=== PATIENT | female | born 1955 | race Caucasian/White ===

== ENCOUNTER → 2017-06-21 10:23 | Outpatient (CLI) | payer OTHER, SELFPAY ==
--- NOTE | 2017-06-21 10:32 | CT_ITS ---
CT chest wo con HISTORY: Smoker, dyspnea on exertion, ITS.REASON: HX NICOTINE DEPENDENCE ORDERING PHYSICIAN: Rizwan Yen MD PATIENT AGE: 61 years TECHNIQUE: Axial images obtained. Sagittal and coronal reformatted images are also generated and reviewed. CONTRAST: 75ml Isovue 370 I.V. COMPARISON: None FINDINGS: No mediastinal or hilar mass or adenopathy. Normal heart size. Coronary artery calcifications are absent. No aortic aneurysm. Main pulmonary artery does not appear enlarged. Biapical fibrotic changes are present. There is hyperinflation with attenuation of the peripheral pulmonary vessels and mild bronchial thickening consistent with obstructive chronic bronchitis There is evidence of old granulomatous disease with scattered calcified granulomas and calcified nodes. There are scattered small noncalcified pulmonary nodules in both lungs. These are 4 mm or less and have a low level of suspicion for malignancy. No effusions or infiltrates. There is a slight curvature of the thoracic spine with upper thoracic scoliosis convex left and lower thoracic scoliosis convex right. Upper abdominal images show no acute finding. IMPRESSION: 1. Obstructive chronic bronchitis with evidence of old granulomatous disease. Small less than 4 mm noncalcified pulmonary nodules are present probably benign. Recommend [address] follow-up 2. Coronary artery disease
--- NOTE | 2017-06-21 10:33 | NM_ITS ---
NM gurpreet perf SPECT rest str History and Indications: Procedure: Electrocardiogram: Cardiac stress and resting SPECT images: Conclusion: History and Indications: Hypertension, hyperlipidemia, tobacco use, family history shortness of breath and palpitations Procedure: Patient exercised on Eugenio protocol 8 minutes and 45 seconds, resting heart rate was 70 beats prominent, resting blood pressure 152/83, with exercise maximum heart rate achieved was 1 43 bpm which is equal to 90% of the maximum predicted heart rate and a blood pressure was 182/88, test was started due to shortness of breath and leg fatigue. Patient has good exercise capacity achieved 10.1mets of workload on treadmill, the blood pressure response to exercise was adequate. Electrocardiogram: Resting electrocardiogram showed sinus rhythm, with exercise there is [address] segment depression noted from the baseline EKG pronounced in the recovery. The EKG portion of the exercise Myoview is positive for ischemia. Cardiac stress and resting SPECT images: Cardiac stress and resting SPECT images were obtained using technetium 99 Myoview 10.06 mCi at rest and 31.9 mCi at stress, gated SPECT further analysis of segmental wall motion and calculation of ejection fraction also done. Cardiac stress and resting SPECT images show mild decreased tracer activity in the anteroseptal area with normal contractility in the gated SPECT is likely secondary to soft tissue attenuation, no reversible ischemia seen. Computer derived ejection fraction 62% with no obvious regional wall motion abnormality, right ventricle is normal size and contractility. Conclusion: 1. The EKG portion of the exercise Myoview is positive for ischemia, patient has good exercise capacity achieved 10.1mets of workload on treadmill, the blood pressure response to exercise was adequate, test was started shortness of breath. 2. No obvious scintigraphic evidence of reversible ischemia seen, the ejection fraction is 62% with no obvious regional wall motion abnormality, right ventricle is normal size and contractility.
--- NOTE | 2017-06-21 11:53 | HMH.ITSHM ---
ZIAC WELLBUTRIN OMEPRAZOLE ASA ATORVASTATIN ALPRAZOLAM
[2017-06-21 12:39] LABS: Basophils % 0.4 % (0.1-2.0); Eosinophils # 0.1 K/mm3 (0.0-0.4); Eosinophils % 1.6 % (0.1-12.0); Hematocrit 40.3 % (37.0-47.0); Lymphocytes # 2.2 K/mm3 (0.7-4.5); Mean Corpuscular HGB Conc 32.4 g/dL (31.8-35.4); Mean Corpuscular Hemoglobin 30.3 pg (27.0-31.2); Mean Corpuscular Volume 93.4 fl (81-99); Mean Platelet Volume 7.3 fl (7.4-10.4); Monocytes # 0.3 K/mm3 (0.1-1.0); Monocytes % 3.8 % (1.7-9.3); Neutrophils # 4.1 K/mm3 (1.8-7.8); Neutrophils % 61.2 % (37.0-80.0); Platelet Count 299 K/mm3 (142-424); Red Blood Count 4.31 M/mm3 (4.20-5.40); Red Cell Distribution Width 12.2 % (11.5-17.5); White Blood Count 6.7 K/mm3 (4.8-10.8)
[2017-06-21 13:34] LABS: Alanine Aminotransferase 29 U/L (12-78); Albumin Level 4.1 gm/dL (3.4-5.0); Albumin/Globulin Ratio 1.3 (1.1-1.8); Alkaline Phosphatase 102 U/L (46-116); Anion Gap 8.6 mEq/L (5-15); Aspartate Amino Transferase 23 U/L (15-37); Bilirubin,Total 0.6 mg/dL (0.2-1.0); Blood Urea Nitrogen 12 mg/dL (7-18); Calcium 8.7 mg/dL (8.5-10.1); Carbon Dioxide 29 mmol/L (21.0-32.0); Chloride 100 mmol/L (98-107); Chol/HDL Ratio 3.2 (1-3.5); Cholesterol 131 mg/dL (140-200); Creatinine,Serum 0.61 mg/dL (0.55-1.02); Estimated Glomerular Filt Rate 100 ml/min (>60); GFR (African American) 121 ML/MIN (>60); Globulin 3.1 gm/dl (1.3-3.2); Glucose 90 mg/dL (74-106); HDL Cholesterol 41 mg/dL (29-89); LDL Cholesterol 78 mg/dL (0-130); Potassium 3.6 mmoL/L (3.5-5.1); Sodium 134 mmol/L (136-145); Thyroid Stimulating Hormone 0.85 uIU/ml (0.358-3.740); Total Protein,Serum 7.2 gm/dL (6.4-8.2); Triglycerides 61 mg/dL (30-200); VLDL Cholesterol 12 mg/dL (0-40)
[2017-06-22 20:10] LABS: Vitamin B12 402 pg/mL (232-1245); Vitamin D 25 Hydroxy 44.7 ng/mL (30.0-100.0)
== END ==
PROVIDERS: Family Provider Internal Medicine Adolescent Medicine; PCP Nurse Practitioner Family; Visit Provider Internal Medicine Adolescent Medicine
DX: Z87.891 Personal history of nicotine dependence; R06.09 Other forms of dyspnea; E78.2 Mixed hyperlipidemia
CPT/HCPCS: 36415; 71250; 78452; 80053; 80061; 82607; 82652; 84443; 85025; 93017; A9502

== ENCOUNTER → 2018-07-09 11:51 | Outpatient (CLI) | payer OTHER, SELFPAY ==
--- NOTE | 2018-07-09 11:54 | XR_ITS ---
XR foot wt bearing RT 3V HISTORY: Right foot pain ITS.REASON: pain ORDERING PHYSICIAN: Lilo Montejo DPM PATIENT AGE: 62 years COMPARISON: None FINDINGS: There is mild hallux valgus. Hypertrophic changes are present at the distal aspect of the first metatarsal with mild osteoarthritis of the first MTP joint. No fracture or dislocation. No lytic or blastic change. IMPRESSION: Hallux valgus with bunion formation and osteoarthritis of the first MTP joint
--- NOTE | 2018-07-09 11:54 | XR_ITS ---
XR foot wt bearing LT 3V HISTORY: Foot pain ITS.REASON: pain ORDERING PHYSICIAN: Lilo Montejo DPM PATIENT AGE: 62 years COMPARISON: None FINDINGS: There is moderate hallux valgus with mild lateral subluxation of the proximal phalanx of the great toe. There is mild osteoarthritis of the first MTP joint with bunion formation at the distal aspect of the first metatarsal. No bony erosive process. No fracture or dislocation. There is an ununited fracture involving the mid aspect of the middle phalanx of the third toe. Osteoarthritic changes are present at the second and third metatarsal tarsal joints with widening of the first intermetatarsal space. IMPRESSION: Moderate hallux valgus with bunion formation and osteoarthritis of the first MTP Osteoarthritis of the second and third metatarsal tarsal joints with widening of the first metatarsal space Old ununited fracture of the middle phalanx of the third toe
== END ==
PROVIDERS: PCP Internal Medicine Adolescent Medicine; Visit Provider Podiatrist
DX: M19.071 Primary osteoarthritis, right ankle and foot (principal); M19.072 Primary osteoarthritis, left ankle and foot
CPT/HCPCS: 73630

== ENCOUNTER → 2018-10-29 10:07 | Outpatient (CLI) | payer OTHER, SELFPAY ==
--- NOTE | 2018-10-29 10:11 | CT_ITS ---
CT lung screening EXAM: CT LUNG LOW DOSE WO CONTRAST HISTORY: 30 pack-year smoking history, asymptomatic for lung cancer ITS.REASON: H/O NICOTINE DEPENDENCE ORDERING PHYSICIAN: Lisa Simmons APRN PATIENT AGE: 63 years COMPARISON: 06/21/2017 TECHNIQUE: The exam was performed on a GE Light Speed [address] scanner using 2.90 mGy CTDI. A low dose helical CT CHEST was performed on a multi-detector scanner. All CT scans at the facility use one or more dose reduction, viz: automated exposure control, ma/kV adjustment per patient size (including targeted exams where dose is matched to indication, i.e. head), or iterative reconstruction technique. The LDCT was performed in a facility that meets the criteria for the screening program. Data regarding this exam was submitted to ACR which is an approved registry. The order for this exam indicates that it came as a result of a lung cancer screening counseling shard decision-making visit that included all the elements required of such a visit including smoking cessation. The radiologist interpreting this exam meets the CMS criteria for the LDCT lung cancer screening program. The exam is reported using the Lung-RADS classification scale and reported to the ACR registry. NOTE: This study was performed for the specific purposes of lung cancer screening and is not an alternative to diagnostic chest CT. RADIATION DOSE: CTDI vol(CT dose Index-volume) = 2.90mG DLP (Dose Length Product) = 98.21 mGcm FINDINGS: COPD with scattered calcified nodules. There are scattered noncalcified pulmonary nodules which are 5 mm or less and are unchanged. There are mild fibrotic changes in the lung apices . No new nodules demonstrated. Coronary artery calcifications are present. No effusions or infiltrates. Thoracic scoliosis convex left superiorly and convex right inferiorly. IMPRESSION: 1. Lung RADS Category: 2, benign 2. Other findings: COPD, coronary artery disease RECOMMENDATIONS: 12 month LDCT follow-up
== END ==
PROVIDERS: PCP Internal Medicine Adolescent Medicine; Visit Provider Nurse Practitioner Family
DX: Z12.2 Encounter for screening for malignant neoplasm of respiratory organs (principal); Z87.891 Personal history of nicotine dependence

== ENCOUNTER → 2018-11-29 11:32 | Outpatient (CLI) | payer OTHER, SELFPAY ==
--- NOTE | 2018-11-29 11:34 | NM_ITS ---
CARDIOLITE SPECT MYOCARDIAL PERFUSION LEXISCAN, REST AND STRESS: History: Hypertension, hyperlipidemia, former tobacco use, family history, shortness of breath and palpitations. Procedure: Patient exercised on Eugenio protocol 8 metastases and 9 seconds, resting heart rate was 58 bpm resting blood pressure 147/63, with exercise maximum heart rate achieved was 1 23 bpm which is less than 85% of the maximum predicted heart rate and a blood pressure was 162/82. Test was stopped due to shortness of breath. Patient has adequate exercise capacity achieved 9.3mets of workload on treadmill, the blood pressure response to exercise was adequate. Electrocardiogram: Resting electrocardiogram Showed sinus rhythm, with exercise there is [address] segment depression noted from the baseline EKG, the EKG portion of the exercise Myoview is positive for ischemia. Cardiac stress and resting SPECT images: Cardiac stress and the suspect images were obtained using technetium 99 Myoview 32.0 mCi at stress and 10.5 mCi at rest gated SPECT further analysis of segmental wall motion and calculation of the ejection fraction also done. Cardiac stress and rest SPECT images show uniform myocardial activity without segmental perfusion abnormality, computer derived ejection fraction is over 65% with no regional wall motion abnormality, right ventricle is normal size and contractility. Conclusion: 1. The EKG portion of the exercise Myoview is positive for ischemia, patient has adequate exercise capacity achieved 9.3mets of workload on treadmill, the blood pressure response to exercise was adequate, patient did not achieve the target heart rate. 2. No scintigraphic evidence of reversible ischemia seen at this level of exercise, either derived ejection fraction is over 65% with no regional wall motion abnormality, right ventricle is normal size and contractility.
--- NOTE | 2018-11-29 11:49 | CI_ITS ---
Cerebrovascular Exam Indications: 780.4 Dizziness and giddiness. IMPRESSIONS 1. The bilateral vertebral arteries are patent with normal antegrade flow. 2. Study suggests less than 20% stenosis involving the right internal carotid artery and the left internal carotid artery. No change from the study of 17-Nov-2014. 3. Tortuous carotid arteries seen bilaterally. History: Risk factors: Hypertension. Carotid duplex study. Complete study and Doppler flow study including spectral analysis, color and pierce scale imaging. Location: Vascular laboratory. Patient status: Outpatient. Tables: Arterial flow: + +--------+--------+ Location V sys V ed + +--------+--------+ Right CCA - proximal 86.4cm/s 32.2cm/s + +--------+--------+ Right CCA - distal 73.9cm/s 24.4cm/s + +--------+--------+ Right ECA 86.4cm/s -------- + +--------+--------+ Right ICA - proximal 58.1cm/s 23.6cm/s + +--------+--------+ Right ICA - mid 81.7cm/s 25.1cm/s + +--------+--------+ Right ICA - distal 110cm/s 47.9cm/s + +--------+--------+ Right vertebral 44.8cm/s -------- + +--------+--------+ Left CCA - proximal 85.6cm/s 28.3cm/s + +--------+--------+ Left CCA - distal 76.2cm/s 29.9cm/s + +--------+--------+ Left ECA 91.9cm/s -------- + +--------+--------+ Left ICA - proximal 106cm/s 41.6cm/s + +--------+--------+ Left ICA - mid 93.9cm/s 40.5cm/s + +--------+--------+ Left ICA - distal 85.1cm/s 37cm/s + +--------+--------+ Left vertebral 48.7cm/s -------- + +--------+--------+ Velocity ratios: + + + + + + Right, V sys Right, V ed Left, V sys Left, V ed + + + + + + Max ICA/dist CCA 1.49 1.96 1.39 1.39 + + + + + + (Report amended ) Electronically signed by: Gatito Cameron [id number]
--- NOTE | 2018-11-29 11:49 | CA_ITS ---
PROCEDURE: 2-D M-mode and color Doppler study INDICATIONS FOR THE TEST: Chest pain COPDX Heart Murmur Tobacco Smoking PalpitationsX Fatigue Syncope Edema HypertensionXDiabetes Mellitus Rheumatic Fever SOBXDOE Obesity Hyperlipidemia Family History HD Additional History X PATIENT INFORMATION HEIGHT: 63 WEIGHT:139 GENDER: Female B/P:115/63 2-D/M-MODE INTERPRETATION: 2-D MEASUREMENTS OBSERVED VALUES IN CMS Right Ventricular Dimension (RVDd) 2.0 Interventricular Septum (Thickness)(IVsd) .9 Left Ventricular Internal Dimensions(LVIDd) 4.5 Left Ventricular Posterior Wall (Thickness)(LVPWd) .9 Aortic Root 3.0 Aortic Cusp Separation 1.6 Left Atrial Dimensions (LAD) 3.3 2D 1. Left atrium is qualitatively mildly enlarged, left ventricle is normal size, left ventricle wall thickness is upper limit of the normal, there is preserved left ventricular systolic function, visually estimated ejection fraction 55% with no regional wall motion abnormality. 2. The right atrium and right ventricle are normal size and contractility. 3. The aortic, mitral and tricuspid valvular grossly normal. 4. The pulmonic valve is poorly visualized. 5. No significant pericardial effusion noted. DOPPLER INTERROGATION: Doppler interrogation of the aortic, mitral and tricuspid valvular presence of mild mitral and tricuspid regurgitation, tricuspid regurgitation jet velocity is inadequate for calculation of the right ventricular systolic pressure, grade 1 diastolic dysfunction seen without tissue Doppler evidence of raised left atrial pressure. CONCLUSION: 1. Normal left ventricular size, preserved left ventricular systolic function, visually estimated ejection fraction 55% with no regional wall motion abnormality, grade 1 diastolic dysfunction seen without tissue Doppler evidence of raised left atrial pressure. 2. Mild mitral and tricuspid regurgitation 3. No significant pericardial effusion noted.
--- NOTE | 2018-11-29 14:38 | HMH.ITSHM ---
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 []aspirin bisoprolol bupropion omeprazole atorvastatin celecoxib anivert zofran
== END ==
LOC: RAD 11:32
PROVIDERS: PCP Internal Medicine Adolescent Medicine; Visit Provider Internal Medicine Cardiovascular Disease
DX: R06.02 Shortness of breath (principal); R00.2 Palpitations; I10 Essential (primary) hypertension; R53.83 Other fatigue; R91.8 Other nonspecific abnormal finding of lung field; E78.5 Hyperlipidemia, unspecified; I25.10 Atherosclerotic heart disease of native coronary artery without angina pectoris
CPT/HCPCS: 78452; 93017; 93306; 93880; A9502

== ENCOUNTER → 2018-12-12 12:35 | Outpatient (CLI) | payer OTHER, SELFPAY ==
[2018-12-12 13:05] LABS: Basophils % 0.6 % (0.1-2.0); Eosinophils # 0.2 K/mm3 (0.0-0.4); Eosinophils % 4.7 % (0.1-12.0); Hematocrit 34.4 % (37.0-47.0); Lymphocytes # 1.6 K/mm3 (0.7-4.5); Lymphocytes % 31.1 % (10-50); Mean Corpuscular Hemoglobin 29.1 pg (27.0-31.2); Mean Corpuscular Volume 90.7 fl (81-99); Monocytes # 0.3 K/mm3 (0.1-1.0); Monocytes % 5.4 % (1.7-9.3); Neutrophils % 58.1 % (37.0-80.0); Platelet Count 263 K/mm3 (142-424); Red Blood Count 3.79 M/mm3 (4.20-5.40); Red Cell Distribution Width 12.5 % (11.5-17.5); White Blood Count 5.2 K/mm3 (4.8-10.8)
[2018-12-12 15:14] LABS: Anion Gap 11.8 mEq/L (5-15); Blood Urea Nitrogen 16 mg/dL (7-18); Carbon Dioxide 28 mmol/L (21.0-32.0); Chloride 103 mmol/L (98-107); Creatinine,Serum 0.69 mg/dL (0.55-1.02); Estimated Glomerular Filt Rate 86 ml/min (>60); GFR (African American) 104 ML/MIN (>60); Potassium 3.8 mmoL/L (3.5-5.1); Sodium 139 mmol/L (136-145)
[2018-12-12 15:15] LABS: Calcium 8.5 mg/dL (8.5-10.1); Glucose 97 mg/dL (74-106)
== END ==
PROVIDERS: Visit Provider Internal Medicine
DX: Z95.5 Presence of coronary angioplasty implant and graft (principal)
CPT/HCPCS: 36415; 80048; 85025

== ENCOUNTER 2018-12-31 16:02 | Outpatient (RCR) | payer OTHER, SELFPAY | END 2019-02-24 13:55 | disposition home or self-care (01) | LOC: PT 16:02 | PROVIDERS: Visit Provider Internal Medicine Cardiovascular Disease | DX: I25.10 Atherosclerotic heart disease of native coronary artery without angina pectoris (principal); R00.2 Palpitations; E78.2 Mixed hyperlipidemia; I10 Essential (primary) hypertension; Z82.49 Family history of ischemic heart disease and other diseases of the circulatory system | CPT/HCPCS: 93798 ==

== ENCOUNTER → 2019-03-13 13:51 | Outpatient (CLI) | payer BC, SELFPAY ==
[2019-03-13 16:15] LABS: Alanine Aminotransferase 20 U/L (12-78); Albumin Level 3.7 gm/dL (3.4-5.0); Alkaline Phosphatase 100 U/L (46-116); Aspartate Amino Transferase 16 U/L (15-37); Bilirubin,Direct 0.1 mg/dL (0.0-0.2); Bilirubin,Indirect 0.5 mg/dL (0.0-0.9); Bilirubin,Total 0.6 mg/dL (0.2-1.0); Chol/HDL Ratio 3.4 (1-3.5); Cholesterol 108 mg/dL (140-200); HDL Cholesterol 32 mg/dL (29-89); LDL Cholesterol 55 mg/dL (0-130); Total Protein,Serum 7.1 gm/dL (6.4-8.2); Triglycerides 107 mg/dL (30-200); VLDL Cholesterol 21 mg/dL (0-40)
== END ==
PROVIDERS: PCP Internal Medicine Adolescent Medicine; Visit Provider Internal Medicine Cardiovascular Disease
DX: E78.5 Hyperlipidemia, unspecified (principal); I10 Essential (primary) hypertension; I25.10 Atherosclerotic heart disease of native coronary artery without angina pectoris; R00.2 Palpitations; R06.02 Shortness of breath; R40.0 Somnolence; R53.83 Other fatigue; Z82.49 Family history of ischemic heart disease and other diseases of the circulatory system; E78.2 Mixed hyperlipidemia
CPT/HCPCS: 36415; 80061; 80076

== ENCOUNTER → 2019-04-29 15:14 | Outpatient (CLI) | payer BC, SELFPAY ==
--- NOTE | 2019-04-29 15:18 | XR_ITS ---
PROCEDURE: XR FOOT WT BEARING RT 3V CLINICAL INDICATION: pain Dorsal foot pain COMPARISON: [id number] XR foot wt bearing RT 3V from 07/09/2018 [id number] XR foot wt bearing LT 3V from 07/09/2018 FINDINGS: Hallux valgus with osteoarthritis of the 1st MTP joint and bunion formation. Mild osteoarthritic changes 1st and 2nd metatarsal tarsal joint. Borderline pes planus. Overall no significant change. Mild widening of the 1st intermetatarsal space Other findings:None. IMPRESSION: Overall no change hallux valgus with bunion formation and osteoarthritis of the 1st MTP joint and 2nd and 3rd metatarsal tarsal joint Dictated by: Huan Conklin MD 04/29/2019 15:43 Electronically signed by Huan Conklin MD in [place] 04/29/2019 15:43
--- NOTE | 2019-04-29 15:18 | XR_ITS ---
PROCEDURE: XR FOOT WT BEARING LT 3V CLINICAL INDICATION: pain Dorsal foot pain with numbness of the toes COMPARISON: [id number] XR foot wt bearing RT 3V from 07/09/2018 [id number] XR foot wt bearing LT 3V from 07/09/2018 FINDINGS: Hallux valgus with bunion formation and mild osteoarthritis of the 1st metatarsophalangeal joint. Osteoarthritic changes are present also at the tarsal metatarsal junction at the 2nd 3rd and 4th metatarsal tarsal joints. There is borderline pes planus.. There is mild widening of the 1st intermetatarsal space Other findings:None. IMPRESSION: Hallux valgus with osteoarthritis of the 1st MTP joint and bunion formation. No change osteoarthritis of the 2nd 3rd and 4th metatarsal tarsal junction with mild widening of the 1st intermetatarsal space Dictated by: Huan Conklin MD 04/29/2019 15:36 Electronically signed by Huan Conklin MD in [place] 04/29/2019 15:36
== END ==
PROVIDERS: PCP Internal Medicine Adolescent Medicine; Visit Provider Podiatrist
DX: M19.071 Primary osteoarthritis, right ankle and foot (principal); M19.072 Primary osteoarthritis, left ankle and foot; M20.11 Hallux valgus (acquired), right foot; M20.12 Hallux valgus (acquired), left foot; M89.8X7 Other specified disorders of bone, ankle and foot
CPT/HCPCS: 73630

== ENCOUNTER → 2019-05-06 07:12 | Outpatient (CLI) | payer BC, SELFPAY ==
--- NOTE | 2019-05-06 | CA_ITS ---
APPROVED REPORT Exam: Exercise Treadmill Technologist: Rhea Sanchez Ht: 5 ft 3 in Wt: 142 lbs BSA: 1.67 m2 HR: 73 bpm BP: 144/81 mmHg Indications: Shortness of Breath Medical History Medications: Omeprazole,,,,, Alprazolam,,,,, Aspirin,,,,, Vitamin D3,,,,, Atorvastatin,,,,, Plavix,,,,, BisOPROLOL,,,,, BuPROPION,,,,, Celecoxib,,,,, OmeGA 3,,,,, Stress Test Details Test: Exercise stress testing was performed using a Eugenio protocol. HR Resting HR: 80 bpm Max Heart Rate (APMHR): 157 bpm Max HR Achieved: 143 bpm Target HR (85% APMHR): 133 bpm % of APMHR: 91 Recovery HR: 76 bpm BP Resting BP: 144.0/81.0 mmHg Max BP: 184.0/78.0 mmHg Recovery BP: 121.0/68.0 mmHg ECG Clinical Exercise duration: 06:51 min Highest Stage Achieved: Exercise capacity: 8.2 METs Stress ECG Conclusion Resting ECG: Normal sinus rhythm, NS ST abnormalities inferiorly and anteriorly. Patient exercised 6:51 on Eugenio Protocol. Test stopped due to shortness of air and foot pain. Symptoms: No chest pain. Arrhythmias/Ectopy: None ST-T Changes: [address] depression inferiorly and laterally. Conclusion: The EKG portion of the exercise Myoview is nondiagnostic due to baseline abnormal EKG. However additional ischemia cannot be excluded Test Summary RECOVERY 01:00 0.0 0.0 118 . 184/ 78 . Stop exercise at 06:51 REST . . . . . . . Standing REST 04:40 0.0 0.0 80 . 144/ 81 . . Stage 1 01:00 10.0 1.7 96 . . . . Stage 1 02:00 10.0 1.7 110 . . . . Stage 1 03:00 10.0 1.7 114 . 172/ 88 . . Stage 2 01:00 12.0 2.5 120 . . . . Stage 2 02:00 12.0 2.5 128 . . . . Stage 2 . . . . . . . Myoview Injected Stage 2 03:00 12.0 2.5 131 . 180/ 86 . . Stage 3 . . . . . . . Protocol changed to Manual Treadmill Stage 3 00:51 14.0 2.7 143 . . . Stop exercise at 06:51 RECOVERY 01:00 0.0 0.0 118 . 184/ 78 . . RECOVERY 02:00 0.0 0.0 98 . 184/ 78 . . RECOVERY 03:00 0.0 0.0 85 . 162/ 79 . . RECOVERY 04:00 0.0 0.0 79 . 162/ 79 . . RECOVERY 05:00 0.0 0.0 82 . 137/ 73 . . RECOVERY 06:00 0.0 0.0 76 . 137/ 73 . . RECOVERY 07:00 0.0 0.0 74 . 121/ 68 . . RECOVERY 08:00 0.0 0.0 71 . 121/ 68 . . RECOVERY 09:00 0.0 0.0 74 . 123/ 65 . . RECOVERY 09:26 0.0 0.0 72 . 123/ 65 . . Electronically signed by : Brendon Galo, 05/07/2019 06:02:43
--- NOTE | 2019-05-06 07:13 | NM_ITS ---
APPROVED REPORT Exam: Nuclear Stress Test Indication: Fatigue, HTN, CAD, High cholesterol, Former tobacco use, Family history Patient Location: Outpatient Stress Tech: Rhea Sanchez OR Tech:Minna Damon, ARRT, RT (R)(N) Ht: 5 ft 3 in Wt: 142 lbs Bra Size: 36B BSA: 1.67 m2 BMI: 25.1 History: Fatigue, HTN, CAD, High cholesterol, Former tobacco use, Family history Procedure: Patient exercised on Eugenio protocol 6:51 minutes and sec, resting heart rate 73 bpm, resting blood pressure 144/81 mmHg, with exercise maximum heart rate achived was 130 bpm which is Greater than 85 % of the maximum predicted heart rate and blood pressure was 172/88 mmHg. Test was stopped due to fatigue. Patient denied any complaint of chest pain. Patient has Adequate exercise capacity, achieved 8.2 METs of workload on treadmill, the blood pressure response to exercise was Adequate. Electrocardiogram Resting electrocardiogram showed sinus rhythm nonspecific ST-T changes, with exercise there is additional 1.[address] segment depression noted from the baseline EKG. The EKG portion of the exercise Myoview is nondiagnostic due to baseline abnormal EKG however due to EKG changes and ST segment depression additional ischemia cannot be entirely excluded. Cardiac Stress and Resting SPECT Images: Cardiac Stress and Resting SPECT images were obtained using technetium 99m Myoview 32.5 mCi stress and 10.47 mCi at rest. Gated SPECT with analysis of segmental wall motion and calculation of ejection fraction also done. Cardiac stress and resting SPECT images show uniform myocardial activity without segmental perfusion abnormality, computer derived ejection fraction is 65% with no regional wall motion abnormality, right ventricle is normal size and contractility. Conclusion: 1. The EKG portion of the exercise Myoview is nondiagnostic due to baseline abnormal EKG, patient has adequate exercise capacity achieved 8.2 mets of workload on treadmill, the blood pressure response to exercise was adequate, there was no exercise-induced chest discomfort, test was stopped due to shortness of breath and fatigue. Due to additional ST segment depression from baseline EKG additional ischemia cannot be excluded. 2. No scintigraphic evidence of reversible ischemia seen at this level of exercise, computer derived ejection fraction is 65% with no regional wall motion abnormality. Right ventricle is normal size and contractility. 3. Equivocal exercise myocardial perfusion imaging. Electronically signed by : Brendon Galo, 05/07/2019 06:05:44
--- NOTE | 2019-05-06 07:13 | CA_ITS ---
APPROVED REPORT EXAM: Comprehensive 2D, Doppler, and color-flow Echocardiogram Testing And Regulating Chief: Mary Carrillo RDCS Ht: 5 ft 3 in Wt: 145lbs BSA: 1.69 BP: 141/69 mmHg Indications: Shortness of Breath, CAD, Hyperlipidemia, Hypertension/HDD 2D Dimensions LVOT 1.61 cm (M/F) 1.5-2.5 M-Mode Dimensions RVDd 3.01 cm (0.9-2.6) LVDd 4.17 cm (3.5-5.7) LVDs 3.17 cm (3.5-5.7) IVSd 0.71 cm (0.6-1.1) PWd 0.64 cm (0.6-1.1) EF (Teich) 48.30% FS 24.00% EDV (Teich) 77.30 mL ESV (Teich) 40.00 mL LV Diastology E/A Ratio 0.79 Mitral Valve MV A Velocity 53.00 (40-130 cm/s) Left Ventricle Left atrium is mildly enlarged, left ventricle is normal size, mild concentric left ventricular hypertrophy, visually estimated ejection fraction 50%, there is moderate hypokinesis involving the inferior basal wall. Grade 1 diastolic dysfunction seen without tissue Doppler evidence of raise left atrial pressure. Right Ventricle Right atrium and right ventricular normal size and contractility. Aortic Valve Aortic valve is minimally thickened and fibrosed, there is no aortic stenosis or aortic insufficiency Mitral Valve Mitral valve is grossly normal, there is no mitral stenosis, there is mild mitral regurgitation. Tricuspid Valve Tricuspid valve is grossly normal, there is mild tricuspid regurgitation. Tricuspid regurgitation jet velocity is inadequate for calculation of the right ventricular systolic pressure. Pulmonic Valve Pulmonic valve is poorly visualized. Great Vessels Aortic root is normal size. Pericardium No significant pericardial effusion noted. Conclusion 1. Mildly enlarged left atrium, normal left ventricular size, mild concentric left ventricular hypertrophy, visually estimated ejection fraction is 50% with segmental wall motion abnormality described above, grade 1 diastolic dysfunction seen without tissue Doppler evidence of raise left atrial pressure. 2. Mild mitral and tricuspid regurgitation. 3. No significant pericardial effusion noted. Electronically signed by : Brendon Galo, 05/07/2019 06:13:49
--- NOTE | 2019-05-06 07:31 | HMH.ITSHM ---
Current Home Medications as stated by this patient Fany Alvarez or agency service representative. []ATORVASTATIN ASA BISOPROLOL BUPROPION OMEPRAZOLE ALPRAZOLOM CLECOXIB OMEGA 3 VITAMIN D3 PLAVIX
== END ==
PROVIDERS: PCP Internal Medicine Adolescent Medicine; Visit Provider Physician Assistant
DX: R06.02 Shortness of breath (principal); I25.10 Atherosclerotic heart disease of native coronary artery without angina pectoris; E78.5 Hyperlipidemia, unspecified; I10 Essential (primary) hypertension; R53.1 Weakness
CPT/HCPCS: 78452; 93017; 93306; A9502

== ENCOUNTER → 2019-05-16 11:02 | Outpatient (CLI) | payer BC, SELFPAY ==
[2019-05-16 11:30] LABS: Anion Gap 12.9 mEq/L (5-15); Blood Urea Nitrogen 18 mg/dL (7-18); Calcium 8.4 mg/dL (8.5-10.1); Carbon Dioxide 28 mmol/L (21.0-32.0); Chloride 106 mmol/L (98-107); Creatinine,Serum 0.72 mg/dL (0.55-1.02); Estimated Glomerular Filt Rate 82 ml/min (>60); GFR (African American) 99 ML/MIN (>60); Glucose 94 mg/dL (74-106); Potassium 3.9 mmoL/L (3.5-5.1); Sodium 143 mmol/L (136-145)
== END ==
PROVIDERS: Visit Provider Internal Medicine Cardiovascular Disease
DX: I25.10 Atherosclerotic heart disease of native coronary artery without angina pectoris (principal); R06.02 Shortness of breath; R53.1 Weakness; R53.83 Other fatigue; E78.5 Hyperlipidemia, unspecified; I10 Essential (primary) hypertension
CPT/HCPCS: 36415; 80048

== ENCOUNTER → 2019-06-27 10:39 | Outpatient (CLI) | payer BC, SELFPAY | PROVIDERS: PCP Internal Medicine Adolescent Medicine; Visit Provider Internal Medicine Cardiovascular Disease | DX: R40.0 Somnolence (principal); R06.83 Snoring ==

== ENCOUNTER → 2019-12-11 08:15 | Outpatient (CLI) | payer BC, SELFPAY ==
[2019-12-11 08:37] LABS: Chloride 109 mmol/L (98-107); Sodium 142 mmol/L (136-145)
[2019-12-11 08:38] LABS: Potassium 3.9 mmoL/L (3.5-5.1)
[2019-12-11 08:40] LABS: Blood Urea Nitrogen 16 mg/dl (7-17); Estimated Glomerular Filt Rate 101 ml/min (>60); GFR (African American) 122 ML/MIN (>60)
[2019-12-11 08:41] LABS: Anion Gap 9.9 mEq/L (5-15); Calcium 8.7 mg/dl (8.4-10.2); Carbon Dioxide 27 mmol/L (22.0-30.0); Glucose 101 mg/dl (74-100)
== END ==
PROVIDERS: Visit Provider Internal Medicine Cardiovascular Disease
DX: I25.10 Atherosclerotic heart disease of native coronary artery without angina pectoris (principal); I10 Essential (primary) hypertension; R53.83 Other fatigue
CPT/HCPCS: 36415; 80048

== ENCOUNTER → 2020-02-03 10:21 | Outpatient (CLI) | payer OTHER, SELFPAY ==
[2020-02-03 11:42] LABS: Coronavirus 19 IgG Antibody Negative (Negative); Coronavirus 19 IgM Antibody Negative (Negative)
== END ==
PROVIDERS: Visit Provider Internal Medicine Cardiovascular Disease
DX: Z03.818 Encounter for observation for suspected exposure to other biological agents ruled out (principal)
CPT/HCPCS: 36415; 86328

== ENCOUNTER → 2020-02-05 19:58 | Outpatient (CLI) | payer OTHER, SELFPAY | PROVIDERS: PCP Internal Medicine Adolescent Medicine; Visit Provider Internal Medicine Cardiovascular Disease | DX: R06.83 Snoring (principal); R40.0 Somnolence; R53.83 Other fatigue | CPT/HCPCS: 95810 ==

== ENCOUNTER 2020-03-25 10:00 | Outpatient (RCR) | payer OTHER, SELFPAY ==
--- NOTE | 2020-02-24 10:38 | HMH.PTOPEV ---
PT Outpatient Evaluation Rehab PT Outpatient Evaluation Start: 02/24/20 10:15 Freq: Status: Active Protocol: Document 02/24/20 10:15 SOLEDAD (Rec: 02/24/20 10:38 PDESEROUX [id number]) Electronically Signed By Manan Espana, PT 02/24/20 10:15 Outpatient Therapy Subjective History Subjective History Pt. is a 64 year old female who presents to Outpatient PT clinic w/ complaints of subacute and constant LB/LLE P! of insidious onset 3 wks. ago. Pt . describes symptoms as a sharp ache radiating inferior in the LLE, but numbness/ tingling in the LLE lateral ft ./digits. Pt. reports symptoms first beginning in her LB then radiated deep into the hip and inferiorly to digits. 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 Pt. reports some symptom relief w/ standing/walking. Pt. also reported complete symptom relief for 1 day w/ Prednisone pack, but states she has finished the pack. Pt. reports symptoms worsen at night and that she can't find a position to get comfortable. Pt. denies having recent diagnostic imaging nor injections for current pathology. Current medications include Atorvastatin, Bisoprolol, Buproprion, Omeprazole, Alprazolom, Celecoxib, [employer] 3, Vitamin D3 , Tylenol, Zofran, Meclizine, and Nitrofurantoin. PMH includes CAD w/ stent replacement 1 year ago, Migraines, OA, Hypertension, and a Cholecystectomy. Chief Complaint Pain,Paresthesia Symptom Type Ache,Throb,Sharp,Burning, Numbness,Tingling Symptoms Relieved By Prescription Meds Symptoms Aggravated By Supine,Bending/Stooping,
== END 2020-04-08 15:33 | disposition home or self-care (01) ==
LOC: PT.CARL 10:00
PROVIDERS: Visit Provider Nurse Practitioner Family
DX: M54.42 Lumbago with sciatica, left side (principal)
CPT/HCPCS: 97110; 97140; 97163

== ENCOUNTER → 2020-08-30 15:40 | Outpatient (CLI) | payer OTHER, SELFPAY ==
--- NOTE | 2020-08-30 15:43 | MM_ITS ---
PROCEDURE: MM DIG SCREENING MAMM BI W/CAD Digital Breast Tomosynthesis Included CLINICAL INDICATION: SCREENING There is a history of breast cancer in the patient's mother and maternal grandmother both diagnosed after menopause. COMPARISON: MG DMSB DIG MAMM-SCREEN JOSUÉ from 06/11/2013 MG DMSB DIG MAMM-SCREEN JOSUÉ from 09/09/2015 MG DMDXUR DIG MAMM-DX UNI-RT from 05/19/2016 TECHNIQUE: Standard CC and MLO images and 3D Tomosynthesis was obtained. R2 CAD reviewed. FINDINGS: Moderate scattered fibroglandular densities are seen throughout both breasts. There is a mole marker near the axillary tail right breast. There is a single CAD marking right breast but this is due to arterial calcification. There is minimal arterial calcification in each breast. There is a benign-appearing calcification in each breast. There is no new or suspicious lesion in either breast and no suspicious microcalcifications. IMPRESSION: Fibrofatty parenchyma with no suspicious lesions seen BI-RAD Category: 2 Benign Finding(s) FOLLOW-UP: 1YR 1 Year Follow-up (A letter has been sent to the patient regarding results of the study.) Dictated by: Dr. Austin Pollard MD 09/06/2020 08:04 Dr. Austin Pollard MD in [place] 09/06/2020 08:04
== END ==
PROVIDERS: PCP Internal Medicine Adolescent Medicine; Visit Provider Internal Medicine Adolescent Medicine
DX: Z12.31 Encounter for screening mammogram for malignant neoplasm of breast (principal)
CPT/HCPCS: 77063; 77067

== ENCOUNTER → 2021-01-13 13:06 | Outpatient (CLI) | payer OTHER, MEDICARE, SELFPAY ==
[2021-01-13 13:36] LABS: Basophils % 0.8 % (0.1-2.0); Eosinophils # 0.1 K/mm3 (0.0-0.4); Eosinophils % 2.3 % (0.1-12.0); Hematocrit 38.7 % (37.0-47.0); Hemoglobin 12.9 g/dL (12.2-16.2); Lymphocytes # 1.9 K/mm3 (0.7-4.5); Lymphocytes % 34.2 % (10-50); Mean Corpuscular HGB Conc 33.2 g/dL (31.8-35.4); Mean Corpuscular Hemoglobin 29.7 pg (27.0-31.2); Mean Corpuscular Volume 89.4 fl (81-99); Mean Platelet Volume 7.7 fl (7.4-10.4); Monocytes # 0.2 K/mm3 (0.1-1.0); Monocytes % 4.1 % (1.7-9.3); Neutrophils # 3.3 K/mm3 (1.8-7.8); Neutrophils % 58.7 % (37.0-80.0); Platelet Count 287 K/mm3 (142-424); Red Blood Count 4.33 M/mm3 (4.20-5.40); Red Cell Distribution Width 13.5 % (11.5-17.5); White Blood Count 5.7 K/mm3 (4.8-10.8)
[2021-01-13 14:20] LABS: Alanine Aminotransferase 19 U/L (12-78); Albumin Level 4.6 g/dl (3.5-5.0); Albumin/Globulin Ratio 1.6 (1.1-1.8); Alkaline Phosphatase 97 U/L (38-126); Anion Gap 15.2 mEq/L (5-15); Aspartate Amino Transferase 35 U/L (14-36); Bilirubin,Total 0.7 mg/dl (0.2-1.3); Blood Urea Nitrogen 18 mg/dl (7-17); Calcium 9.2 mg/dl (8.4-10.2); Carbon Dioxide 27 mmol/L (22.0-30.0); Chloride 101 mmol/L (98-107); Estimated Glomerular Filt Rate 84 ml/min (>60); GFR (African American) 102 ML/MIN (>60); Globulin 2.9 g/dL (1.3-3.2); Glucose 96 mg/dl (74-100); Magnesium 1.9 mg/dl (1.6-2.3); Potassium 4.2 mmoL/L (3.5-5.1); Sodium 139 mmol/L (136-145); Total Protein,Serum 7.5 g/dl (6.3-8.2)
[2021-01-13 14:34] LABS: Triiodothryronine (T3) Uptake 27 % (23.5-40.5)
[2021-01-13 14:36] LABS: 25-OH Vitamin D, Total 42.3 ng/mL (30-100)
[2021-01-13 14:48] LABS: Thyroid Stimulating Hormone 1.38 uIU/mL (0.465-4.68)
[2021-01-13 15:10] LABS: Vitamin B12 338 pg/mL (239-931)
== END ==
PROVIDERS: Visit Provider Internal Medicine Adolescent Medicine
DX: I10 Essential (primary) hypertension (principal); E78.5 Hyperlipidemia, unspecified; Z79.899 Other long term (current) drug therapy; Z68.24 Body mass index [BMI] 24.0-24.9, adult
CPT/HCPCS: 36415; 80053; 82306; 82607; 83735; 84436; 84443; 84479; 85025

== ENCOUNTER → 2021-01-21 07:47 | Outpatient (CLI) | payer MEDICARE, OTHER, SELFPAY ==
--- NOTE | 2021-01-21 07:51 | MR_ITS ---
PROCEDURE: MR HEAD/BRAIN WO CON CLINICAL INDICATION: SYNCOPE AND COLLAPSE COMPARISON: No exams were available for comparison TECHNIQUE: Routine multiplanar multi echo sequences are performed without gadolinium enhancement. FINDINGS: No midline shift, mass effect, intracranial hemorrhage, or hydrocephalus. No evidence of acute infarction. The cerebellopontine angle, cerebellum, and brainstem have an unremarkable appearance. There is scattered periventricular and subcortical T2 white matter hyperintensities which do not demonstrate restricted diffusion. There is a T2 hyperintensity in the anterior limb of the internal capsule on the right. This does not demonstrate restricted diffusion the pituitary, optic chiasm, and corpus callosum have an unremarkable appearance. There is cerebellar tonsillar ectopia of 7 mm. The 4th ventricle has an unremarkable appearance. No evidence of hydrocephalus. The hippocampal gyri are unremarkable in the temporal horns are symmetric. No mastoid effusion or paranasal sinus air-fluid level. Unremarkable appearing orbits. IMPRESSION: 1. Cerebellar tonsillar ectopia/Arnold-Chiari 1. The tonsils extend below the foramen magnum by 7 mm. Unremarkable appearing 4th ventricle and no evidence of hydrocephalus. 2. Scattered T2 white matter hyperintensities. No infratentorial or corpus callosum involvement. No Palacio's fingers. These findings may be related to ischemic gliotic change from microvascular disease. Other etiologies not excluded. Please correlate with clinical parameters. Dictated by: Huan Conklin MD 01/21/2021 09:11 Huan Conklin MD in [place] 01/21/2021 09:11
== END ==
PROVIDERS: PCP Internal Medicine Adolescent Medicine; Visit Provider Internal Medicine Adolescent Medicine
DX: R55 Syncope and collapse (principal); R00.2 Palpitations
CPT/HCPCS: 70551; 95816

== ENCOUNTER → 2021-01-28 09:58 | Outpatient (CLI) | payer MEDICARE, OTHER, SELFPAY | PROVIDERS: PCP Internal Medicine Adolescent Medicine; Visit Provider Internal Medicine Cardiovascular Disease | DX: E78.2 Mixed hyperlipidemia (principal); I10 Essential (primary) hypertension; I25.10 Atherosclerotic heart disease of native coronary artery without angina pectoris; R55 Syncope and collapse | CPT/HCPCS: 93270 ==

== ENCOUNTER → 2021-02-08 07:43 | Outpatient (CLI) | payer MEDICARE, OTHER, SELFPAY ==
--- NOTE | 2021-02-08 07:45 | CA_ITS ---
APPROVED REPORT Exam: Exercise Treadmill Technologist: Rhea Sanchez Ht: 5 ft 3 in Wt: 138 lbs BSA: 1.65 m2 HR: 61 bpm BP: 112/61 mmHg Indications: Chest pain, Syncope Medical History Medications: Omeprazole,,,,, Alprazolam,,,,, Aspirin,,,,, Vitamin D3,,,,, Losartan,,,,, Atorvastatin,,,,, HCTZ,,,,, Tylenol,,,,, Ibuprofen,,,,, BisOPROLOL,,,,, Meclizine,,,,, Aldactone,,,,, Stress Test Details Test: Eugenio HR Resting HR: 63 bpm Max Heart Rate (APMHR): 155.482733 bpm Max HR Achieved: 127 bpm Target HR (85% APMHR): 131.450680 bpm % of APMHR: 81.94 Recovery HR: 72 bpm BP Resting BP: 112.0/61.0 mmHg Max BP: 160.0/74.0 mmHg Recovery BP: 118.0/67.0 mmHg ECG Resting ECG: Normal sinus rhythm, NS ST changes in the standing position Clinical Exercise duration: 06:28 min Highest Stage Achieved: Exercise capacity: 7.0 METs Stress ECG Conclusion Patient exercised 6:28 on Eugenio Protocol. Test stopped due to shortness of air, fatigue. Symptoms: No chest pain. Arrhythmias/Ectopy: None ST-T Changes: 2mm of horizontal and slightly upsloping ST depression inferiorly and laterally. conclusion: EKG changes positive for ischemia but with decreased specificity due to baseline abnormalities. GXT only (no imaging). Test Summary REST . . . . . . . Sitting REST . . . . . . . Standing REST 06:36 0.0 0.0 63 . 112/ 61 . . Stage 1 01:00 10.0 1.7 85 . . . . Stage 1 02:00 10.0 1.7 99 . . . . Stage 1 03:00 10.0 1.7 105 . 130/ 78 . . Stage 2 01:00 12.0 2.5 108 . . . . Stage 2 02:00 12.0 2.5 113 . . . . Stage 2 03:00 12.0 2.5 118 . 146/ 80 . . Stage 3 00:28 14.0 3.4 127 . . . Stop exercise at 06:28 RECOVERY 01:00 0.0 0.0 98 . . . . RECOVERY 02:00 0.0 0.0 84 . 160/ 74 . . RECOVERY 03:00 0.0 0.0 72 . 130/ 64 . . RECOVERY 04:00 0.0 0.0 68 . 130/ 64 . . RECOVERY 05:00 0.0 0.0 68 . 120/ 68 . . RECOVERY 06:00 0.0 0.0 65 . 120/ 68 . . RECOVERY 07:00 0.0 0.0 72 . 120/ 68 . . RECOVERY 08:00 0.0 0.0 71 . 118/ 67 . . RECOVERY 08:02 0.0 0.0 71 . 118/ 67 . . Electronically signed by : Brendon Galo MD 02/08/2021 18:53:03
--- NOTE | 2021-02-08 07:45 | CA_ITS ---
APPROVED REPORT Supervisor Stage Carpentry: Larisa Petty RVT Laterality: Bilateral Study Quality: Good Indications: syncope Risk Factors Hypertension: Hyperlipidemia Smoking Doppler Spectral Velocity Analysis ECA (R) 72.70/10.70 cm/s ECA (L) 52.40/9.60 cm/s dICA (R) 108.00/41.70 cm/s dICA (L) 116.60/48.10 cm/s Aaron (R) 78.10/33.10 cm/s Aaron (L) 114.40/47.00 cm/s pICA (R) 78.10/23.50 cm/s pICA (L) 93.00/35.30 cm/s dCCA (R) 68.40/22.50 cm/s dCCA (L) 69.50/23.50 cm/s pCCA (R) 80.20/18.20 cm/s pCCA (L) 78.10/22.50 cm/s Vert (R) 52.40/13.90 cm/s Vert (L) 43.70/12.90 cm/s ICA/CCA 1.58 ICA/CCA 1.68 Findings Study suggests less than 20% stenosis of the right internal cartoid artery. Study suggests less than 20% stenosis of the left internal cartoid artery. Antegrade flow seen bilateral vertebral arteries. Conclusion Study suggests less than 20% stenosis of the right internal cartoid artery. Study suggests less than 20% stenosis of the left internal cartoid artery. Antegrade flow seen bilateral vertebral arteries. Electronically signed by : Huan Conklin MD 02/08/2021 16:31:45
== END ==
PROVIDERS: PCP Internal Medicine Adolescent Medicine; Visit Provider Internal Medicine Cardiovascular Disease
DX: E78.2 Mixed hyperlipidemia (principal); I10 Essential (primary) hypertension; I25.10 Atherosclerotic heart disease of native coronary artery without angina pectoris; R55 Syncope and collapse
CPT/HCPCS: 93017; 93880

== ENCOUNTER → 2021-03-02 10:33 | Outpatient (CLI) | payer MEDICARE, OTHER, SELFPAY ==
--- NOTE | 2021-03-02 | CA_ITS ---
APPROVED REPORT Exam: Exercise Treadmill Technologist: Rhea Sanchez Ht: 5 ft 3 in Wt: 138 lbs BSA: 1.65 m2 HR: 52 bpm BP: 131/69 mmHg Indications: Abnormal GXT, Syncope Medical History Medications: Omeprazole,,,,, Alprazolam,,,,, Aspirin,,,,, Losartan,,,,, HCTZ,,,,, Lipitor,,,,, BisOPROLOL,,,,, Meclizine,,,,, Aldactone,,,,, Celecoxib,,,,, Zofran,,,,, Stress Test Details Test: Eugenio HR Resting HR: 61 bpm Max Heart Rate (APMHR): 155.040306 bpm Max HR Achieved: 137 bpm Target HR (85% APMHR): 131.776318 bpm % of APMHR: 88.39 Recovery HR: 67 bpm BP Resting BP: 131.0/69.0 mmHg Max BP: 170.0/88.0 mmHg Recovery BP: 138.0/64.0 mmHg ECG Resting ECG: Sinus bradycardia, otherwise normal. Clinical Exercise duration: 06:30 min Highest Stage Achieved: Exercise capacity: 7.0 METs Stress ECG Conclusion Patient exercised 6:30 on Eugenio Protocol. Test stopped due to shortness of air, fatigue. Symptoms: No chest pain. Arrhythmias/Ectopy: None ST-T Changes: 2mm of horizontal ST depression inferiorly and anterolaterally with ST elevation in aVR Conclusion: EKG changes positive for ischemia. Myoview images reported separately. Test Summary Stage 3 00:30 14.0 3.4 136 . . . . REST . . . . . . . Standing REST 04:28 0.0 0.0 61 . 131/ 69 . . Stage 1 01:00 10.0 1.7 89 . . . . Stage 1 02:00 10.0 1.7 101 . . . . Stage 1 03:00 10.0 1.7 108 . 148/ 80 . . Stage 2 01:00 12.0 2.5 112 . . . . Stage 2 02:00 12.0 2.5 122 . 164/ 84 . . Stage 2 . . . . . . . Myoview Injected Stage 2 03:00 12.0 2.5 129 . 164/ 84 . . Stage 3 00:30 14.0 3.4 136 . . . Stop exercise at 06:30 RECOVERY 01:00 0.0 0.0 109 . 170/ 88 . . RECOVERY 02:00 0.0 0.0 86 . 170/ 88 . . RECOVERY 03:00 0.0 0.0 73 . 156/ 76 . . RECOVERY 04:00 0.0 0.0 71 . 156/ 76 . . RECOVERY 05:00 0.0 0.0 67 . 150/ 62 . . RECOVERY 06:00 0.0 0.0 64 . 150/ 62 . . RECOVERY 07:00 0.0 0.0 67 . 150/ 62 . . RECOVERY 07:30 0.0 0.0 68 . 150/ 62 . . Electronically signed by : Brendon Galo MD 03/03/2021 11:06:53
--- NOTE | 2021-03-02 10:33 | NM_ITS ---
APPROVED REPORT Exam: Nuclear Stress Test Indication: SOB, Palpitations, Syncope, HTN, CAD, High cholesterol, Family history Patient Location: Outpatient Stress Tech: Rhea Sanchez NM Tech:Minna Damon, ARRT, RT (R)(N) Ht: 5 ft 3 in Wt: 135 lbs Bra Size: B HR: 52 bpm BP: 131/69 mmHg BSA: 1.64 m2 BMI: 23.9 History: SOB, Palpitations, Syncope, HTN, CAD, High cholesterol, Family history Procedure: Patient exercised on Eugenio protocol 6:30 minutes and sec, resting heart rate 52 bpm, resting blood pressure 131/69 mmHg, with exercise maximum heart rate achived was 137 bpm which is 88 % of the maximum predicted heart rate and blood pressure was 170/88 mmHg. Test was stopped due to SOA and fatigue. Patient denied any complaint of chest pain. Patient has Adequate exercise capacity, achieved 7.0 METs of workload on treadmill, the blood pressure response to exercise was Adequate. Electrocardiogram Resting electrocardiogram shows sinus rhythm, with exercise there is [address] segment depression noted from the baseline EKG. The EKG portion of the exercise Myoview is positive for ischemia. Cardiac Stress and Resting SPECT Images: Cardiac Stress and Resting SPECT images were obtained using technetium 99m Myoview 32.7 mCi stress and 10.47 mCi at rest. Gated SPECT for analysis of segmental wall motion and calculation of the ejection fraction also done. Prone images were also obtained. Cardiac stress and resting SPECT images show uniform myocardial activity without segmental perfusion abnormality, compared right ejection fraction is 54% with no regional wall motion abnormality, right ventricle is normal size and contractility. Conclusion: 1. The EKG portion of the exercise Myoview is positive for ischemia, patient has adequate exercise capacity of 7 mets of workload on treadmill, the blood pressure response to exercise was adequate, there was no exercise-induced chest discomfort. 2. No scintigraphic evidence of reversible ischemia seen, compared right ejection fraction is 54% with no regional wall motion abnormality, right ventricle is normal size and contractility. 3. Equivocal myocardial perfusion imaging with exercise. Electronically signed by : Brendon Galo MD 03/03/2021 11:15:58
--- NOTE | 2021-03-02 13:36 | HMH.ITSHM ---
Current Home Medications as stated by this patient Fany Alvarez or key account representative. []SPIRONOLACTONE ONDANSETRON OMEPRAZOLE MULTIVITAMIN MECLIZINE LOSARTAN VITAMIN D3 CELECOXIB BISOPROLOL ATORVASTATIN ASA ALPRAZOLAM
== END ==
PROVIDERS: PCP Internal Medicine Adolescent Medicine; Visit Provider Internal Medicine Cardiovascular Disease
DX: E78.2 Mixed hyperlipidemia (principal); I10 Essential (primary) hypertension; I25.10 Atherosclerotic heart disease of native coronary artery without angina pectoris; R55 Syncope and collapse
CPT/HCPCS: 78452; 93017; A9502

== ENCOUNTER → 2021-09-09 10:22 | Outpatient (CLI) | payer MEDICARE, OTHER, SELFPAY | PROVIDERS: PCP Internal Medicine Adolescent Medicine; Visit Provider Internal Medicine Cardiovascular Disease | DX: E78.2 Mixed hyperlipidemia (principal); I10 Essential (primary) hypertension; I25.10 Atherosclerotic heart disease of native coronary artery without angina pectoris; R00.2 Palpitations; R06.02 Shortness of breath | CPT/HCPCS: 93270 ==

== ENCOUNTER → 2021-09-20 10:25 | Outpatient (CLI) | payer MEDICARE, OTHER, SELFPAY ==
--- NOTE | 2021-09-20 10:25 | CA_ITS ---
APPROVED REPORT EXAM: Comprehensive 2D, Doppler, and color-flow Echocardiogram Bliss Press Operator: Aubree Dykes CRT Ht: 5 ft 3 in Wt: 134lbs BSA: 1.63 BP: 113/59 mmHg Indications: Shortness of Breath, Palpitations, CAD, Hyperlipidemia, Hypertension/HDD, stents, B/S ordered Echo Enhancing Agent Indication: Rule out Shunt Agent(s) / Amount(s) Used: Agitated Saline 15 cc Comments: B/S appears negative. 2D Dimensions LVOT 1.96 cm (M/F) 1.5-2.5 LA Volume 34.00 mL LA Volume Index 20.90 mL/m2 (M/F) 16-34 M-Mode Dimensions RVDd 2.46 cm (0.9-2.6) LA Diam 3.09 cm (1.9-4.0) LVDd 4.06 cm (3.5-5.7) Ao Diam 3.94 cm (2.0-3.7) LVDs 2.11 cm (3.5-5.7) IVSd 1.15 cm (0.6-1.1) PWd 0.61 cm (0.6-1.1) EF (Teich) 79.90% FS 48.00% EDV (Teich) 72.50 mL TAPSE 1.78 (<1.7) ESV (Teich) 14.60 mL LV Diastology E Decel Time 223.00 (160-240 msec) E/A Ratio 0.79 MED E' 12.40 (< 7 cm/sec) MED A' 14.10 cm/s E'/MED E' Ratio 4.25 (>14) LAT E' 11.00 (<10 cm/sec) LAT A' 12.60 cm/s E/LAT E' Ratio 4.79 (>14) Aortic Valve AO Peak GR. 5.90 mmHg Mitral Valve MV E Max Chai. 53.00 (40-130 cm/s) MV A Velocity 67.00 (40-130 cm/s) E/A Ratio 0.79 MV Decel. Time 223.00 (160-240 ms) MV PHT 65.00 ms Pulmonary Valve PV Peak Velocity 99.00 (50-150 cm/s) Tricuspid Valve TR P. Velocity 241.00 cm/s RAP Estimate 10.00 mmHg RVSP 33.20 mmHg Left Ventricle Left atrium is mildly enlarged, left ventricle is normal size, left ventricle wall thickness is upper limit of normal there is preserved left ventricular systolic function, Doppler evidence of impaired LV relaxation seen. Tissue Doppler is not indicated will raise left atrial pressure. Right Ventricle Right atrium and right ventricle are normal size and contractility. Atria Intra-atrial septum is intact, there is no flow across the interatrial septum, agitated saline contrast study did not identify intracardiac shunt. Mitral Valve Mitral valve grossly normal, there is trace mitral regurgitation. Tricuspid Valve Tricuspid grossly normal, there is trace tricuspid regurgitation. Pulmonic Valve Pulmonic valve is poorly visualized. Great Vessels Aortic root is normal size. Inferior vena cava is poorly visualized. Pericardium No significant pericardial effusion noted. Conclusion 1. Mildly dilated, normal left ventricular size, estimated ejection fraction 55% with no regional wall motion abnormality, Doppler evidence of impaired LV relaxation seen, tissue Doppler is not indicated will raise left atrial pressure. 2. Trace mitral and tricuspid regurgitation. 3. Agitated saline contrast study was negative for intracardiac shunt. 4. No significant pericardial effusion. 5. Inferior vena cava is poorly visualized. Electronically signed by : Brendon Galo MD 09/21/2021 06:01:17
== END ==
PROVIDERS: PCP Internal Medicine Adolescent Medicine; Visit Provider Internal Medicine Cardiovascular Disease
DX: E78.2 Mixed hyperlipidemia (principal); I10 Essential (primary) hypertension; I25.10 Atherosclerotic heart disease of native coronary artery without angina pectoris; R00.2 Palpitations; R06.02 Shortness of breath
CPT/HCPCS: 93306

== ENCOUNTER → 2021-10-28 14:05 | Outpatient (CLI) | payer MEDICARE, OTHER, SELFPAY ==
[2021-10-28 14:19] LABS: Basophils # 0.1 K/mm3 (0-0.2); Basophils % 1.5 % (0.1-2.0); Eosinophils # 0.1 K/mm3 (0.0-0.4); Hematocrit 35.9 % (37.0-47.0); Lymphocytes # 1.7 K/mm3 (0.7-4.5); Lymphocytes % 32.2 % (10-50); Mean Corpuscular HGB Conc 33.4 g/dL (31.8-35.4); Mean Corpuscular Hemoglobin 30.7 pg (27.0-31.2); Mean Corpuscular Volume 91.8 fl (81-99); Mean Platelet Volume 7.6 fl (7.4-10.4); Monocytes # 0.3 K/mm3 (0.1-1.0); Neutrophils # 3.2 K/mm3 (1.8-7.8); Neutrophils % 59.3 % (37.0-80.0); Platelet Count 296 K/mm3 (142-424); Red Blood Count 3.91 M/mm3 (4.20-5.40); Red Cell Distribution Width 13.8 % (11.5-17.5); White Blood Count 5.4 K/mm3 (4.8-10.8)
[2021-10-28 14:58] LABS: Free T4 (Free Thyroxine) 1.01 ng/dl (0.78-2.19)
[2021-10-28 17:35] LABS: Chloride 106 mmol/L (98-107); Potassium 4.3 mmoL/L (3.5-5.1); Sodium 138 mmol/L (136-145)
[2021-10-28 17:37] LABS: Blood Urea Nitrogen 12 mg/dl (7-17); Estimated Glomerular Filt Rate 100 ml/min (>60); GFR (African American) 121 ML/MIN (>60)
[2021-10-28 17:38] LABS: Alanine Aminotransferase 18 U/L (12-78); Albumin Level 4.3 g/dl (3.5-5.0); Alkaline Phosphatase 79 U/L (38-126); Anion Gap 11.3 mEq/L (5-15); Aspartate Amino Transferase 34 U/L (14-36); Bilirubin,Indirect 0.7 mg/dL (0.0-0.9); Bilirubin,Total 0.7 mg/dl (0.2-1.3); Bilirubin,Unconjugated 0.7 mg/dL (0.0-1.1); Calcium 9.3 mg/dl (8.4-10.2); Carbon Dioxide 25 mmol/L (22.0-30.0); Cholesterol 117 mg/dl (140-200); Glucose 98 mg/dl (74-100); Magnesium 1.9 mg/dl (1.6-2.3); Total Protein,Serum 6.8 g/dl (6.3-8.2); Triglycerides 81 mg/dl (30-150); VLDL Cholesterol 16 mg/dL (0-40)
[2021-10-28 17:39] LABS: Chol/HDL Ratio 3.3 (1-3.5); HDL Cholesterol 36 mg/dl (40-60)
[2021-10-28 17:50] LABS: Direct LDL Cholesterol 70.41 mg/dL (100-129)
[2021-10-28 18:09] LABS: Thyroid Stimulating Hormone 0.79 uIU/mL (0.465-4.68)
== END ==
PROVIDERS: Visit Provider Internal Medicine Cardiovascular Disease
DX: E78.2 Mixed hyperlipidemia (principal); I10 Essential (primary) hypertension; I25.10 Atherosclerotic heart disease of native coronary artery without angina pectoris
CPT/HCPCS: 36415; 80048; 80061; 80076; 83735; 84439; 84443; 85025

== ENCOUNTER → 2022-04-10 09:12 | Outpatient (CLI) | payer MEDICARE, OTHER, SELFPAY ==
--- NOTE | 2022-04-10 09:36 | MM_ITS ---
PROCEDURE INFORMATION: Exam: MG Bilateral Screening 3D Mammography Exam date and time: 04/10/2022 9:35 AM Age: 66 years old Clinical indication: Screening mammogram TECHNIQUE: Imaging protocol: Bilateral Screening tomosynthesis and 2D mammography including computer-aided detection (CAD) when performed. COMPARISON: 1. MG DMDXUR DIG MAMM-DX UNI-RT 05/19/2016 1:46 PM 2. MG DMSB DIG MAMM-SCREEN JOSUÉ 09/09/2015 2:13 PM 3. MG DMSB DIG MAMM-SCREEN JOSUÉ 06/11/2013 3:44 PM FINDINGS: MAMMOGRAPHY: Breast composition: There are scattered areas of fibroglandular density. Mass: None. Architectural distortion: No new or suspicious architectural distortion. Calcifications: No new or suspicious calcifications are present Asymmetric density: No new or suspicious asymmetric density is present Skin thickening: None. Axillary adenopathy: None. IMPRESSION: No mammographic evidence of malignancy. Recommend annual screening mammography unless otherwise clinically indicated. ASSESSMENT: BI-RADS category 1: Negative
--- NOTE | 2022-04-10 09:37 | XR_ITS ---
FINAL REPORT TECHNIQUE: Bone densitometry calculations of the lumbar spine and left hip were obtained. CLINICAL HISTORY: . post menopausal screening FINDINGS: DEXA BONE DENSITY AXIAL SKELETON Using L1-4, the bone mineral density of the spine is 0.740 g/cm2, corresponding to T-score of -2.8. Using the right hip, the bone mineral density of the femoral neck is 0.515 g/cm2, corresponding to a T-score of -3.0. NOTE: T-score: Standard deviation compared with peak bone mass of young adult mean. *Following the recommendations of the International Society of Bone Densitometry, classification of hip BMD is based on the lower of two T-scores; total hip or femoral neck. IMPRESSION: Osteoporosis: Lowest T-score is at or below -2.5. This patient's T-score meets the World Health Organization criteria for osteoporosis. Reviewed, Interpreted and Dictated by David Sykes MD Transcribed by Barb Emerson Authenticated and [facility]
== END ==
PROVIDERS: PCP Internal Medicine Adolescent Medicine; Visit Provider Internal Medicine Adolescent Medicine
DX: Z12.31 Encounter for screening mammogram for malignant neoplasm of breast (principal); Z78.0 Asymptomatic menopausal state
CPT/HCPCS: 77063; 77067; 77080

== ENCOUNTER 2022-06-15 11:18 | Day surgery (SDC) | payer MEDICARE, OTHER, SELFPAY ==
[2022-06-08 10:49] VITALS: BMI 25.9
[2022-06-15] VITALS (7 sets, daily range): BP systolic 75–113; BP diastolic 45–73; PULSE 60–88; RESP 16–18; TEMP 36.2–37.3; O2SAT 92–98
--- NOTE | 2022-06-15 12:24 | HMH.SCOPE ---
Procedure: Date: 06/15/22 Patient Date of :: 1955 Procedure Performed:: Screening colonoscopy Indications:: Screening for colorectal cancer Performing Provider:: Kristy Goldsmith MD Referring Provider:: Anny Galvan Sedation:: Propofol Procedure:: After placing the patient in the left lateral decubitus position, the colonoscopy was gently inserted into the rectum and under direct visualization advanced to the cecum which was identified by transillumination in the right lower quadrant, identification of the ileocecal valve, appendiceal orifice, and cecal strap. Color, texture, mucosa, and anatomy of the colon were carefully examined with the scope. Findings:: Anal canal: normal Rectum: normal Sigmoid colon: normal without polyps or inflammatory changes, scattered diverticulosis noted Descending colon: normal without polyps or inflammatory changes Splenic flexure: normal Transverse colon: normal without polyps or inflammatory changes Hepatic flexure: normal Ascending colon: normal without polyps or inflammatory changes Cecum: normal Terminal ileum: not visualized Impression: Sigmoid diverticulosis without diverticulitis Overall normal colonoscopy Specimens:: None Recommendations:: Follow up examination in about TEN years or so, sooner if clinically indicated. Complications:: None Estimated blood obtained (mL): 0
--- NOTE | 2022-06-15 12:29 | P.PN_ITS ---
[facility] Disclaimer: The information contained in this section may have been updated after the patient was seen, as this information can be updated by other users. Medical History CAD (coronary artery disease) Daytime somnolence Fatigue HLD (hyperlipidemia) HTN (hypertension) Palpitations SOB (shortness of breath) Surgical History History of cholecystectomy History of endometrial ablation History of heart artery stent Family History Other Family history of diabetes mellitus type I Family history of heart disease Family history of hyperlipidemia Family history of myocardial infarction Social History Smoking Status: Former smoker pack-years: 30 years smoked: 40 how long ago did patient quit smokin.5 years ago second hand exposure: No alcohol intake: never substance use type: denies use current occupational status: retired Travel in the last 8 weeks: None household members: none housing: house lives independently: Yes marital status: caffeine: Yes special lyndsey needs: No agree to transfusion: No do you feel safe at home: Yes victim of physical abuse: No victim of emotional abuse: No victim of sexual abuse: No would you like helpful sources: No [facility] Anesthesia Checklist Patient Identification Patient Identification: Verbal (Name & ) Structural Data Admitted From: Home Planned Operative Procedure/s: colonoscopy Consent for Planned Operative Procedure(s) Verified: Yes Additional verifications Anesthesia Reactions: No Hx Blood Transfusions: No Blood Transfusion Reaction: No Airway Assessment C-Spine Mobility Assessed: Yes TMJ Mobility Assessed: Yes Dentition: Poor Dentition Neurological Assessment Level of Consciousness: Awake, Alert and Appropriate Anesthesia Plan Anesthesia Risk discussed: Yes Anesthesia Plan: Verified ASA Class: III Anesthesia Type: MAC
== END 2022-06-15 13:07 | disposition home or self-care (01) ==
PROVIDERS: PCP Internal Medicine Adolescent Medicine; Visit Provider Internal Medicine Gastroenterology
PROC: 0DJD8ZZ Inspection of Lower Intestinal Tract, Via Natural or Artificial Opening Endoscopic (ICD-10-PCS; CPT 45378; principal; 2022-06-15 13:00)
DX: Z12.11 Encounter for screening for malignant neoplasm of colon (principal); Z79.899 Other long term (current) drug therapy
CPT/HCPCS: G0121

== ENCOUNTER → 2022-09-25 09:49 | Outpatient (CLI) | payer MEDICARE, OTHER, SELFPAY ==
--- NOTE | 2022-09-25 09:55 | MR_ITS ---
FINAL REPORT CLINICAL HISTORY: PERIPHERAL POLYNEUROPATHY. left sided weakness. history migraine headaches. FINDINGS: Multiplanar MR imaging of the brain was performed without and with contrast. There are multiple foci of increased T2 signal in the cerebral white matter. There is no evidence of intracranial hemorrhage or mass. No abnormal extra-axial fluid collection is seen. The ventricular size is within normal limits. There is no evidence of shift of the midline structures. There is a Chiari 1 malformation. No area of abnormal restricted diffusion is identified. No abnormal contrast enhancement is seen. Normal major vessel vascular flow voids are noted. IMPRESSION: Multiple foci of increased T2 signal in the cerebral white matter may represent moderate chronic ischemic/gliotic change, changes of vasculitis or less likely demyelination. Chiari 1 malformation. No acute intracranial abnormality. Reviewed, Interpreted and Dictated by Jurgen Capellan III, MD Transcribed by Martell Valera Authenticated and [facility]
== END ==
PROVIDERS: PCP Internal Medicine Adolescent Medicine; Visit Provider Internal Medicine Adolescent Medicine
DX: G81.94 Hemiplegia, unspecified affecting left nondominant side (principal); G62.9 Polyneuropathy, unspecified
CPT/HCPCS: 70553; A9576

== ENCOUNTER 2023-07-17 15:16 | Outpatient (CLI) | payer MEDICARE, OTHER, SELFPAY | END 2023-07-17 23:59 | LOC: RT 15:17 | PROVIDERS: PCP Internal Medicine Adolescent Medicine; Visit Provider Internal Medicine | DX: E78.5 Hyperlipidemia, unspecified (principal); I10 Essential (primary) hypertension; I25.10 Atherosclerotic heart disease of native coronary artery without angina pectoris; R00.2 Palpitations | CPT/HCPCS: 93225 ==

== ENCOUNTER 2023-07-19 15:28 | Outpatient (CLI) | payer MEDICARE, OTHER, SELFPAY | END 2023-07-19 23:59 | LOC: RT 15:29 | PROVIDERS: PCP Internal Medicine Adolescent Medicine; Visit Provider Internal Medicine | DX: R00.2 Palpitations (principal); I25.10 Atherosclerotic heart disease of native coronary artery without angina pectoris; I10 Essential (primary) hypertension; E78.5 Hyperlipidemia, unspecified | CPT/HCPCS: 93270 ==

== ENCOUNTER 2023-08-01 10:34 | Outpatient (CLI) | payer MEDICARE, OTHER, SELFPAY ==
--- NOTE | 2023-08-01 10:34 | CA_ITS ---
APPROVED REPORT EXAM: Comprehensive 2D, Doppler, and color-flow Echocardiogram Grooving Machine Operator: Larisa Petty RVT Ht: 5 ft 1 in Wt: 128lbs BSA: 1.56 BP: 117/60 mmHg Indications: PALPITATIONS,SOA,CAD,HTN,HLD 2D Dimensions LA Volume 31.50 mL LA Volume Index 20.19 mL/m2 (M/F) 16-34 M-Mode Dimensions RVDd 2.81 cm (0.9-2.6) LA Diam 3.09 cm (1.9-4.0) LVDd 3.74 cm (3.5-5.7) LVDs 2.41 cm (3.5-5.7) IVSd 0.97 cm (0.6-1.1) PWd 0.33 cm (0.6-1.1) EF (Teich) 65.80% FS 35.60% EDV (Teich) 59.60 mL TAPSE 1.72 (<1.7) ESV (Teich) 20.40 mL LV Diastology E Decel Time 150 (160-240 msec) E/A Ratio 0.8 Aortic Valve MEG Index 1.11 cm2/m2 AoV Peak Chai. 123.0 (50-130 cm/s) AO Peak GR. 6.00 mmHg AO Mean GR. 3.30 (<5 mmHg) AO VTI 29.4 (18-25 cm) MEG (VTI) 1.77 (2.5-4.5 cm2) Mitral Valve MV E Max Chai. 60.0 (40-130 cm/s) MV A Velocity 74.0 (40-130 cm/s) E/A Ratio 0.81 MV PHT 44.0 ms Pulmonary Valve PV Peak Velocity 56.0 (50-150 cm/s) Tricuspid Valve TR P. Velocity 250.00 cm/s RAP Estimate 10.00 mmHg RVSP 34.90 mmHg Left Ventricle The left ventricle is normal size. The left ventricular systolic function is normal. The left ventricular ejection fraction is within the normal range. There is normal left ventricular wall thickness. There is normal LV segmental wall motion. The left ventricular diastolic function is normal. LVEF is 55%. Right Ventricle The right ventricle is normal size. The right ventricular systolic function is normal. Atria The left atrium size is normal. The right atrium size is normal. There is no Doppler evidence of interatrial shunt. Aortic Valve The aortic valve opens well. There is no aortic valvular stenosis. No aortic regurgitation is present. Mitral Valve The mitral valve is normal in structure. No evidence of mitral valve stenosis. Trace mitral valve regurgitation. Tricuspid Valve The tricuspid valve leaflets are thin and pliable. Mild tricuspid regurgitation. RVSP is 20-25 mmHg. Pulmonic Valve The pulmonary valve is normal in structure. Trace pulmonic regurgitation. Great Vessels The aortic root is normal in size. The ascending aorta is normal in size. The IVC is dilated, but collapses > 50% with respirophasic variation. The RA pressure is estimated at 8 mmHg. Pericardium There is no pericardial effusion. Other Information Study Quality: Fair Conclusion Normal biventricular systolic function. Mild TR. Electronically signed by : Dulce Maria Rosado MD 08/04/2023 17:15:48
== END 2023-08-01 23:59 ==
LOC: RT 10:34
PROVIDERS: PCP Internal Medicine Adolescent Medicine; Visit Provider Internal Medicine
DX: E78.5 Hyperlipidemia, unspecified (principal); I10 Essential (primary) hypertension; I25.10 Atherosclerotic heart disease of native coronary artery without angina pectoris; R00.2 Palpitations
CPT/HCPCS: 93306

== ENCOUNTER 2024-07-30 07:08 | Outpatient (CLI) | payer MEDICARE, SELFPAY ==
--- NOTE | 2024-07-30 07:10 | CT_ITS ---
FINAL REPORT TECHNIQUE: Axial images were obtained from the lung apex to the mid abdomen by computed tomography. This study was performed with techniques to keep radiation doses as low as reasonably achievable (ALARA). Individualized dose reduction techniques using automated exposure control or adjustment of mA and/or kV according to the patient's size were employed. CLINICAL HISTORY: former smoker, quit 4 years ago. smoked 1 ppd x 30 years FINDINGS: CHEST CT LOW DOSE CTDI vol (mGy): 2.90 DLP (mGy-cm): 106.81 There is no axillary adenopathy. There is no hilar or mediastinal adenopathy. The heart is normal in size. There is no pericardial or pleural effusion. Lung window images demonstrate a 4 mm left lower lobe nodule on image 57 of series 3, granuloma is favored given the presence of other calcified nodules. Limited images of the upper abdomen are unremarkable. IMPRESSION: Left lower lobe nodule measures 4 mm, favor granuloma. Lung RADS category 2. Recommend 12 month follow-up low-dose chest CT. Reviewed, Interpreted and Dictated by Guillermo Harrington MD Transcribed by Aracelis Hardin Authenticated and . [facility]
--- NOTE | 2024-07-30 07:11 | MM_ITS ---
PROCEDURE INFORMATION: Exam: MG Bilateral Screening 3D Mammography Exam date and time: 07/30/2024 7:49 AM Age: 68 years old Clinical indication: Screening examination TECHNIQUE: Imaging protocol: Bilateral Screening tomosynthesis and 2D mammography including computer-aided detection (CAD) when performed. COMPARISON: 1. MG MM DIG SCREENING MAMM BI W/CAD 04/10/2022 9:35 AM 2. MG MM DIG SCREENING MAMM BI W/CAD 08/30/2020 3:42 PM FINDINGS: MAMMOGRAPHY: Breast composition: There are scattered areas of fibroglandular density. Mass: None. Architectural distortion: None. Calcifications: No suspicious calcifications. Asymmetric density: None. Skin thickening: None. Axillary adenopathy: None. IMPRESSION: No mammographic evidence of malignancy. Annual screening is recommended unless otherwise clinically indicated. ASSESSMENT: BI-RADS Category 1: Negative.
--- NOTE | 2024-07-30 07:11 | XR_ITS ---
FINAL REPORT TECHNIQUE: Bone densitometry calculations of the lumbar spine and left hip were obtained. CLINICAL HISTORY: SCREENING COMPARISON: 04/10/2022 FINDINGS: Using L1-4, the bone mineral density of the spine is 0.771 g/cm2, corresponding to T-score of -2.5. Using the left hip, the bone mineral density of the femoral neck is 0.471 g/cm2, corresponding to a T-score of -3.4. Using the right hip, the bone mineral density of the femoral neck is 0.443 g/cm?, corresponding to a T-score of -3.7. NOTE: T-score: Standard deviation compared with peak bone mass of young adult mean. *Following the recommendations of the International Society of Bone Densitometry, classification of hip BMD is based on the lower of two T-scores; total hip or femoral neck. IMPRESSION: Osteoporosis: Lowest T-score is at or below -2.5. This patient's T-score meets the World Health Organization criteria for osteoporosis. Reviewed, Interpreted and Dictated by Guillermo Harrington MD Transcribed by Alaina Hardy Authenticated and [facility]
== END 2024-07-30 23:59 | disposition home or self-care (01) ==
LOC: RAD 07:09
PROVIDERS: PCP Internal Medicine Adolescent Medicine; Visit Provider Nurse Practitioner Family
DX: M81.0 Age-related osteoporosis without current pathological fracture (principal); Z12.31 Encounter for screening mammogram for malignant neoplasm of breast; Z87.891 Personal history of nicotine dependence
CPT/HCPCS: 71271; 77063; 77067; 77080

== ENCOUNTER 2025-04-11 13:35 | Emergency (ER) | payer MEDICARE, SELFPAY ==
--- OUTSIDE RECORDS SUMMARY | 2024-09-06 16:30 | XMS_ITS ---
Author Organization [facility] Address [address] [facility] [address] [place] [address] Care Team Providers Care Employment Case Manager Name Role Phone Rizwan Yen Primary Care Provider Migration, Provider Unavailable Unavailable Allergies Allergen (clinical drug ingredient) Drug/Non Drug Allergy documented on EMR Reaction Allergy Type Onset Date Status XYLOCAINE HCL (uncoded) Unknown Allergy Active lidocaine Lidocaine hives Drug Allergy Active Aleve palpitations/sai vated B/P Drug Allergy Active codeine Codeine rash Drug Allergy Active [facility] Conversion Encounter Medications Medication SIG (Take, Route, Frequency, Duration) Notes Start Date End Date Status Atorvastatin Calcium 80 MG 1 tab(s) orally once a day; Duration: 30 day(s) Active Aspirin BUFFERED 81 MG 81 MG ORALLY ONCE A DAY; Duration: 90 DAYS *Please review and pick correct strength-formulat ion from Perfectore options. If intended option is not shown, discontinue and re-order from Quick Search* Active Tylenol PM Extra Strength 325 MG 1 TAB ORALLY QHS PRN *Please review and pick correct strength-formulat ion from Perfectore options. If intended option is not shown, discontinue and re-order from Quick Search* Active Bisoprolol Fumarate 5 MG 1.2 tab orally at bedtime; Duration: 30 days Active Losartan Potassium 25 MG 1 tab(s) orally once a day Active Prolia 60 MG/ML 60mg subcutaneously every 6 months; Duration: 1 days DX: M81.0 08/04/2024 Active Lexapro 20 MG 1 tab(s) orally once a day; Duration: 90 days Active Xanax 0.5 MG 1 tab(s) orally 2 times a day; Duration: 30 days 06/26/2024 Active Celecoxib 200 MG 1 cap(s) orally once a day; Duration: 90 days Active Omeprazole 20 MG 1 cap(s) orally once a day; Duration: 90 Active Spironolactone 25 MG 1 tab(s) orally onc e a day Active Centrum Silver - 1 tab(s) orally once a day; Duration: 30 day(s) Active Meclizine HCl 25 MG 1 tab(s) orally 3 times a day; Duration: 7 days 04/10/2023 Active Encounters Encounter Location Date Provider Diagnosis [facility] [address] [facility] [address] [place] [address] 09/06/2024 Provider Migration Plan Of Treatment Next Appt Details Provider Name:Rizwan Yen, 05/05/2025 10:00:00 AM, [address] [place] [address], [phone], Progress Notes * Laura ALVAREZaDOB: 6 (69 yo F)Acc No.[id number]:09/06/2024 Patient: Fany FLEMING Provider: Vinay ponce Migration :1955 A ge:68 Y S ex:Female Date:09/06/2024 Address:[address] [place] [address], [id number] Pcp:Rizwan Yen Subjective: * Chief Complaints: * 1 . Multum To Medispan Conversion Encounter. * Medical History: * Medications: T aking Losartan Potassium 25 MG Tablet 1 tab(s) orally once a day , Taking Bisoprolol Fumarate 5 MG Tablet 1.2 tab orally at bedtime , Taking Tylenol PM Extra Strength 325 MG TABLET 1 TAB ORALLY QHS PRN , Notes to Pharmacist: *Please review and pick correct strength-formulation from Medispan options. If intended option is not shown, discontinue and re-order from Quick Search*, Taking Aspirin BUFFERED 81 MG TABLET 81 MG ORALLY ONCE A DAY , Notes to Pharmacist: *Please review and pick correct strength-formulation from Medispan options. If intended option is not shown, discontinue and re-order from Quick Search*, Taking Atorvastatin Calcium 80 MG Tablet 1 tab(s) orally once a day , Taking Centrum Silver - Tablet 1 tab(s) orally once a day , Taking Spironolactone 25 MG Tablet 1 tab(s) orally once a day , Taking Meclizine HCl 25 MG Tablet 1 tab(s) orally 3 times a day , Taking Omeprazole 20 MG Capsule Delayed Release 1 cap(s) orally once a day , Taking Celecoxib 200 MG Capsule 1 cap(s) orally once a day , Taking Xanax 0.5 MG Tablet 1 tab(s) orally 2 times a day , Taking Lexapro 20 MG Tablet 1 tab(s) orally once a day , Taking Prolia 60 MG/ML Solution Prefilled Syringe 60mg subcutaneously every 6 months , Notes to Pharmacist: DX: M81.0 * Allergies: L idocaine: hives, Codeine: rash, XYLOCAINE HCL, Aleve: palpitations/elevated B/P. Objective: * Vitals: Assessment: Plan: * Treatment: * * Electronic signature of Prov ider Migration on 04/11/2025 at 01:52 PM EST Sign off status: Pending * Provider: Vinay ponce Migration Date: 0 09/06/2024 Generated for Tory galicia/Rakesh/Emanuel on: 06/11/2024 01:52 PM EST
--- OUTSIDE RECORDS SUMMARY | 2024-10-30 06:15 | XMS_ITS ---
Author Organization [facility] Address [address] [place] [address] Care Team Providers Care [place] Attendant Name Role Phone Rizwan Yen Primary Care Provider [phone] REASON FOR VISIT med ck Encounters Encounter Location Date Provider Diagnosis [address] [phone] 10/30/2024 Rizwan Yen Plan Of Treatment Next Appt Details Provider Name:Rizwan Yen, 05/05/2025 10:00:00 AM, [address] [place] [address], [phone], Progress Notes * ALVAREZLauraBriandaB: (69 yo F)Acc No.[id number]:10/30/2024 Progress Notes Patient: Fany FLEMING Provider: Laquita Yen MD :1955 A ge:69 Y S ex:Female Date:10/30/2024 Address:[address] [place], [place] [phone] Subjective: * Chief Complaints: * 1 . Med ck. * Medical History: Objective: * Vitals: Assessment: Plan: * Treatment: * * Electronic signature of Renato Yen MD FAAP on 04/11/2025 at 01:53 PM EST Sign off status: Pending * Provider: Laquita Yen MD Date: 0 10/30/2024 Generated for Tory galicia/Rakesh/Emanuel on: 1 06/11/2024 01:53 PM EST
[2025-04-11] VITALS (10 sets, daily range): BP systolic 115–145; BP diastolic 66–96; PULSE 52–74; RESP 16; TEMP 36.6; O2SAT 96–100; BMI 24.9
--- OUTSIDE RECORDS SUMMARY | 2025-04-11 13:52 | XMS_ITS ---
Author Organization [facility] Address [address] [place] [phone] Phone Care Team Providers Care Lobby Porter Name Role Phone Juliano PABLO, Jurgen Fletcher [phone] Problems Includes: Active, inactive, and resolved Problems All Visits Onset Date Resolved Date Provider Condition S tatus Joint Pain Right Knee 09/21/2023 Rubi Thompson PA-C Active Last Documented On 4 9:39AM ; [facility] Plan of Treatment No Plan of Treatment Recorded Assessments Includes: Assessments for all patient encounters No Assessments Recorded Medical Equipment - Implanted Devices Includes: Current and historical Devices No Medical Equipment Recorded Medications Includes: Current and historical Medications No Medications Taken Medications Administered Includes: Administered Medications in patient's chart No Administered Medications Recorded Results Includes: Results from 04/11/2024 through 04/11/2025 No Results Recorded For Specified Dates History of Present Illness History of Present Illness not supported for this document type No History of Present Illness Recorded Social History Description Last Updated No caffeine use 11/23/2023 Last Documented On 4 11:43AM ; [facility], [facility] No recent change in diet 11/23/2023 Last Documented On 4 11:43AM ; [facility] Not a current smoker. 11/23/2023 Last Documented On 4 11:43AM ; [facility], [facility] Not exercising regularly 11/23/2023 Last Documented On 4 11:43AM ; [facility] Not using alcohol 11/23/2023 Last Documented On 4 11:43AM ; [facility], [facility] Not using drugs 11/23/2023 Last Documented On 4 11:43AM ; [facility], [facility] Tobacco non-user 11/23/2023 Last Documented On 4 11:43AM ; [facility], [facility] Smoking Status Unknown Medical History Includes: Medical History in patient's chart Description Last Updated Past medical and surgical history non-co ntributory 11/23/2023 Last Documented On 4 11:43AM ; [facility], [facility] Family History Includes: Family History in patient's chart Description Last Updated No significant family history 11/23/2023 Last Documented On 4 11:43AM ; [facility] Review of Systems Review of Systems not supported for this document type No Review of Systems Recorded Mental Status Description No anxiety Functional Status No Functional Status Recorded Physical Exam Physical Exam not supported for this document type No Physical Exam Recorded Allergies Includes: Active, inactive, and resolved Allergies No Known Allergies Insurance Includes: Active Insurance Policies Plan Name Member ID Group # Subscriber Relationship Effect hellen Dates 1 [id number] Fany Alvarez Self Clinical Notes Includes: Signed Clinical Notes starting from 05/18/2022 No Clinical Notes Recorded
--- OUTSIDE RECORDS SUMMARY | 2025-04-11 13:53 | XMS_ITS ---
Care [facility] - [facility] Created on: April 11, 2025 Fany Alvarez : 1955 Sex: Female Author Organization [facility] Address [address] [place] [phone] Phone Care Team Providers Care Office Systems Technology Instructor Name Role Phone Juliano PABLO, Jurgen [facility] [phone]
--- OUTSIDE RECORDS SUMMARY | 2025-04-11 13:53 | XMS_ITS | Clinical Summary ---
Author Organization [facility] , [facility] Address [address] [place] [address] Phone Care Team Providers Care Vice President Of Manufacturing Name Role Phone Juliano PABLO, Jurgen Justine [phone] Reason for Visit and Chief Complaint The Chief Complaint is: right knee pain Problems Includes: Problems addressed during this encounter and other active Problems All Visits Onset Date Resolved Date Provider Condition S tatus Joint Pain Right Knee 09/21/2023 Rubi Thompson PA-C Active Last Documented On 9:39AM ; [facility], [facility] Plan of Treatment Fall Risk Assessment: This patient has been identified as a fall risk. Balance/gait along with postural blood pressure, vision and home fall hazards have been assessed. Medications have been reviewed, and recommendations made with regard to contributing factors for future falls. Plan of care: Consideration of vitamin D supplementation along with balance and strength training with consideration for formal physical therapy has been discussed with the patient. - Last Documented On 09/28/2023 11:26AM ; [facility], [facility] Assessments Includes: Assessments from this encounter Findings 67-year-old female presents after suffering an injury to her right knee 11 days ago. Patient states she was walking on her treadmill when she turned and fell onto the lateral aspect of the right knee. She was initially evaluated at a local emergency room in which radiographs were interpreted as no acute findings. She did have continued pain with weight-bearing and presented to her primary care provider. She presents today with an MRI for further evaluation. She complains of pain primarily throughout the medial aspect of the knee with mild pain laterally. She states it is worse with range of motion and weight-bearing activity. She has been weight- bearing with a cane and notes severe pain. She has been taking anti-inflammatories with minimal pain relief - Last Documented On 09/28/2023 11:26AM ; [facility], [facility] 09/28/23- Follow up right tibial plateau fracture. Overall patient is doing fairly well. She does have pain laterally with weight-bearing. She has maintained range of motion, but does wear her brace for ambulation. No complaints today. - Last Documented On 09/28/2023 11:26AM ; [facility] Physical exam: - Last Documented On 09/28/2023 11:26AM ; [facility] Constitutional: Well-developed, well-groomed, well-nourished patient in no acute distress who appears stated age height and weight - Last Documented On 09/28/2023 11:26AM ; [facility], [facility] Psychiatric: Patient is alert and oriented to person place date and situation. Mood and affect are normal for current situation. - Last Documented On 09/28/2023 11:26AM ; [facility], [facility] Neurological: Sensation normal bilateral upper and lower extremities. - Last Documented On 09/28/2023 11:26AM ; [facility] Skin: No lesions noted on upper or lower extremities. Skin is dry warm and with normal turgor. - Last Documented On 09/28/2023 11:26AM ; [facility], [facility] Vascular: No swelling in upper or lower extremities. Dorsalis pedis pulses normal in lower extremities. - Last Documented On 09/28/2023 11:26AM ; [facility] Gait and Station: Partial weightbearing on the right with a walker - Last Documented On 09/28/2023 11:26AM ; [facility], [facility] Left knee: No obvious deformity. No discoloration. No atrophy. No tenderness to palpation. No crepitus. No effusion. Active range of motion: Extension 0?, flexion 135?. Passive range of motion: Not limited. Strength: 5 out of 5 quadriceps, 5 out of 5 hamstrings. Negative Isrrael's, negative anterior drawer. Negative posterior drawer. Negative valgus instability. Negative varus instability. Negative medial Viviane's. Negative lateral Viviane's. Normal patella mobility. Negative patella apprehension. - Last Documented On 09/28/2023 11:26AM ; [facility] Right knee: Tender medial and lateral joint lines. Moderate effusion. Active range of motion: Extension 2?, flexion 120?. Passive range of motion: Not limited. Strength: 4 out of 5 quadriceps, 4 out of 5 hamstrings. Normal patella mobility. Negative patella apprehension. - Last Documented On 09/28/2023 11:26AM ; [facility], [facility] Left and Right Hips: Full active ROM. No tenderness to palpation. - Last Documented On 09/28/2023 11:26AM ; [facility], [facility] Left and Right Feet: No pes planus. No ankle valgus. - Last Documented On 09/28/2023 11:26AM ; [facility], [facility] Assessment/ Plan: - Last Documented On 09/28/2023 11:26AM ; [facility] Right knee lateral tibial plateau fracture - Last Documented On 09/28/2023 11:26AM ; [facility], [facility] Physical exam and radiograph findings were discussed with the patient. At this time we noted radiographs appear stable compared to previous images. We will continue with conservative management. She was instructed to toe-touch weightbear with a walker for assistance. She must wear the brace at all times when she is ambulating. She may take the brace off at home to work on gentle range of motion. Continue ice and anti-inflammatories. Follow up in 4 weeks with x-rays on arrival. - Last Documented On 09/28/2023 11:26AM ; [facility] Medical Equipment - Implanted Devices Includes: Current Devices No Medical Equipment Recorded Medications Includes: Medications discussed during this encounter and other current Medications No Medications Taken Medications Administered Includes: Administered Medications from this encounter No Administered Medications Recorded Vital Signs Includes: Vital Signs from this encounter Vital Name 09/28/2023 10:37A Height (in) 61 Weight (lb) 127 Body Mass Index 24 Body Surface Area 1.6 Note: cl Last Documented: On 09/28/2023 10:37A M ; [facility], [facility] Results Includes: Results discussed during this encounter No Results Recorded For Specified Dates History of Present Illness Includes: History of Present Illness from this encounter ARUN Alvarez is a 67 year old female. - Allergy list reviewed - Problem list reviewed - Medication list reviewed - Previous history of new onset pain Injury is not work related or an automotive accident - No previous treatment. Social History Description Last Updated No caffeine use 09/28/2023 Last Documented On 4 11:26AM ; [facility] No recent change in diet 09/28/2023 Last Documented On 4 11:26AM ; [facility] Not a current smoker. 09/28/2023 Last Documented On 4 11:26AM ; [facility] Not exercising regularly 09/28/2023 Last Documented On 4 11:26AM ; [facility] Not using alcohol 09/28/2023 Last Documented On 4 11:26AM ; [facility] Not using drugs 09/28/2023 Last Documented On 4 11:26AM ; [facility] Tobacco non-user 09/28/2023 Last Documented On 4 11:26AM ; [facility] Smoking Status Unknown Procedures and Surgical History Includes: Procedures from this encounter Procedures Code Diagnosis Performing Provider Service L ocation Service Date use of tobacco assessment performed 1000F Last Documented On 4 10:37AM ; [facility] patient screened for future fall risk: documentation of any fall with injury in past year 1100F Last Documented On 4 10:37AM ; [facility] review of medications documented 1160F Last Documented On 4 10:37AM ; [facility] an X-ray was performed 42647 Last Documented On 4 10:37AM ; [facility] Medical History Includes: Medical History addressed during this encounter Description Last Updated Past medical and surgical history non-co ntributory 09/28/2023 Last Documented On 4 11:26AM ; [facility] Family History Includes: Family History addressed during this encounter Description Last Updated No significant family history 09/28/2023 Last Documented On 4 11:26AM ; [facility] Review of Systems Includes: Review of Systems from this encounter Systemic: Not feeling tired, no recent weight loss, and no recent weight gain. Head: No headache and no sinus pain. Eyes: No vision problems, no Cataracts, no Glasses/Contacts, and no Glaucoma. Otolaryngeal: No hearing loss and no tinnitus. Cardiovascular: No chest pain or discomfort, no palpitations, no Hypertension, and no High Cholesterol. Pulmonary: No daytime asthma symptoms and no chronic cough. No wheezing. Gastrointestinal: No heartburn and no abdominal pain. No Indigestion, no Acid Reflux, no Peptic Ulcer, no GI Stomach Bleed, and no Ulcers. Endocrine: No hot flashes, no muscle weakness, no Diabetes, no Hypothyroid, and no Hyperthyroid. Hematologic: No easy bleeding, no tendency for easy bruising, and no Anemia. Musculoskeletal: No Arthritis and no lower back pain. No soft tissue swelling and no localized joint pain. Neurological: No dizziness, no convulsions, and no numbness. Psychological: No anxiety, no emotional lability, no depression, and no insomnia. Not crying for no reason. Skin: No dry skin. No Ulcers, no Scars, and no rash. Allergic and Immunologic: No complaint of seasonal allergic reaction. Mental Status Includes: Mental Status from this encounter Description No anxiety Functional Status Includes: Functional Status from this encounter No Functional Status Recorded Physical Exam Includes: Physical Exam from this encounter Allergies Includes: Active Allergies No Known Allergies Encounters Encounter Provider Location Date Check-In Time Check- Out Time Diagnosis Follow Up Rubi Goodwin PA-C [facility] 4 10:30AM 11:10AM Insurance Includes: Active Insurance Policies Plan Name Member ID Group # Subscriber Relationship Effect hellen Dates - [employer] [id number] Fany Alvarez Self Clinical Notes Includes: Clinical Notes from this encounter * Progress note Date Encounter Last Documented by 09/28/2023 Follow Up Last documented on 09/28/2023; 11:26 AM, Rubi Goodwin PA-C; [facility], [facility] Active Problems & Conditions - Joint Pain in the Right Knee Chief Complaint The Chief Complaint is: Right knee pain. Referred Here Referred by. History of Present Illness Fany Alvarez is a 67 year old female. - Allergy list reviewed - Problem list reviewed - Medication list reviewed - Previous history of new onset pain Injury is not work related or an automotive accident - No previous treatment. Current Medication - None Past Medical/Surgical History Past medical and surgical history non-contributory. Social History Not a current smoker. Current diet: No recent change in diet. Caffeine use: No caffeine use. Tobacco use: Tobacco non-user. Alcohol: Not using alcohol. Drug Use: Not using drugs. Habits: Not exercising regularly. Allergies - No Known Allergies Family History No significant family history Review Of Systems Systemic: Not feeling tired, no recent weight loss, and no recent weight gain. Head: No headache and no sinus pain. Eyes: No vision problems, no Cataracts, no Glasses/Contacts, and no Glaucoma. Otolaryngeal: No hearing loss and no tinnitus. Cardiovascular: No chest pain or discomfort, no palpitations, no Hypertension, and no High Cholesterol. Pulmonary: No daytime asthma symptoms and no chronic cough. No wheezing. Gastrointestinal: No heartburn and no abdominal pain. No Indigestion, no Acid Reflux, no Peptic Ulcer, no GI Stomach Bleed, and no Ulcers. Endocrine: No hot flashes, no muscle weakness, no Diabetes, no Hypothyroid, and no Hyperthyroid. Hematologic: No easy bleeding, no tendency for easy bruising, and no Anemia. Musculoskeletal: No Arthritis and no lower back pain. No soft tissue swelling and no localized joint pain. Neurological: No dizziness, no convulsions, and no numbness. Psychological: No anxiety, no emotional lability, no depression, and no insomnia. Not crying for no reason. Skin: No dry skin. No Ulcers, no Scars, and no rash. Allergic and Immunologic: No complaint of seasonal allergic reaction. Physical Findings - Vitals taken 09/28/2023 10:37 am cl Height 61 in Weight 127 lbs Body Mass Index 24 kg/m2 Body Surface Area 1.6 m2 Tests Two-view radiographs right knee ordered and reviewed by me reveal fracture of the lateral tibial plateau with mild depression, stable from previous radiographs, moderate to severe degenerative changes in the medial compartment Assessment 67-year-old female presents after suffering an injury to her right knee 11 days ago. Patient states she was walking on her treadmill when she turned and fell onto the lateral aspect of the right knee. She was initially evaluated at a local emergency room in which radiographs were interpreted as no acute findings. She did have continued pain with weight-bearing and presented to her primary care provider. She presents today with an MRI for further evaluation. She complains of pain primarily throughout the medial aspect of the knee with mild pain laterally. She states it is worse with range of motion and weight-bearing activity. She has been weight- bearing with a cane and notes severe pain. She has been taking anti-inflammatories with minimal pain relief 09/28/23- Follow up right tibial plateau fracture. Overall patient is doing fairly well. She does have pain laterally with weight-bearing. She has maintained range of motion, but does wear her brace for ambulation. No complaints today. Physical exam: Constitutional: Well-developed, well-groomed, well-nourished patient in no acute distress who appears stated age height and weight Psychiatric: Patient is alert and oriented to person place date and situation. Mood and affect are normal for current situation. Neurological: Sensation normal bilateral upper and lower extremities. Skin: No lesions noted on upper or lower extremities. Skin is dry warm and with normal turgor. Vascular: No swelling in upper or lower extremities. Dorsalis pedis pulses normal in lower extremities. Gait and Station: Partial weightbearing on the right with a walker Left knee: No obvious deformity. No discoloration. No atrophy. No tenderness to palpation. No crepitus. No effusion. Active range of motion: Extension 0-, flexion 135-. Passive range of motion: Not limited. Strength: 5 out of 5 quadriceps, 5 out of 5 hamstrings. Negative Isrrael's, negative anterior drawer. Negative posterior drawer. Negative valgus instability. Negative varus instability. Negative medial Viviane's. Negative lateral Viviane's. Normal patella mobility. Negative patella apprehension. Right knee: Tender medial and lateral joint lines. Moderate effusion. Active range of motion: Extension 2-, flexion 120-. Passive range of motion: Not limited. Strength: 4 out of 5 quadriceps, 4 out of 5 hamstrings. Normal patella mobility. Negative patella apprehension. Left and Right Hips: Full active ROM. No tenderness to palpation. Left and Right Feet: No pes planus. No ankle valgus. Assessment/ Plan: Right knee lateral tibial plateau fracture Physical exam and radiograph findings were discussed with the patient. At this time we noted radiographs appear stable compared to previous images. We will continue with conservative management. She was instructed to toe-touch weightbear with a walker for assistance. She must wear the brace at all times when she is ambulating. She may take the brace off at home to work on gentle range of motion. Continue ice and anti-inflammatories. Follow up in 4 weeks with x-rays on arrival. Previous Tests Imaging: X-Ray: An X-ray was performed. Plan Fall Risk Assessment: This patient has been identified as a fall risk. Balance/gait along with postural blood pressure, vision and home fall hazards have been assessed. Medications have been reviewed, and recommendations made with regard to contributing factors for future falls. Plan of care: Consideration of vitamin D supplementation along with balance and strength training with consideration for formal physical therapy has been discussed with the patient. Notes This dictation was done with voice recognition software and may contain errors and omissions. Practice Management Use of tobacco assessment performed and patient screened for future fall risk documentation of any fall with injury in past year Review of medications documented.
--- OUTSIDE RECORDS SUMMARY | 2025-04-11 13:53 | XMS_ITS | Clinical Summary ---
Author Organization [facility] Address [address] [place] [address] Phone Care Team Providers Care Office Rep Name Role Phone Juliano PABLO, Jurgen Unavailable [phone] Reason for Visit and Chief Complaint Non Physician Specified Problems Includes: Problems addressed during this encounter and other active Problems Current Visit Onset Date Resolved Date Provider Alia gallego Status Joint Pain Right Knee 09/21/2023 Rubi Thompson PA-C Active Last Documented On 9:39AM ; [facility], [facility] Plan of Treatment Fall Risk Assessment: This [...] with the patient. - Last Documented On 09/21/2023 12:40PM ; [facility], [facility] Assessments Includes: Assessments from this encounter Findings [...] minimal pain relief - Last Documented On 09/21/2023 12:40PM ; [facility], [facility] Physical exam: - Last Documented On 09/21/2023 12:40PM ; [facility], [facility] Constitutional: Well-developed, well-groomed, well-nourished patient in no acute distress who appears stated age height and weight - Last Documented On 09/21/2023 12:40PM ; [facility], [facility] Psychiatric: Patient is alert and oriented to person place date and situation. Mood and affect are normal for current situation. - Last Documented On 09/21/2023 12:40PM ; [facility], [facility] Neurological: Sensation normal bilateral upper and lower extremities. - Last Documented On 09/21/2023 12:40PM ; [facility], [facility] Skin: No lesions noted on upper or lower extremities. Skin is dry warm and with normal turgor. - Last Documented On 09/21/2023 12:40PM ; [facility], [facility] Vascular: No swelling in upper or lower extremities. Dorsalis pedis pulses normal in lower extremities. - Last Documented On 09/21/2023 12:40PM ; [facility], [facility] Gait and Station: Antalgic gait on the right with a cane - Last Documented On 09/21/2023 12:40PM ; [facility], [facility] Left knee: No obvious deformity. No discoloration. [...] Negative patella apprehension. - Last Documented On 09/21/2023 12:40PM ; [facility], [facility] Right knee: Tender medial and lateral joint lines. Moderate effusion. Active range of motion: Extension 2?, flexion 120?. Passive range of motion: Not limited. Strength: 4 out of 5 quadriceps, 4 out of 5 hamstrings. Normal patella mobility. Negative patella apprehension. - Last Documented On 09/21/2023 12:40PM ; [facility], [facility] Left and Right Hips: Full active ROM. No tenderness to palpation. - Last Documented On 09/21/2023 12:40PM ; [facility] Left and Right Feet: No pes planus. No ankle valgus. - Last Documented On 09/21/2023 12:40PM ; [facility] Assessment/ Plan: - Last Documented On 09/21/2023 12:40PM ; [facility] Right knee lateral tibial plateau fracture - Last Documented On 09/21/2023 12:40PM ; [facility], [facility] Physical exam, radiographs and MRI findings were discussed with the patient. We discussed treatment options moving forward. At this time the patient will be immobilized in a TROM brace for support and stabilization. She will remain nonweightbearing. Continue ice and anti-inflammatories as needed for pain. She has been taking tramadol with minimal relief of symptoms. She was instructed to contact our office if symptoms worsen. We will plan to see her back in 1 week with x- rays on arrival. - Last Documented On 09/21/2023 12:40PM ; [facility], [facility] Medical Equipment - Implanted Devices Includes: Current Devices No Medical Equipment Recorded Medications Includes: Medications discussed during this encounter and other current Medications No Medications Taken Medications Administered Includes: Administered Medications from this encounter No Administered Medications Recorded Results Includes: Results discussed during this encounter [...] previous treatment. Social History Description Last Updated Tobacco non-user 09/21/2023 Last Documented On 4 12:40PM ; [facility], [facility] No caffeine use 09/21/2023 Last Documented On 4 12:40PM ; [facility], [facility] No recent change in diet 09/21/2023 Last Documented On 4 12:40PM ; [facility] Not a current smoker. 09/21/2023 Last Documented On 4 12:40PM ; [facility], [facility] Not exercising regularly 09/21/2023 Last Documented On 4 12:40PM ; [facility] Not using alcohol 09/21/2023 Last Documented On 4 12:40PM ; [facility] Not using drugs 09/21/2023 Last Documented On 4 12:40PM ; [facility] Smoking Status Unknown Procedures and Surgical History Includes: Procedures from this encounter Procedures Code Diagnosis Performing Provider Service L ocation Service Date use of tobacco assessment performed 1000F Last Documented On 4 9:42AM ; [facility] patient screened for future fall risk: documentation of any fall with injury in past year 1100F Last Documented On 4 9:42AM ; [facility] review of medications documented 1160F Last Documented On 4 9:42AM ; [facility] an X-ray was performed 28940 Last Documented On 4 9:41AM ; [facility] Medical History Includes: Medical History addressed during this encounter Description Last Updated Past medical and surgical history non-co ntributory 09/21/2023 Last Documented On 4 12:40PM ; [facility] Family History Includes: Family History addressed during this encounter Description Last Updated No significant family history 09/21/2023 Last Documented On 4 12:40PM ; [facility] Review of Systems Includes: Review of Systems [...] Exam Includes: Physical Exam from this encounter No Physical Exam Recorded Allergies Includes: Active Allergies No Known Allergies Encounters Encounter Provider Location Date Check-In Time Check-Out Time Diagnosis Non Physician Specified Rubi Goodwin PA-C [facility] 09/21/19 24 9:05AM 10:44AM Insurance Includes: Active Insurance Policies Plan Name Member ID Group # Subscriber Relationship Effect hellen Dates - [employer] [id number] Fany Alvarez Self Clinical Notes Includes: Clinical Notes from this encounter * Progress note Date Encounter Last Documented by 09/21/2023 Non Physician Specified Last doc umented on 09/21/2023; 12:40 PM, Rubi Goodwin PA-C; [facility], [facility] Active Problems & Conditions - Joint Pain in the Right Knee Referred Here Referred by. History of Present [...] Immunologic: No complaint of seasonal allergic reaction. Tests Previous radiographs right knee from an outside facility reveal a nondisplaced fracture of the lateral tibial plateau, severe degenerative changes with joint space narrowing and osteophyte formation in the medial compartment MRI right knee reveals comminuted intra-articular fracture of the lateral tibial plateau with mild depression, moderate to severe degenerative changes in the medial compartment with probable chronic meniscus tear Assessment 67-year-old female presents after suffering an [...] been taking anti-inflammatories with minimal pain relief Physical exam: Constitutional: Well-developed, well-groomed, well-nourished patient [...] normal in lower extremities. Gait and Station: Antalgic gait on the right with a cane Left knee: No obvious deformity. No discoloration. [...] Right knee lateral tibial plateau fracture Physical exam, radiographs and MRI findings were discussed with the patient. We discussed treatment options moving forward. At this time the patient will be immobilized in a TROM brace for support and stabilization. She will remain nonweightbearing. Continue ice and anti-inflammatories as needed for pain. She has been taking tramadol with minimal relief of symptoms. She was instructed to contact our office if symptoms worsen. We will plan to see her back in 1 week with x- rays on arrival. Previous Tests Imaging: X-Ray: An [...]
--- OUTSIDE RECORDS SUMMARY | 2025-04-11 13:53 | XMS_ITS | Clinical Summary ---
Author Organization [facility] Address [address] [place] [address] Phone Care Team Providers Care Medical Assistant Supervisor Name Role Phone Juliano PABLO, Jurgen Justine [phone] Reason for Visit and Chief Complaint The Chief Complaint is: right knee pain Problems Includes: Problems addressed during this encounter and other active Problems All Visits Onset Date Resolved Date Provider Condition S tatus Joint Pain Right Knee 09/21/2023 Rubi Thompson PA-C Active Last Documented On 9:39AM ; [facility], [facility] Plan of Treatment Fall Risk [...] with the patient. - Last Documented On 11/23/2023 11:43AM ; [facility], [facility] Assessments Includes: Assessments from this [...] minimal pain relief - Last Documented On 11/23/2023 11:43AM ; [facility] Follow up right tibial plateau fracture. Overall patient is doing fairly well. She does have pain laterally with weight-bearing. She has maintained range of motion, but does wear her brace for ambulation. No complaints today. - Last Documented On 11/23/2023 11:43AM ; [facility], [facility] 10/26/23- Follow up right knee. Patient is doing very well overall. She has been ambulating in the brace. Denies any pain with weight-bearing activity. States most of the pain she feels as medially and posteriorly. She does continue to lack a few degrees of full extension, but denies any pain with flexion of the knee. Denies any new injury. - Last Documented On 11/23/2023 11:43AM ; [facility], [facility] 11/23/23- Follow up right knee. Patient has improved significantly. She has been working with physical therapy and states her symptoms have improved. She does have difficulty with terminal extension, but is able to ambulate comfortably and has been progressing very well. No current complaints today. - Last Documented On 11/23/2023 11:43AM ; [facility], [facility] Physical exam: - Last Documented On 11/23/2023 11:43AM ; [facility], [facility] Constitutional: Well-developed, well-groomed, well-nourished patient in no acute distress who appears stated age height and weight - Last Documented On 11/23/2023 11:43AM ; [facility], [facility] Psychiatric: Patient is alert and oriented to person place date and situation. Mood and affect are normal for current situation. - Last Documented On 11/23/2023 11:43AM ; [facility], [facility] Neurological: Sensation normal bilateral upper and lower extremities. - Last Documented On 11/23/2023 11:43AM ; [facility], [facility] Skin: No lesions noted on upper or lower extremities. Skin is dry warm and with normal turgor. - Last Documented On 11/23/2023 11:43AM ; [facility], [facility] Vascular: No swelling in upper or lower extremities. Dorsalis pedis pulses normal in lower extremities. - Last Documented On 11/23/2023 11:43AM ; [facility], [facility] Gait and Station: Slight antalgic gait on the right - Last Documented On 11/23/2023 11:43AM ; [facility], [facility] Left knee: No obvious deformity. [...] Negative patella apprehension. - Last Documented On 11/23/2023 11:43AM ; [facility], [facility] Right knee: Tender medial joint line. No effusion. Active range of motion: Extension 2?, flexion 130?. Passive range of motion: Not limited. Strength: 4 out of 5 quadriceps, 4 out of 5 hamstrings. Normal patella mobility. Negative patella apprehension. - Last Documented On 11/23/2023 11:43AM ; [facility], [facility] Left and Right Hips: Full active ROM. No tenderness to palpation. - Last Documented On 11/23/2023 11:43AM ; [facility], [facility] Left and Right Feet: No pes planus. No ankle valgus. - Last Documented On 11/23/2023 11:43AM ; [facility], [facility] Assessment/ Plan: - Last Documented On 11/23/2023 11:43AM ; [facility], [facility] Right knee lateral tibial plateau fracture - Last Documented On 11/23/2023 11:43AM ; [facility], [facility] Physical exam and radiograph findings were discussed with the patient. She was doing very well and we will continue to progress with physical therapy. Discussed she may advance activity as tolerated as there is adequate healing noted on radiographs. We did discuss she has degenerative changes and will likely have pain and stiffness in the knee moving forward. Discussed we could consider steroid and REYES injections if symptoms worsen at any point. Otherwise we will have her follow up as needed. - Last Documented On 11/23/2023 11:43AM ; [facility], [facility] Medical Equipment - Implanted Devices Includes: Current Devices No Medical Equipment Recorded Medications Includes: Medications discussed during this encounter and other current Medications No Medications Taken Medications Administered Includes: Administered Medications from this encounter No Administered Medications Recorded Vital Signs Includes: Vital Signs from this encounter Vital Name 11/23/2023 10:41A Height (in) 61 Weight (lb) 127 Body Mass Index 24 Body Surface Area 1.6 Note: cl Last Documented: On 11/23/2023 10:41A M ; [facility], [facility] Results Includes: Results discussed during this encounter No Results Recorded For Specified Dates History of Present Illness Includes: History of Present Illness from this encounter ARUN Alvarez is a 68 year old female. - Allergy list reviewed - Problem list reviewed - Medication list reviewed - Previous history of new onset pain Injury is not work related or an automotive accident - No previous treatment. Social History Description Last Updated No caffeine use 11/23/2023 Last Documented On 4 11:43AM ; [facility] No recent change in diet 11/23/2023 Last Documented On 4 11:43AM ; [facility] Not a current smoker. 11/23/2023 Last Documented On 4 11:43AM ; [facility] Not exercising regularly 11/23/2023 Last Documented On 4 11:43AM ; [facility] Not using alcohol 11/23/2023 Last Documented On 4 11:43AM ; [facility] Not using drugs 11/23/2023 Last Documented On 4 11:43AM ; [facility] Tobacco non-user 11/23/2023 Last Documented On 4 11:43AM ; [facility] Smoking Status Unknown Procedures and Surgical History Includes: Procedures from this encounter Procedures Code Diagnosis Performing Provider Service L ocation Service Date use of tobacco assessment performed 1000F Last Documented On 4 10:41AM ; [facility] patient screened for future fall risk: documentation of any fall with injury in past year 1100F Last Documented On 4 10:41AM ; [facility], [facility] review of medications documented 1160F Last Documented On 4 10:41AM ; [facility], [facility] Medical History Includes: Medical History addressed during this encounter Description Last Updated Past medical and surgical history non-co ntributory 11/23/2023 Last Documented On 4 11:43AM ; [facility] Family History Includes: Family History addressed during this encounter Description Last Updated No significant family history 11/23/2023 Last Documented On 4 11:43AM ; [facility] Review of Systems Includes: Review of [...] and no abdominal pain. No Indigestion, no Peptic Ulcer, no GI Stomach Bleed, no Ulcers, and no Acid Reflux. Endocrine: No hot flashes, no muscle weakness, [...] Time Diagnosis Follow Up Rubi Goodwin PA-C [facility] 4 10:19AM 11:11AM Insurance Includes: Active Insurance Policies Plan Name Member ID Group # Subscriber Relationship Effect hellen Dates 1 - [employer] [id number] Fanymarcio Alvarez Self Clinical Notes Includes: Clinical Notes from this encounter * Progress note Date Encounter Last Documented by 11/23/2023 Follow Up Last documented on 11/23/2023; 11:43 AM, Rubi Goodwin PA-C; [facility], [facility] Active Problems & Conditions - Joint Pain in the Right Knee Chief Complaint The Chief Complaint is: Right knee pain. Referred Here Referred by. History of Present Illness Fany Alvarez is a 68 year old female. - Allergy list reviewed [...] and no abdominal pain. No Indigestion, no Peptic Ulcer, no GI Stomach Bleed, no Ulcers, and no Acid Reflux. Endocrine: No hot flashes, no muscle weakness, [...] allergic reaction. Physical Findings - Vitals taken 11/23/2023 10:41 am cl Height 61 in Weight 127 lbs Body Mass Index 24 kg/m2 Body Surface Area 1.6 m2 Tests Three-view radiographs right knee ordered and reviewed by me reveal fracture of the lateral tibial plateau with callus formation, moderate to severe degenerative changes in the medial and patellofemoral compartments Assessment 67-year-old female presents after suffering an [...] her brace for ambulation. No complaints today. 10/26/23- Follow up right knee. Patient is doing very well overall. She has been ambulating in the brace. Denies any pain with weight-bearing activity. States most of the pain she feels as medially and posteriorly. She does continue to lack a few degrees of full extension, but denies any pain with flexion of the knee. Denies any new injury. 11/23/23- Follow up right knee. Patient has improved significantly. She has been working with physical therapy and states her symptoms have improved. She does have difficulty with terminal extension, but is able to ambulate comfortably and has been progressing very well. No current complaints today. Physical exam: Constitutional: Well-developed, well-groomed, [...] normal in lower extremities. Gait and Station: Slight antalgic gait on the right Left knee: No obvious deformity. No discoloration. [...] Negative patella apprehension. Right knee: Tender medial joint line. No effusion. Active range of motion: Extension 2-, flexion 130-. Passive range of motion: Not limited. Strength: 4 out of 5 quadriceps, 4 out of 5 hamstrings. Normal patella mobility. Negative patella apprehension. Left and Right Hips: Full active ROM. No tenderness to palpation. Left and Right Feet: No pes planus. No ankle valgus. Assessment/ Plan: Right knee lateral tibial plateau fracture Physical exam and radiograph findings were discussed with the patient. She was doing very well and we will continue to progress with physical therapy. Discussed she may advance activity as tolerated as there is adequate healing noted on radiographs. We did discuss she has degenerative changes and will likely have pain and stiffness in the knee moving forward. Discussed we could consider steroid and REYES injections if symptoms worsen at any point. Otherwise we will have her follow up as needed. Plan Fall Risk Assessment: This patient has [...]
--- OUTSIDE RECORDS SUMMARY | 2025-04-11 13:53 | XMS_ITS | Patient Health Record ---
Author Organization [facility] Address [address] [facility] [address] [place] [address] Care Team Providers Care Regional Director Of Finance Name Role Phone BeeRizwan leal Primary Care Provider [phone] Anny Patel Unavailable [phone] Migration, Provider Unavailable Unavailable Allergies Allergen (clinical drug ingredient) Drug/Non Drug Allergy documented on EMR Reaction Allergy Type Onset Date Status XYLOCAINE HCL (uncoded) Unknown Allergy Active lidocaine Lidocaine hives Drug Allergy Active Aleve palpitations/sai vated B/P Drug Allergy Active codeine Codeine rash Drug Allergy Active Results Component Value Reference Range Notes COMPREHENSIVE METABOLIC PANE L (46226) Reviewed date:02/11/2025 02:32:09 PM Interpretation: Performing Lab:CB, [facility] [id number] [facility], [facility] HospitalSruhKJ[address] Gino Rico Notes/Report: FASTING: YES FASTING:YES NON-FASTING; NON-FASTING; NON-FASTING; NON-FASTING; NON-FAST GLUCOSE 101 65-99 mg/dL Fasting reference interval For someone without known diabetes, a glucose value between 100 and 125 mg/dL is consistent with prediabetes and should be confirmed with a follow-up test. UREA NITROGEN (BUN) 15 7-25 mg/dL CREATININE 0.61 0.50-1.05 mg/dL EGFR 97 > OR = 60 mL/min/1.73m2 BUN/CREATININE RATIO SEE NOTE: 6-22 (calc) Not Reported: BUN and Creatinine are within reference range. SODIUM 139 135-146 mmol/L POTASSIUM 4.3 3.5-5.3 mmol/L CHLORIDE 107 98-110 mmol/L CARBON DIOXIDE 24 20-32 mmol/L CALCIUM 9.2 8.6-10.4 mg/dL PROTEIN, TOTAL 6.9 6.1-8.1 g/dL ALBUMIN 4.1 3.6-5.1 g/dL GLOBULIN 2.8 1.9-3.7 g/dL (calc) ALBUMIN/GLOBULIN RATIO 1.5 1.0-2.5 (calc) BILIRUBIN, TOTAL 0.9 0.2-1.2 mg/dL ALKALINE PHOSPHATASE 87 37-153 U/L AST 24 10-35 U/L ALT 14 6-29 U/L CBC (INCLUDES DIFF/PLT) (639 9) Reviewed date:02/11/2025 02:32:09 PM Interpretation: Performing Lab:JADEN, [facility]1355 [facility], [facility] HospitalAincTM[address] Gino Rico Notes/Report: NON-FASTING; NON-FASTING; NON-FASTING; NON-FASTING; NON-FAST FASTING:YES FASTING: YES WHITE BLOOD CELL COUNT 4.4 3.8-10.8 Thousand/ uL RED BLOOD CELL COUNT 4.15 3.80-5.10 Million/uL HEMOGLOBIN 12.7 11.7-15.5 g/dL HEMATOCRIT 39.1 35.0-45.0 % MCV 94.2 80.0-100.0 fL MCH 30.6 27.0-33.0 pg MCHC 32.5 32.0-36.0 g/dL For adults, a slight decrease in the calculated MCHC value (in the range of 30 to 32 g/dL) is most likely not clinically significant; however, it should be interpreted with caution in correlation with other red cell parameters and the patient's clinical condition. RDW 12.6 11.0-15.0 % PLATELET COUNT 284 140-400 Thousand/uL MPV 9.1 7.5-12.5 fL ABSOLUTE NEUTROPHILS 2222 8711-2373 cells/uL ABSOLUTE LYMPHOCYTES 1246 309-0208 cells/uL ABSOLUTE MONOCYTES 392 200-950 cells/uL ABSOLUTE EOSINOPHILS 180 15-500 cells/uL ABSOLUTE BASOPHILS 40 0-200 cells/uL NEUTROPHILS 50.5 LYMPHOCYTES 35.6 MONOCYTES 8.9 EOSINOPHILS 4.1 BASOPHILS 0.9 VITAMIN D,25-OH,TOTAL,IA (17 306) Reviewed date:02/11/2025 02:32:09 PM Interpretation: Performing Lab:JADEN Vistaar [id number] [facility] HospitalZAIUS, [facility] Gino Rico Notes/Report: FASTING: YES FASTING:YES NON-FASTING; NON-FASTING; NON-FASTING; NON-FASTING; NON-FAST VITAMIN D,25-OH,TOTAL,IA 46 30-100 ng/mL Vitamin D Status 25-OH Vitamin D: Deficiency: <20 ng/mL Insufficiency: 20 - 29 ng/mL Optimal: > or = 30 ng/mL For 25-OH Vitamin D testing on patients on D2-supplementation and patients for whom quantitation of D2 and D3 fractions is required, the QuestAssureD(TM) 25-OH VIT D, (D2,D3), LC/MS/MS is recommended: order code 28974 (patients >2yrs). See Note 1 Note 1 For additional information, please refer to http://[employer] [employer].Roomer Travel/faq/NOD637 (This link is being provided for informational/ educational purposes only.) VITAMIN B12/FOLATE, SERUM AL NEGAR (7065) Reviewed date:02/11/2025 02:32:09 PM Interpretation: Performing Lab:JADEN Vistaar Kzyt8046 [facility] Gino Rico Notes/Report: FASTING: YES FASTING:YES NON-FASTING; NON-FASTING; NON-FASTING; NON-FASTING; NON-FAST VITAMIN B12 800 068-8553 pg/mL FOLATE, SERUM 21.3 Reference Range Low: <3.4 Borderline: 3.4-5.4 Normal: >5.4 LIPID PANEL, STANDARD (7600) Reviewed date:02/11/2025 02:32:09 PM Interpretation: Performing Lab:JADEN Santeche1355 [facility] Gino Rico Notes/Report: NON-FASTING; NON-FASTING; NON-FASTING; NON-FASTING; NON-FAST FASTING:YES FASTING: YES CHOLESTEROL, TOTAL 112 <200 mg/dL HDL CHOLESTEROL 41 > OR = 50 mg/dL TRIGLYCERIDES 62 <150 mg/dL LDL-CHOLESTEROL 57 Reference range: <100 Desirable range <100 mg/dL for primary prevention; <70 mg/dL for patients with CHD or diabetic patients with > or = 2 CHD risk factors. LDL-C is now calculated using the Farhat calculation, which is a validated novel method providing better accuracy than the Friedewald equation in the estimation of LDL-C. Anthony HE et al. IVONE. 2013;310(37): 6373-2969 (http://[facility] [employer]/faq/PVD010) CHOL/HDLC RATIO 2.7 <5.0 (calc) NON HDL CHOLESTEROL 71 <130 mg/dL (calc) For patients with diabetes plus 1 major ASCVD risk factor, treating to a non-HDL-C goal of <100 mg/dL (LDL-C of <70 mg/dL) is considered a therapeutic option. THYROID PANEL WITH TSH (7444 ) Reviewed date:02/11/2025 02:32:09 PM Interpretation: Performing Lab:JADEN Dekko, Digital [id number] Gino Rico Notes/Report: NON-FASTING; NON-FASTING; NON-FASTING; NON-FASTING; NON-FAST FASTING:YES FASTING: YES T3 UPTAKE 29 22-35 % T4 (THYROXINE), TOTAL 8.2 5.1-11.9 mcg/dL FREE T4 INDEX (T7) 2.4 1.4-3.8 TSH 1.85 0.40-4.50 mIU/L MAGNESIUM (622) Reviewed date:02/11/2025 02:32:09 PM Interpretation: Performing Lab:JADEN [employer], Digital [id number] Gino Rico Notes/Report: NON-FASTING; NON-FASTING; NON-FASTING; NON-FASTING; NON-FAST FASTING:YES FASTING: YES MAGNESIUM 2.2 1.5-2.5 mg/dL PHOSPHATE ( PHOSPHORUS) (7 18) Reviewed date:02/11/2025 02:32:09 PM Interpretation: Performing Lab:JADEN Santeche135[employer], Digital [id number] Gino Rico Notes/Report: NON-FASTING; NON-FASTING; NON-FASTING; NON-FASTING; NON-FAST FASTING:YES FASTING: YES PHOSPHATE ( PHOSPHORUS) 4.3 2.1-4.3 mg/dL BUN Reviewed date:06/04/2024 09:16:23 AM Interpretation: Performing Lab: Notes/Report: BLOOD UREA NITROGEN 15 7-18 mg/dL Note Unless otherwise noted testing performed at: [address] [address] Jameel Eric MD CLIA: [id number] CREATININE Reviewed date:06/04/2024 09:16:23 AM Interpretation: Performing Lab: Notes/Report: CREATININE 0.8 0.6-1.0 mg/dL ESTIMATED GLOM FILTRATION RATE 80 >60- mL/min GFR LIMITATION: The eGFR equation CKD-EPI 2020 is not applicable for pediatric patients or greater than 90 years of age. The following conditions may alter the GFR result: extremes in body size, malnutrition or obesity, skeletal muscle disease, paraplegia or quadriplegia, vegetarian diet or rapidly changing kiney function. 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 Critical falls. Dizziness. Headaches. Loss of balance. COMPARISON: No existing relevant imaging and/or the patient did not have previous relevant imaging. TECHNIQUE: Multiplanar, multisequence MR imaging of the brain before and after intravenous gadolinium administration. FINDINGS: No focal pathologic marrow signal abnormality. Midline intracranial structures are present. There is cerebellar tonsillar descent 0.7 cm below the level of foramen magnum compatible with Chiari I malformation. Normal flow-related signal within the major intracranial arteries and dural venous sinuses. Symmetric internal auditory canals. No acute ischemia. No diffusion weighted signal abnormality. Scattered FLAIR hyperintense foci within the periventricular and deep white matter likely reflecting chronic microvascular ischemic demyelination. No evidence of mass, mass effect, midline shift, or hydrocephalus. There is some mild thickening of the anterior aspects of the dura postcontrast imaging, nonspecific. No pathologic leptomeningeal enhancement. No significant susceptibility artifact on gradient echo imaging to suggest hemosiderin deposition. IMPRESSION: No acute ischemia. Scattered white matter disease. Chiari I malformation, currently without hydrocephalus. . . . S/D/G Electronically signed by: Magdaleno Lozano MD 05/31/2024 04:29 AM [facility] [place] Dictated By: Magdaleno Lozano Transcribed By: Transcribed On: 05/30/2024 3:57 PM Electronically signed by: Magdaleno Lozano 05/30/2024 Thank you for referring FANY ALVAREZ to [facility]. Legally authenticated by RADHA RUTH MD 2024-05-30 15:57:55 MRI : Head, With Contrast Reviewed date:06/03/2024 09:34:06 AM Interpretation: Performing Lab: Notes/Report: LIPID PANEL, STANDARD (7600) Reviewed date:06/02/2024 08:43:57 AM Interpretation: Performing Lab:CB, [facility] [id number] [facility], Qamar CarlsonGajiPN[address] iGno Rico Notes/Report: FASTING:YES AN UPDATE OR CORRECTION HAS BEEN MADE TO NAME FASTING: YES NON-FASTING; NON-FASTING; NON-FASTING; NON-FASTING; NON-FAST CHOLESTEROL, TOTAL 127 <200 mg/dL HDL CHOLESTEROL 40 > OR = 50 mg/dL TRIGLYCERIDES 75 <150 mg/dL LDL-CHOLESTEROL 71 Reference range: <100 Desirable range <100 mg/dL for primary prevention; <70 mg/dL for patients with CHD or diabetic patients with > or = 2 CHD risk factors. LDL-C is now calculated using the Farhat calculation, which is a validated novel method providing better accuracy than the Friedewald equation in the estimation of LDL-C. Anthony HE et al. IVONE. 2013;310(19): 2076-7551 (http://education.Lockitron.HidInImage/faq/ALK035) CHOL/HDLC RATIO 3.2 <5.0 (calc) NON HDL CHOLESTEROL 87 <130 mg/dL (calc) For patients with diabetes plus 1 major ASCVD risk factor, treating to a non-HDL-C goal of <100 mg/dL (LDL-C of <70 mg/dL) is considered a therapeutic option. COMPREHENSIVE METABOLIC PANE Rakesh (56588) Reviewed date:06/02/2024 08:43:57 AM Interpretation: Performing Lab:JADEN [facility] [id number] [facility], Qamar CarlsonKxomJJ[address] Gino Rico Notes/Report: NON-FASTING; NON-FASTING; NON-FASTING; NON-FASTING; NON-FAST FASTING:YES AN UPDATE OR CORRECTION HAS BEEN MADE TO NAME FASTING: YES GLUCOSE 101 65-99 mg/dL Fasting reference interval For someone without known diabetes, a glucose value between 100 and 125 mg/dL is consistent with prediabetes and should be confirmed with a follow-up test. UREA NITROGEN (BUN) 15 7-25 mg/dL CREATININE 0.61 0.50-1.05 mg/dL EGFR 97 > OR = 60 mL/min/1.73m2 BUN/CREATININE RATIO SEE NOTE: 6-22 (calc) Not Reported: BUN and Creatinine are within reference range. SODIUM 141 135-146 mmol/L POTASSIUM 4.3 3.5-5.3 mmol/L CHLORIDE 106 98-110 mmol/L CARBON DIOXIDE 28 20-32 mmol/L CALCIUM 9.4 8.6-10.4 mg/dL PROTEIN, TOTAL 7.0 6.1-8.1 g/dL ALBUMIN 4.4 3.6-5.1 g/dL GLOBULIN 2.6 1.9-3.7 g/dL (calc) ALBUMIN/GLOBULIN RATIO 1.7 1.0-2.5 (calc) BILIRUBIN, TOTAL 1.0 0.2-1.2 mg/dL ALKALINE PHOSPHATASE 92 37-153 U/L AST 24 10-35 U/L ALT 15 6-29 U/L CBC (INCLUDES DIFF/PLT) (639 9) Reviewed date:06/02/2024 08:43:57 AM Interpretation: Performing Lab:JADEN [facility] [address], [facility] HospitalTcwkUP[address] Gino Rico Notes/Report: NON-FASTING; NON-FASTING; NON-FASTING; NON-FASTING; NON-FAST FASTING:YES AN UPDATE OR CORRECTION HAS BEEN MADE TO NAME FASTING: YES WHITE BLOOD CELL COUNT 5.9 3.8-10.8 Thousand/ uL RED BLOOD CELL COUNT 4.16 3.80-5.10 Million/uL HEMOGLOBIN 12.5 11.7-15.5 g/dL HEMATOCRIT 39.1 35.0-45.0 % MCV 94.0 80.0-100.0 fL MCH 30.0 27.0-33.0 pg MCHC 32.0 32.0-36.0 g/dL For adults, a slight decrease in the calculated MCHC value (in the range of 30 to 32 g/dL) is most likely not clinically significant; however, it should be interpreted with caution in correlation with other red cell parameters and the patient's clinical condition. RDW 12.1 11.0-15.0 % PLATELET COUNT 328 140-400 Thousand/uL MPV 9.7 7.5-12.5 fL ABSOLUTE NEUTROPHILS 3611 0673-3394 cells/uL ABSOLUTE LYMPHOCYTES 5460 397-5246 cells/uL ABSOLUTE MONOCYTES 360 200-950 cells/uL ABSOLUTE EOSINOPHILS 183 15-500 cells/uL ABSOLUTE BASOPHILS 30 0-200 cells/uL NEUTROPHILS 61.2 LYMPHOCYTES 29.1 MONOCYTES 6.1 EOSINOPHILS 3.1 BASOPHILS 0.5 VITAMIN B12 (927) Reviewed date:06/02/2024 08:43:57 AM Interpretation: Performing Lab:JADEN Vistaar [address]ma[address], [facility] HospitalYkyjGP[address] Gino Rico Notes/Report: NON-FASTING; NON-FASTING; NON-FASTING; NON-FASTING; NON-FAST FASTING:YES AN UPDATE OR CORRECTION HAS BEEN MADE TO NAME FASTING: YES VITAMIN B12 116 267-0789 pg/mL TSH W/REFLEX TO FT4 (82630) Reviewed date:06/02/2024 08:43:57 AM Interpretation: Performing Lab:JADEN [facility]MtoV Jvhi[address], [facility] HospitalJaysUN[address] Gino Rico Notes/Report: NON-FASTING; NON-FASTING; NON-FASTING; NON-FASTING; NON-FAST FASTING:YES AN UPDATE OR CORRECTION HAS BEEN MADE TO NAME FASTING: YES TSH W/REFLEX TO FT4 0.71 0.40-4.50 mIU/L DEXA Hip and Spine - Screeni ng Reviewed date:08/04/2024 11:12:07 AM Interpretation: Performing Lab: Notes/Report: Mammogram : Bilateral Reviewed date:08/05/2024 01:39:51 PM Interpretation: Performing Lab: Notes/Report: CT Scan : Chest, Lung Cancer Screening Reviewed date:08/01/2024 01:01:04 PM Interpretation: Performing Lab: Notes/Report: Medications Medication SIG (Take, Route, Frequency, Duration) Notes Start Date End Date Status Ondansetron HCl 4 MG 1 tablet Orally twice a day; Duration: 10 days As needed 02/06/2025 Active Spironolactone 25 MG 1 tab(s) orally once a day Active Omeprazole 20 MG 1 cap(s) orally once a day; Duration: 90 Active ALPRAZolam 0.5 MG Take 1 tablet by mouth twice daily; Duration: 30 03/12/2025 Active Aspirin BUFFERED 81 MG 81 MG ORALLY ONCE A DAY; Duration: 90 DAYS *Please review and pick correct strength-formulati on from Skemaz options. If intended option is not shown, discontinue and re-order from Quick Search* Active Prazosin HCl 1 MG 1 capsule at bedtime Orally Once a day; Duration: 90 days 02/06/2025 Active Atorvastatin Calcium 80 MG 1 tab(s) orally once a day; Duration: 30 day(s) Active Meclizine HCl 25 MG 1 tab(s) orally 3 times a day; Duration: 10 days As needed 04/10/2023 Active Centrum Silver - 1 tab(s) orally once a day; Duration: 30 day(s) Active Lexapro 20 MG 1 tab(s) orally once a day; Duration: 90 days Active Losartan Potassium 25 MG 1 tab(s) orally once a day Active Bisoprolol Fumarate 5 MG 1.2 tab orally at bedtime; Duration: 30 days Active Celecoxib 200 MG Take 1 capsule by mouth once daily; Duration: 90 Active Tylenol PM Extra Strength 325 MG 1 TAB ORALLY QHS PRN *Please review and pick correct strength-formulati on from [employer]emaz options. If intended option is not shown, discontinue and re-order from Quick Search* Active Immunizations Vaccine Route Administration Date Status Comme nts Influenza-Fluzone 3+years (NON-MEDICARE) IM Intramuscular 04/23/2018 Administered Fluzone High Dose IM Intramuscular 06/21/2021 Administered Fluzone High Dose IM Intramuscular 03/03/2024 Administered Fluvirin--Influenza vaccine 3+ year Unknown 05/09/2006 Administered Flublok IM Intramuscular 02/24/2020 Administered Social History Tobacco Use: Social History Observation Description Date Details (start date - stop date) Former Smoker NA - NA Smoking: Question Answer Notes Are you a: former smoker How long has it been since you last smoked? 1-5 years Problems Problem Type SNOMED Code ICD Code Onset Dates Problem Status W/U Status Risk Notes Problem Mixed hyperlipidemia (628264523) Mixed hyperlipidemia (E78.2) Active confirmed Problem Generalized anxiety disorder (46674428) Generalized anxiety disorder (F41.1) Active confirmed Problem Essential hypertension (34618898) Essential (primary) hypertension (I10) Active confirmed Problem Gastro-esophageal reflux disease without esophagitis (306173859) Gastro-esophageal reflux disease without esophagitis (K21.9) Active confirmed Problem Localized, primary osteoarthritis of the ankle and/or foot (530259086) Primary osteoarthritis, right ankle and foot (M19.071) Active confirmed Problem Localized, primary osteoarthritis of the ankle and/or foot (644555000) Primary osteoarthritis, left ankle and foot (M19.072) Active confirmed Problem Idiopathic scoliosis of thoracic spine (disorder) (268113151) Other idiopathic scoliosis, thoracic region (M41.24) Active confirmed Problem Fatigue (10988169) Other fatigue (R53.83) Active confirmed Problem Mixed anxiety and depressive disorder (115728201) Depression with anxiety (F41.8) Active confirmed Problem Vitamin D deficiency (14990926) Vitamin D deficiency (E55.9) Active confirmed Problem Hyperlipidemia (88080862) Hyperlipemia, idiopathic familial (E78.5) Active confirmed Problem Constipation (61410236) Constipation, acute (K59.00) Active confirmed Problem Memory loss (58651788) Memory loss (R41.3) Active confirmed Problem Atherosclerotic heart disease of chip[place]cree coronary artery without angina pectoris (831466310572699) Coronary artery disease involving chip[place]cree coronary artery of [place]cree heart without angina pectoris (I25.10) Active confirmed Problem Primary osteoarthritis (992349719) Primary osteoarthritis involving multiple joints (M15.0) Active confirmed Problem Recurrent falls (436008581) Frequent falls (R29.6) Active confirmed Problem Chronic insomnia (728423294) Chronic insomnia (F51.04) Active confirmed Problem Angina (226543514) Coronary sandy ry disease involving chip[place]cree coronary artery of [place]ree heart with angina pectoris (I25.119) Active confirmed Problem Left hemiparesis (143501356) Left hemiparesis (G81.94) Active confirmed Problem Chiari malformation type I (841347959) Chiari malformation type I (G93.5) Active confirmed Problem Moderate recurrent major depression (58928389) Moderate episode of recurrent major depressive disorder (F33.1) Active confirmed Problem Sciatica (58822287) Acute left-sided back pain with sciatica (M54.42) Active confirmed Problem Arthropathy (698383822) Arthritis/arthrop athy of multiple joints (M12.9) Active confirmed Problem Nightmares (964835046) Nightmares (F51.5) Active confirmed Problem Primary hypertension (05780687) Primary hypertension (I10) Active confirmed Problem Ex-tobacco user (finding) (764703922) Personal history of tobacco use (Z87.891) Active confirmed Problem Sleep apnea (22455600) Sleep apnea in adult (G47.30) Active confirmed Problem Inflammatory and toxic neuropathy (922308282) Peripheral polyneuropathy (G62.9) Active confirmed Problem Postmenopausal osteoporosis (190346839) Postmenopausal osteoporosis (M81.0) Active confirmed Problem Midline cystocele (421082299) Prolapse of anterior vaginal wall (N81.10) Active confirmed Problem 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) Active confirmed Problem Moderate major depression, single episode (33851227) Current moderate episode of major depressive disorder without prior episode (F32.1) Active confirmed Problem Impairment of balance (854385259) Balance problem (R26.89) Active confirmed Problem Drug allergy (570009183) Drug allergy (Z88.9) Active confirmed Problem Localized, primary osteoarthritis of the ankle and/or foot (567306656) Arthritis of foot (M19.079) Active confirmed Vital Signs Heart Rate 74 /min 02/06/2025 Temperature 97.9 degrees Fahrenheit 02/06/2025 Blood pressure diastolic 80 mm Hg 02/06/2025 Height 64 in 02/06/2025 Blood pressure systolic 122 mm Hg 02/06/2025 Weight 134.8 lbs 02/06/2025 BMI 23.14 kg/m2 02/06/2025 Encounters Encounter Location Date Provider Diagnosis [facility] [address] [place] [address] 09/06/2024 Provider Migration [facility] [address] [address] 05/23/2024 Anny Patel Frequent headaches R51.9 ; Viral URI J06.9 ; Falling R29.6 and Balance problem R26.89 [facility] [address] [address] 05/30/2024 Anny Patel Encounter for Medica re annual wellness exam Z00.00 ; BMI 22.0-22.9, adult Z68.22 ; Gastro-esophageal reflux disease without esophagitis K21.9 ; Essential (primary) hypertension I10 ; History of tobacco use Z87.891 ; Visit for screening mammogram Z12.31 ; Poor dentition K08.9 ; Depression with anxiety F41.8 ; Frequent falls R29.6 ; Fatigue, unspecified type R53.83 ; Mixed hyperlipidemia E78.2 ; Postmenopausal osteoporosis M81.0 and Arthritis/arthropathy of multiple joints M12.9 [facility] [address] [address] 08/05/2024 Rizwan Besson Memory loss R41.3 an d Current moderate episode of major depressive disorder without prior episode F32.1 [facility] [address] [address] 08/21/2024 Rizwan Besson Drug allergy Z88.9 ; Memory loss R41.3 and Moderate episode of recurrent major depressive disorder F33.[address] [address] 02/06/2025 Rizwan Besson Nightmares F51.5 ; Pain, joint, knee, right M25.561 ; Frequent falls R29.6 ; Mixed hyperlipidemia E78.2 ; Vitamin D deficiency E55.9 ; Peripheral polyneuropathy G62.9 and Current moderate episode of major depressive disorder without prior episode F32.1 [facility] [address] [facility] [address] [place] [address] 05/26/2024 Anny McNees [facility] [address] [place] [address] 05/30/2024 Anny McNees [facility] [address] [place] [address] 05/30/2024 Anny McNees [facility] [address] [facility] [address] [place] [address] 07/24/2024 Rizwan Yen [facility] [address] [place] [address] 08/04/2024 Anny McNees [facility] [address] [facility] [address] [place] [address] 02/06/2025 Rizwan Yen Frequent falls R29.6 Assessments Encounter Date Diagnosis (ICD Code) Assessment Notes Treatment Notes Treatment Clinical Notes Section Notes 05/23/2024 Viral URI (ICD-10 - J06.9) Reassurance. Discussed the etiology & expected course of a viral URI and discussed the rationale for not prescribing antibiotics. Continue supportive care with PRN antipyretics, appropriate OTC cough/cold meds, nasal saline rinses, cough drops, and humidifier. Encourage PO hydration. Discussed the signs and symptoms of worsening condition and need for reassessment in clinic or ED. 05/23/2024 Frequent headaches (ICD-10 - R51.9) 05/30/2024 Encounter for Medicare annual wellness exam (ICD-10 - Z00.00) Colonoscopy UTD Mammogram and DEXA due, will arrange Flu shot UTD Declines pneumonia, RSV and Tdap today Routine labs drawn today. 08/05/2024 Memory loss (ICD-10 - R41.3) Significant psychosocial overlay. GDS screening positive for depression. Start medicine as noted below. Short-term follow-up and I will do a MoCA test formally on the GDS screening again at that point 08/05/2024 Current moderate episode of major depressive disorder without prior episode (ICD-10 - F32.1) 08/21/2024 Memory loss (ICD-10 - R41.3) Performed MoCA testing, patient scored 25/30 but was very borderline on getting into the 27 point range in a couple of items. Please see scanned document in chart. GDS score is 4. I am not concerned about her having dementia. I think her mood clearly affects her memory issues. Long discussion about how to prevent further memory loss 05/30/2024 BMI 22.0-22.9, adult (ICD-10 - Z68.22) BMI at goal. Will cont to monitor 08/21/2024 Drug allergy (ICD-10 - Z88.9) Will make referral to another allergy testing program --would need this fairly quickly because she is scheduled for oral surgery and wants to know which type of lidocaine she can take 02/06/2025 Nightmares (ICD-10 - F51.5) And prazosin for nightmares. Seems to be doing well with depressive symptoms. Hopefully sleep can be better this will solve some of the problems. Will follow-up in May for Medicare wellness and she will call me in a couple weeks if things are not better 02/06/2025 Pain, joint, knee, right (ICD-10 - M25.561) Will get PT evaluation for knee pain as well as her functional status issues 02/06/2025 Frequent falls (ICD-10 - R29.6) 02/06/2025 Frequent falls (ICD-10 - R29.6) Does a lot of walking, would like to be active, frequent falls bother her, would benefit from PT evaluation for core strengthening, fitness training, along with her knee pain 08/21/2024 Moderate episode of recurrent major depressive disorder (ICD-10 - F33.1) I had a very long, greater than 30-minute visit with patient about events in her childhood that she has never really discussed before with any other person. Needless to say, she has been affected by this all her life. Her [employer] [facility] that has been developed over the past 3 to 4 years has been a dramatic help to her. She does not feel like she needs more medicine at this point. Went a very nice discussion. She is on good terms with her son, has a very big help to her. She has a stable hindu family and routine. We will follow-up with her in 2 months or sooner as indicated 05/30/2024 Gastro-esophageal reflux disease without esophagitis (ICD-10 - K21.9) Well controlled on PPI 05/23/2024 Falling (ICD-10 - R29.6) Needs repeat MRI to re-evaluate for change in previous findings. Discussed fall prevention- advised to rise slowly from sitting/supine positions, wear supportive/non-s lip footwear, remove rugs/trip hazards and ensure lighting is adequate. 05/23/2024 Balance problem (ICD-10 - R26.89) 05/30/2024 Essential (primary) hypertension (ICD-10 - I10) B/p well controlled 02/06/2025 Mixed hyperlipidemia (ICD-10 - E78.2) Check labs. All reviewed personally 02/06/2025 Vitamin D deficiency (ICD-10 - E55.9) 05/30/2024 History of tobacco use (ICD-10 - Z87.891) Past due for screening CT of chest 05/30/2024 Visit for screening mammogram (ICD-10 - Z12.31) 02/06/2025 Peripheral polyneuropathy (ICD-10 - G62.9) Labs ordered to review her chronic history of neuropathy, fatigue and vitamin deficiencies 02/06/2025 Current moderate episode of major depressive disorder without prior episode (ICD-10 - F32.1) Stable on Lexapro. Add prazosin to help with sleep as noted above 05/30/2024 Poor dentition (ICD-10 - K08.9) Emergency script given, instructions on when to take discussed. FU with dentist 05/30/2024 Depression with anxiety (ICD-10 - F41.8) Increase SSRI. Discussed rationale for pharmacotherapy, and discussed MOA of med. Discussed time course of expected improvements, and discussed side effect profile - and need for urgent evaluation if agitation or worsening mood occurs. Discussed need for f/u in office. 05/30/2024 Frequent falls (ICD-10 - R29.6) Repeat MRI today with contrast. Will consider neurology referral pending results 05/30/2024 Fatigue, unspecified type (ICD-10 - R53.83) Likely related to her depression, will check labs to r/o underlying pathology 05/30/2024 Mixed hyperlipidemia (ICD-10 - E78.2) On statin, tolerating well. Fasing lipid panel drawn today 05/30/2024 Postmenopausal osteoporosis (ICD-10 - M81.0) Start calcium with D supplement twice a day. Repeat DEXA scan 05/30/2024 Arthritis/arthropa thy of multiple joints (ICD-10 - M12.9) Well controlled on celebrex Plan Of Treatment Pending Test Test Name Order Date Ultrasound : Carotids 11/09/2014 N-Urine Culture and Sensitivity 01/22/20 07 N-Urine Culture and Sensitivity 05/30/20 13 Urinalysis 01/21/2007 Colonoscopy 04/01/2018 Colonoscopy 11/17/2010 DEXA Hip and Spine - Screening 2 Cardiac GXT 06/12/2017 Sleep Study 06/10/2019 MRI : Head, Without Contrast 01/13/2021 Holter Monitor : Event Recorder 01/14/20 Physical Therapy 02/18/2020 Physical Therapy 09/17/2023 Mammogram : Bilateral 11/17/2010 H-CBC with AUTO DIFF 05/30/2013 H-CMP 05/30/2013 H-LIPID PANEL 05/16/2016 H-LIPID PANEL 05/30/2013 C-CBC 06/10/2019 C-CMP 06/10/2019 C-CMP 11/23/2015 C-LIPID PANEL 11/23/2015 C-MAGNESIUM 06/10/2019 C-TSH 06/10/2019 C-VITAMIN B12 06/10/2019 C-URINE CULTURE 10/23/2018 C-URINE CULTURE 02/13/2017 Comp. Metabolic Panel (14) 01/30/2015 Lipid Panel 10/27/2016 Lipid Panel With LDL/HDL Ratio 5 M-Complete Blood Count Auto Diff 020 M-Comprehensive Metabolic Panel 01/19/20 20 M-Lipid Panel 01/19/2020 M-Thyroid Stimulating Hormone 01/19/2020 M-Vitamin B12 01/13/2021 M-Vitamin D 25 Hydroxy 01/13/2021 CT Scan : Chest, Lung Cancer Screening 0 06/18/2018 Physical Therapy : Gait training and cor e strengthening 02/06/2025 COMPREHENSIVE METABOLIC PANEL (REFL) (37 015) 09/14/2022 Future Test Test Name Order Date H-LIPID PANEL 06/21/2017 H-TSH 06/21/2017 HEMOGLOBIN A1c (496) 02/09/2025 Next Appt Details Provider Name:Rizwan Yen, 05/05/2025 10:00:00 AM, 2017 [facility] [address], [place], [address], Insurance Providers Payer Name Payer Address Payer Phone Subscriber Number Group Number Insured Name Patient Relationship to Insured Coverage Start Date Coverage End Date [employer] [address] [place] [address] [id number] Fany Alvarez Self - patient is the insured Medications Administered Medication Instructions Date of Administration Dosage Notes Dexamethasone 4mg Injection 05/04/2023 4 mg Dexamethasone 4mg Injection 05/23/2024 4 mg Medical (General) History Medical History History ICD Code hypertension Esophageal reflux anxiety 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
--- OUTSIDE RECORDS SUMMARY | 2025-04-11 13:53 | XMS_ITS | Clinical Summary ---
Author Organization [facility] Address [address] [place] [address] Phone Care Team Providers Care Air Route Traffic Controller Name Role Phone Juliano PABLO, Jurgen Justine [phone] Reason for Visit and Chief Complaint The Chief Complaint is: right knee pain Problems Includes: Problems addressed during this encounter and other active Problems All Visits Onset Date Resolved Date Provider Condition S tatus Joint Pain Right Knee 09/21/2023 Rubi Thompson PA-C Active Last Documented On 9:39AM ; [facility], [facility] Plan of Treatment Fall Risk Assessment: This [...] with the patient. - Last Documented On 10/26/2023 11:13AM ; [facility] Assessments Includes: Assessments from this encounter Findings [...] minimal pain relief - Last Documented On 10/26/2023 11:13AM ; [facility] 09/28/23- Follow up right tibial plateau fracture. Overall patient is doing fairly well. She does have pain laterally with weight-bearing. She has maintained range of motion, but does wear her brace for ambulation. No complaints today. - Last Documented On 10/26/2023 11:13AM ; [facility], [facility] 10/26/23- Follow up right knee. Patient is doing very well overall. She has been ambulating in the brace. Denies any pain with weight-bearing activity. States most of the pain she feels as medially and posteriorly. She does continue to lack a few degrees of full extension, but denies any pain with flexion of the knee. Denies any new injury. - Last Documented On 10/26/2023 11:13AM ; [facility], [facility] Physical exam: - Last Documented On 10/26/2023 11:13AM ; [facility] Constitutional: Well-developed, well-groomed, well-nourished patient in no acute distress who appears stated age height and weight - Last Documented On 10/26/2023 11:13AM ; [facility] Psychiatric: Patient is alert and oriented to person place date and situation. Mood and affect are normal for current situation. - Last Documented On 10/26/2023 11:13AM ; [facility] Neurological: Sensation normal bilateral upper and lower extremities. - Last Documented On 10/26/2023 11:13AM ; [facility], [facility] Skin: No lesions noted on upper or lower extremities. Skin is dry warm and with normal turgor. - Last Documented On 10/26/2023 11:13AM ; [facility] Vascular: No swelling in upper or lower extremities. Dorsalis pedis pulses normal in lower extremities. - Last Documented On 10/26/2023 11:13AM ; [facility], [facility] Gait and Station: Antalgic gait on the right - Last Documented On 10/26/2023 11:13AM ; [facility] Left knee: No obvious deformity. No discoloration. [...] Negative patella apprehension. - Last Documented On 10/26/2023 11:13AM ; [facility] Right knee: Tender medial joint line, posteriorly. Trace effusion. Active range of motion: Extension 2?, flexion 130?. Passive range of motion: Not limited. Strength: 4 out of 5 quadriceps, 4 out of 5 hamstrings. Normal patella mobility. Negative patella apprehension. - Last Documented On 10/26/2023 11:13AM ; [facility] Left and Right Hips: Full active ROM. No tenderness to palpation. - Last Documented On 10/26/2023 11:13AM ; [facility] Left and Right Feet: No pes planus. No ankle valgus. - Last Documented On 10/26/2023 11:13AM ; [facility] Assessment/ Plan: - Last Documented On 10/26/2023 11:13AM ; [facility] Right knee lateral tibial plateau fracture - Last Documented On 10/26/2023 11:13AM ; [facility] Physical exam and radiograph findings were discussed with the patient. Overall the patient is doing very well. She is now 5 weeks out from the initial injury. We discussed she will continue use of the brace for the next 3 or so weeks. At that point she may gradually come out of the brace and continue weight-bearing as tolerated. She will begin physical therapy working on gentle range of motion and very basic strengthening exercises. If she experiences any pain she should back off of the Physical therapy. Plan to see her back in 4 weeks with x-rays on arrival. - Last Documented On 10/26/2023 11:13AM ; [facility] Medical Equipment - Implanted Devices Includes: Current Devices No Medical Equipment Recorded Medications Includes: Medications discussed during this encounter and other current Medications No Medications Taken Medications Administered Includes: Administered Medications from this encounter No Administered Medications Recorded Vital Signs Includes: Vital Signs from this encounter Vital Name 10/26/2023 10:13A Height (in) 61 Weight (lb) 127 Body Mass Index 24 Body Surface Area 1.6 Note: cl Last Documented: On 10/26/2023 10:13A M ; [facility] Results Includes: Results discussed during this encounter No Results Recorded For Specified Dates History of Present Illness Includes: History of Present Illness from this encounter HPI Fany Alvarez is a 67 year old female. - Allergy list reviewed - Problem list reviewed - Medication list reviewed - Previous history of new onset pain Injury is not work related or an automotive accident - No previous treatment. Social History Description Last Updated No caffeine use 10/26/2023 Last Documented On 4 11:13AM ; [facility], [facility] No recent change in diet 10/26/2023 Last Documented On 4 11:13AM ; [facility] Not a current smoker. 10/26/2023 Last Documented On 4 11:13AM ; [facility] Not exercising regularly 10/26/2023 Last Documented On 4 11:13AM ; [facility] Not using alcohol 10/26/2023 Last Documented On 4 11:13AM ; [facility] Not using drugs 10/26/2023 Last Documented On 4 11:13AM ; [facility], [facility] Tobacco non-user 10/26/2023 Last Documented On 4 11:13AM ; [facility], [facility] Smoking Status Unknown Procedures and Surgical History Includes: Procedures from this encounter Procedures Code Diagnosis Performing Provider Service L ocation Service Date use of tobacco assessment performed 1000F Last Documented On 4 10:13AM ; [facility], [facility] patient screened for future fall risk: documentation of any fall with injury in past year 1100F Last Documented On 4 10:13AM ; [facility], [facility] review of medications documented 1160F Last Documented On 4 10:13AM ; [facility], [facility] Medical History Includes: Medical History addressed during this encounter Description Last Updated Past medical and surgical history non-co ntributory 10/26/2023 Last Documented On 4 11:13AM ; [facility] Family History Includes: Family History addressed during this encounter Description Last Updated No significant family history 10/26/2023 Last Documented On 4 11:13AM ; [facility] Review of Systems Includes: Review of [...] Time Diagnosis Follow Up Rubi Goodwin PA-C [facility] 4 10:10AM 10:39AM Insurance Includes: Active Insurance Policies Plan Name Member ID Group # Subscriber Relationship Effect hellen Dates 1 - [employer] [id number] Fany Alvarez Self Clinical Notes Includes: Clinical Notes from this encounter * Progress note Date Encounter Last Documented by 10/26/2023 Follow Up Last documented on 10/26/2023; 11:13 AM, Rubi Goodwin PA-C; [facility] Active Problems & Conditions - Joint [...] allergic reaction. Physical Findings - Vitals taken 10/26/2023 10:13 am cl Height 61 in Weight 127 lbs Body Mass Index 24 kg/m2 Body Surface Area 1.6 m2 Tests Two-view radiographs right knee ordered and reviewed by me reveal fracture of the lateral tibial plateau with mild depression, stable compared to previous radiographs, moderate to severe degenerative changes [...] of the knee. Denies any new injury. Physical exam: Constitutional: Well-developed, well-groomed, well-nourished patient [...] and Station: Antalgic gait on the right Left knee: No [...] patella apprehension. Right knee: Tender medial joint line, posteriorly. Trace effusion. Active range of motion: Extension 2-, [...] radiograph findings were discussed with the patient. Overall the patient is doing very well. She is now 5 weeks out from the initial injury. We discussed she will continue use of the brace for the next 3 or so weeks. At that point she may gradually come out of the brace and continue weight-bearing as tolerated. She will begin physical therapy working on gentle range of motion and very basic strengthening exercises. If she experiences any pain she should back off of the Physical therapy. Plan to see her back in 4 weeks with x-rays on arrival. Plan Fall Risk Assessment: This patient has [...]
--- OUTSIDE RECORDS SUMMARY | 2025-04-11 13:53 | XMS_ITS | Clinical Summary ---
Author Organization [facility] Address [address] [place] [address] Care Team Providers Care Manufacturing Engineer Name Role Phone Rizwan Yen MD Primary Care Provider [phone] Allergies Active Allergy Reactions Criticality Noted Date Comments Codeine Nausea Only Low 02/03/2017 Lidocaine Hcl Angioedema Low 02/22/2016 Medications aspirin 81 MG EC tablet Take 81 mg by mouth Daily. Active ALPRAZolam (XANAX) 0.5 MG tablet 09/30/2018 Active atorvastatin (LIPITOR) 40 MG tablet 80 mg. 2 08/26/2018 Active buPROPion XL (WELLBUTRIN XL) 150 MG 24 hr tablet 06/26/2018 Active omeprazole (priLOSEC) 20 MG capsule 2 09/03/2018 Active celecoxib (CeleBREX) 200 MG capsule 2 09/07/2018 Active clopidogrel (PLAVIX) 75 MG tablet Take 75 mg by mouth Daily. Active losartan (COZAAR) 50 MG tablet Take 50 mg by mouth Daily. Active amoxicillin (AMOXIL) 500 MG capsule 06/28/2019 Active Active Problems No known active problems Family History Medical History Relation Name Comments Dementia Father Heart disease Father Heart disease Mother Relation Name Status Comments Father Alive Mother Social History Tobacco Use Types Packs/Day Years Used Date Smoking Tobacco: Every Day Cigarettes Smokeless Tobacco: Never Tobacco Cessation:Ready to Q uit: Yes; Counseling Given: Yes Comments:discussed [facility] and -800 QUIT NOW for support. Alcohol Use Standard Drinks/Week Comments No 0 (1 standard drink = 0.6 oz pur e alcohol) Abuse Screen Answer Date Recorded Unsafe at Home or Work/School Not on file Feels Threatened by Someone? Not on file 02/2023 Does Anyone Keep You from Co ntacting Others or Doint Things Outside the Home? Not on file 03/12/2023 Physical Sign of Abuse Present Not on file 1 Housing Stability Answer Date Recorded Current Living Arrangements Not on file 02/2023 Potentially Unsafe Housing Conditions Not on tameka e 03/12/2023 Family and Community Support Answer Juan e Recorded Help with Day-to-Day Activities Not on file 03/12/2023 Lonely or Isolated Not on file 03/12/2023 Employment Answer Date Recorded Do you want help finding or keeping work or a ileana b? Not on file 03/12/2023 Disabilities Answer Date Recorded Concentrating, Remembering, or Making Decisions Difficulty Not on file 03/12/2023 Doing Errands Independently Difficulty Not on fi le 03/12/2023 Education Answer Date Recorded Help with school or training? Not on file Preferred Language Not on file 03/12/2023 Comments No Sex and Gender Information Value Date Recorded Sex Assigned at Not on file Legal Sex Female 10:26 AM EDT Gender Identity Not on file Sexual Orientation Not on file Last Filed Vital Signs Vital Sign Reading Time Taken Comments Blood Pressure 136/88 07/11/2019 6:36 PM EST Pulse 74 07/11/2019 6:36 PM EST Temperature 36.8 C (98.3 F) 07/11/2019 6:36 PM EST Respiratory Rate 15 07/11/2019 6:36 PM EST Oxygen Saturation 98% 07/11/2019 6:36 PM EST Inhaled Oxygen Concentration - - Weight 66.7 kg (147 lb) 07/11/2019 6:36 PM EST Height 160 cm (5' 3 ) 07/11/2019 6:36 PM EST Body Mass Index 26.04 07/11/2019 6:36 PM EST Plan of Treatment Health Maintenance Due Date Last Done Comments DXA SCAN 1955 TDAP/TD VACCINES (1 - Tdap) 10/28/1974 MAMMOGRAM 1995 COLOGUARD 10/28/2000 COLON CANCER SCREENING 5 YEAR SIGMOIDOSCOPY 10/28/2000 COLONOSCOPY 10/28/2000 COLORECTAL CANCER SCREENING 10/28/2000 CT COLONOGRAPHY 10/28/2000 FECAL OCCULT BLOOD TEST 10/28/2000 FIT Testing (1 year) 10/28/2000 Pneumococcal Vaccine 50+ (1 of 1 - PCV) 10/28/2005 ZOSTER VACCINE (1 of 2) 10/28/2005 ANNUAL PHYSICAL 10/10/2016 HEPATITIS C SCREENING 10/10/2016 INFLUENZA VACCINE 01/02/2025 COVID-19 Vaccine ( - 2023- season) [address] [facility] PPO Care Teams Manufacturing Engineer Relationship Specialty Start Date End Date Rizwan Yen MD [address] [facility] [address] [place] [address] PCP - General Adolescent Medicine 02/22/16
--- OUTSIDE RECORDS SUMMARY | 2025-04-11 13:54 | XMS_ITS | Clinical Summary ---
Author Organization [facility] Address [address] [place] [address] Phone Care Team Providers Care Service Planner Name Role Phone Juliano PABLO, Jurgen Unavailable [phone] Reason for Visit and Chief Complaint BRACE FITTING Problems Includes: Problems addressed during this encounter and other active Problems All Visits Onset Date Resolved Date Provider Condition S tatus Joint Pain Right Knee 09/21/2023 Rubi Thompson PA-C Active Last Documented On 9:39AM ; [facility] Plan of Treatment No Plan of Treatment Recorded Assessments Includes: Assessments from this encounter No Assessments Recorded Medical Equipment - Implanted [...] History of Present Illness from this encounter No History of Present Illness Recorded Social History No Social History Recorded - Smoking Status Unknown Medical History Includes: Medical History addressed during this encounter No Medical History Recorded Family History Includes: Family History addressed during this encounter No Family History Recorded Review of Systems Includes: Review of Systems from this encounter No Review of Systems Recorded Mental Status Includes: Mental Status from this encounter No Mental Status Recorded Functional Status Includes: Functional Status from this encounter No Functional Status Recorded Physical Exam Includes: Physical Exam from this encounter No Physical Exam Recorded Allergies Includes: Active Allergies No Known Allergies Encounters Encounter Provider Location Date Check-In Time Check-Out Time Diagnosis BRACE FITTING Rubi Goodwin PA-C [facility] 09/21/2023 10:30AM 11:59PM Insurance Includes: Active Insurance Policies Plan Name Member ID Group # Subscriber Relationship Effect hellen Dates 1 - [employer] [id number] Fany Alvarez Self Clinical Notes Includes: Clinical Notes from this encounter No Clinical Notes Recorded
--- OUTSIDE RECORDS SUMMARY | 2025-04-11 13:54 | XMS_ITS | Data Portability ---
Author Organization [facility] Address [address] [place] [address] Assessment No assessment recorded. Plan of Treatment Reminders Order Date Submit Date Provider Last Modified By Organization Details Last Modified Time Details Appointments None recorded. Lab None recorded. Referral None recorded. Procedures None recorded. Surgeries None recorded. Imaging None recorded. Medication Orders Lexapro 10 mg tablet [address] [facility] [address] [place], [address], 3 13:39:47 Patient TargetsNo targets recorded. Patient InstructionsNo instructions recorded. Reason for Referral None Reported. Problems Name Problem SNOMED Code Status Onset Date Resolution Date Notes Provider Name and Address Organization Details Recorded Time Moderate recurrent major depression 51692763 Active 2021 Problem Code: F33.1; Problem Code Type: ICD-10; Not Available [facility] 2 22:00:23 Body mass index 20-24 - normal 642347433 Active 2021 Not Available [facility] 2 22:00:24 Problem Notes None recorded. Procedures Surgical History Date Name Laterality Status Provider Name and Address Organization Details Recorded Time 10/04/19 22 cholecystectomy completed Not Available [facility] 02/07/2022 22:56:37 10/04/19 22 tonsillectomy and adenoidectomy completed Not Available [facility] 02/07/2022 22:56:38 10/04/19 22 placement of stent in coronary artery completed Not Available [facility] 02/07/2022 22:56:38 Imaging Results None recorded. Procedure Notes None recorded. Medical Equipment None Reported. Allergies Allergen ID Allergen Name Allergen Category Reaction Reaction Severity Criticality Documentation Date Start Date Code Code System Note Provider Name and Address Organization Details Recorded Time 60965 lidocaine medicatio n Not available Not available Not available 02/07/2022 6387 RxNorm Not Available [facility] 22:55:16 Medications Name Sig Start Date Stop Date Status Note LastModified by Organization Details LastModified Time losartan 50 mg tablet take 1/2 tablet (50 mg) by oral route daily 2021 active Not Available Not Available Not Avai l[facility] celecoxib 200 mg capsule take 1 capsule (200 mg) by oral route once daily 2021 active Not Available Not Available Not Avai lable atorvastati n 80 mg tablet take 1 tablet (80 mg) by oral route once daily 2021 active Not Available Not Available Not Avai lable doxycycline hyclate 100 mg capsule take 1 capsule (100 mg) by oral route 2 times per day 01/02 completed Not Available Not Available Not Available aspirin 81 mg tablet,elisha yed release take 1 tablet (81 mg) by oral route once daily 2021 active Not Available Not Available Not Avai lable spironolact one 25 mg tablet take 1 tablet (25 mg) by oral route once daily 2021 active Not Available Not Available Not Avai lable bisoprolol fumarate 5 mg tablet take 1 tablet (5 mg) by oral route once daily 2021 active Not Available Not Available Not Avai lable alprazolam 0.5 mg tablet take 1 tablet (0.5 mg) by oral route bid 2021 active Not Available Not Available Not Avai lable meclizine 25 mg tablet take 1 tablet (25 mg) by oral route 3 times per day as needed 2021 active Not Available Not Available Not Avai lable ondansetron 4 mg disintegrat ing tablet place 1 tablet (4 mg) and place on top of the tongue where it will dissolve, then swallow by transling ual route 4 times per day 2021 active Not Available Not Available Not Avai lable Lexapro 10 mg tablet take 1 tablet (10 mg) by oral route once daily 02/01/ 2023 active Not Available Not Available Not Avai lable omeprazole 20 mg tablet,elisha yed release 2021 active Not Available Not Available Not Avai lable Vitals Date Recorded Body height Body mass index (BMI) Body weight Body temperature Heart rate Oxygen saturation Oxygen saturation in Arterial blood by Pulse oximetry Systolic And Diastolic Provider Name and Address Organization Details Last Updated DateTime 3 167.64 cm 22.9 kg/m2 89367.1 2 g 98 [degF] 56 /min 100 % 100 % 106/57 mm[Hg] KIMBERLY SMITH [facility] 3 13:13:59 Social History Question Answer Notes LastModified by Organizat ion Details LastModified Time Tobacco Smoking Status Former Smoker Caitlin chew, [facility] 07/26/2022 11:25:31 Do You Have An Advance Directive? No Information n ot available 07/05/2022 Is Your Home Air Conditioned? Yes Information not available 07/05/2022 Are You Blind Or Do You Have Difficulty Seeing? No Information n ot available 07/05/2022 In The 14 Days Before Symptom Onset, Have You Had Close Contact With A Laboratory-confirm ed COVID-19 While That Case Was Ill? No Information n ot available 07/05/2022 In The 14 Days Before Symptom Onset, Have You Had Close Contact With A Person Who Is Under Investigation For COVID-19 While That Person Was Ill? No Information not available 07/05/2022 Have You Been To An Area Known To Be High Risk For COVID-19? No Information not available 07/05/2022 Are You Deaf Or Do You Have Serious Difficulty Hearing? No Information not available 07/05/2022 What Type Of Diet Are You Following? REGULAR Information n ot available 07/05/2022 Have There Been Any Changes To Your Family Or Social Situation? No Information no t available 07/05/2022 When Did You Quit Smoking? 16+yearssince lastcigarette Information not available 07/05/2022 Are There Any Guns Present In Your Home? No Information not available 07/05/2022 Do You Have A Medical Power Of Brine Tank Tender? No Information not available 07/05/2022 What Is Your Relationship Status? Information not available 07/05/2022 Do You Use Your Seat Belt Or Car Seat Routinely? Yes Information not available 07/05/2022 Do You Have Smoke And Carbon Monoxide Detectors In Your Home? Yes Information not available 07/05/2022 Are You Passively Exposed To Smoke? No Information no t available 07/05/2022 Are There Any Smokers In Your House? No Information not available 07/05/2022 Do You Use Sunscreen Routinely? Yes Information not available 07/05/2022 Has Tobacco Cessation Counseling Been Provided? No Information not available 07/05/2022 Have You Recently Traveled Abroad? No Information not available 07/05/2022 Do You Have Difficulty Walking Or Climbing Stairs? No Information not available 07/05/2022 Are You Currently In School? No Information not available 07/05/2022 Do You Have Any Dietary Restrictions? No Information not available 07/05/2022 Sex: Female Functional Status Question Answer Note LastModified by Organizat ion Details LastModified Time Do you use any illicit or recreational drugs? No Information not available 07/05/2022 Do you or have you ever used any other forms of tobacco or nicotine? No Information not available 07/05/2022 What is your level of alcohol consumption? None Information not available 07/05/2022 Are you currently employed? No Information not available 07/05/2022 Do you have transportation difficulties? No Information not available 07/05/2022 Are you able to walk independently without assistance or assistive devices? YESWOREST Information not available 07/05/2022 Do you have difficulty doing errands alone? No Information not available 07/05/2022 Are you able to care for yourself independently? Yes Information not available 07/05/2022 Do you have difficulty dressing, bathing, grooming, or toileting? No Information not available 07/05/2022 Mental Status Question Answer Note LastModified by Organization D etails LastModified Time Do you have difficulty concentrating, remembering or making decisions? No Information no t available 07/05/2022 Family History Relationship Description Onset Age of this Age Resolved Age Notes LastModified by Organization Details LastModified Time Unspecified Relation Family history of Depression [email or web address] Not available 07/26 11:25:09 Unspecified Relation Family history of Hypertension [email or web address] Not available 11:25:11 Unspecified Relation Family history of ischemic heart disease [email or web address] Not available 2022 11:25:14 Unspecified Relation Family history of hyperlipidem ia [email or web address] Not available 2022 11:25:16 Unspecified Relation Family history of diabetes mellitus type 1 [email or web address] Not available 2022 11:25:20 Medical History Condition Response Coronary Artery Disease Y Acid Reflux (GERD) Y Hypertension Y High Cholesterol Y Gynecological HistoryNo gynecological history recorded. Obstetrics History GPAL:G 0 P 0 0 0 0 Past Encounters Encounter ID Performer Location Encounter Start Date Encounter Closed Date Diagnosis/Indication Diagnosis SNOMED-CT Code Diagnosis ICD10 Code Diagnosis IMO Codes Diagnosis Note [id number] Katina Leonides [place] [id number] 0 07/05/2022 12:54:02 07/05/2022 13:43:47 Moderate recurrent major depression 33428641 F33.1 Continue Lexapro. She is to call me if her status changes. Body mass index 20-24 - normal 309136473 Z68.22 Health Concerns Section Related Observation LastModified by Organization Detai ls LastModified Time None Recorded Concern Status LastModified by Organization Details LastModified Time None Recorded Advance Directives Directive N: Payers Insurance Date Sequence Insurance Name Policy Number Policy Garcia Covered Member ID Garcia Member ID Guarantor Name 01/05/2023 [place]ARE [place]: [employer] [facility] Fany Alvarez [id number] Fany Alvarez 01/05/2023 1 [employer] (MEDICARE REPLACEMENT/A DVANTAGE - O) Fany Alvarez [id number] Fany Alvarez 01/01/2023 2 [employer] (MEDICARE REPLACEMENT/A DVANTAGE - HMO) Fany Alvarez [id number] Fany Alvarez 01/05/[address] [facility] (MEDICAID HMO) Fany Alvarez [id number] Fany Alvarez 07/05/2022 1 *SELF PAY* Emil Alvarez Notes Date Note Type Note Provider Name and Address Organization Details Recorded Time 07/05/19 23 text/ht ml Anxiety/DepressionReported by PatientHPIFor context, patient reportsmajor life stressors,family problems, andbereavement. For associated symptoms, patient reportsdepressionandfatiguebut reportsdenies homicidal ideations,no significant weight gain,no significant weight loss,no visual/auditory hallucinations,no delusions,no shortness of breath,mood good,no anxiety,no crying spells,no panic,no isolation,sleeping well,appetite good,energy good,no apathy,maintaining functionality,no excessive worrying,no apprehension,no htn,no muscular tension,no leaden paralysis,no posttraumatic stress disorder,no panic symptoms,no obsessive-compulsive disorder,no feelings of worthlessness, andable to concentrate. For severity, patient reportsdenies suicidal ideations,able to maintain relationships,does not interfere with activities of daily living, andsymptoms improved(c/o brief visual hallucination if she awakens in the night she sees someone standing over her bed. she feels depression is improved and she is functioning well. she does not want to taper off the lexapro to another med unless this sx progresses.). For duration, patient reportschronic. For modifying factors, patient reportssocial supportandselective serotonin reuptake inhibitor (ssri).ROS as noted in the HPI Katina Coyle, JESSIE [address] [facility] [place], [address], [place] [facility] 07/05/2022 15:22:30 OBGyn Episode No OBEpisode recorded.
--- NOTE | 2025-04-11 13:58 | PC.NURSE ---
visual acuity 20/40 R eye unable to do left eye because she can not see out of it at all per pt
--- NOTE | 2025-04-11 15:10 | CT_ITS ---
PROCEDURE INFORMATION: Exam: CTA Neck With Contrast Exam date and time: 04/11/2025 4:08 PM Age: 69 years old Clinical indication: Other: Max 1 malformation, acute L monoc vision loss TECHNIQUE: Imaging protocol: Computed tomographic angiography of the neck with contrast. Exam focused on the cervical segments of the vasculature. 3D rendering (Not supervised by radiologist): MIP and/or 3D reconstructed images were created by the technologist. Radiation optimization: All CT scans at this facility use at least one of these dose optimization techniques: automated exposure control; mA and/or kV adjustment per patient size (includes targeted exams where dose is matched to clinical indication); or iterative reconstruction. Contrast material: ISO 370; Contrast volume: 80 ml; Contrast route: INTRAVENOUS (IV); COMPARISON: CT HEAD/BRAIN WO CON 04/11/2025 4:05 PM FINDINGS: Right common carotid artery: No stenosis. No dissection or occlusion. Right internal carotid artery: No stenosis of the extracranial segment. No dissection or occlusion. Right external carotid artery: No occlusion or stenosis of the origin. Left common carotid artery: No stenosis. No dissection or occlusion. Left internal carotid artery: No stenosis of the extracranial segment. No dissection or occlusion. Left external carotid artery: No occlusion or stenosis of the origin. Right vertebral artery: No stenosis. No dissection or occlusion. Left vertebral artery: No stenosis. No dissection or occlusion. Soft tissues: Normal. No significant soft tissue swelling. Bones/joints: No acute fracture. IMPRESSION: No stenosis or occlusion. REFERENCES: NASCET CRITERIA. The degree of stenosis in the cervical segment of the internal carotid artery is based on NASCET criteria. Normal is no stenosis. Mild is less than 50% stenosis. Moderate is 50-69% stenosis. Severe is 70% to 99% stenosis. Total occlusion is no detectable patent lumen.
--- NOTE | 2025-04-11 15:10 | CT_ITS ---
PROCEDURE INFORMATION: Exam: CT Head Without Contrast Exam date and time: 04/11/2025 4:05 PM Age: 69 years old Clinical indication: Other: Max 1 malformation, acute L monoc vision loss TECHNIQUE: Imaging protocol: Computed tomography of the head without contrast. Radiation optimization: All CT scans at this facility use at least one of these dose optimization techniques: automated exposure control; mA and/or kV adjustment per patient size (includes targeted exams where dose is matched to clinical indication); or iterative reconstruction. COMPARISON: MR HEAD/BRAIN WO/W CON 09/25/2022 9:58 AM FINDINGS: Brain: No acute intracranial hemorrhage.. . There is mild diffuse heterogeneity of the white matter attenuation, consistent with chronic white matter ischemic changes. Mild cerebral atrophy. 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 Paranasal sinuses: Visualized sinuses are unremarkable. No fluid levels. Mastoid air cells: Visualized mastoid air cells are well aerated. Bones: Unremarkable. No acute fracture. Soft tissues: Unremarkable. IMPRESSION: No acute intracranial hemorrhage.. .
--- NOTE | 2025-04-11 15:10 | CT_ITS ---
PROCEDURE INFORMATION: Exam: CTA Head With Contrast, Arteriography Exam date and time: 04/11/2025 4:08 PM Age: 69 years old Clinical indication: Other: Max 1 malformation, acute L monoc vision loss TECHNIQUE: Imaging protocol: Computed tomographic angiography of the head with contrast. Exam focused on the arteries. 3D rendering (Not supervised by radiologist): MIP and/or 3D reconstructed images were created by the technologist. Radiation optimization: All CT scans at this facility use at least one of these dose optimization techniques: automated exposure control; mA and/or kV adjustment per patient size (includes targeted exams where dose is matched to clinical indication); or iterative reconstruction. Contrast material: ISO 370; Contrast volume: 80 ml; Contrast route: INTRAVENOUS (IV); COMPARISON: CT HEAD/BRAIN WO CON 04/11/2025 4:05 PM FINDINGS: ANTERIOR CIRCULATION: Right internal carotid artery: Mild atherosclerotic changes in the right cavernous carotid without flow-limiting stenosis. Right middle cerebral artery: No occlusion or significant stenosis. No aneurysm. Right anterior cerebral artery: No occlusion or significant stenosis. No aneurysm. Left internal carotid artery: Mild atherosclerotic changes in the left cavernous carotid without flow-limiting stenosis. Left middle cerebral artery: No occlusion or significant stenosis. No aneurysm. Left anterior cerebral artery: No occlusion or significant stenosis. No aneurysm. POSTERIOR CIRCULATION: Right vertebral artery: No occlusion or significant stenosis. No aneurysm. Left vertebral artery: No occlusion or significant stenosis. No aneurysm. Basilar artery: No occlusion or significant stenosis. No aneurysm. Right posterior cerebral artery: No occlusion or significant stenosis. No aneurysm. Left posterior cerebral artery: No occlusion or significant stenosis. No aneurysm. Brain: No definite mass, mass effect, or midline shift. There is low-lying of the cerebellar tonsils Cerebral ventricles: No ventriculomegaly. Bones/joints: Unremarkable. No acute fracture. Soft tissues: Unremarkable. Other findings: For findings in the head, please refer to the separately dictated head CT report under a separate accession number. IMPRESSION: 1. Diffuse atherosclerotic changes involving predominantly cavernous carotid arteries. 2. No large vessel occlusion.
--- NOTE | 2025-04-11 15:11 | HMH.EDGENADL ---
Discharge Plan Disposition Patient Disposition: Xfer Other Prescriptions Prescriptions: No Action omeprazole 20 mg capsule,delayed release(DR/EC) 20 mg PO DAILY celecoxib 200 mg capsule 200 mg PO ONCE acetaminophen [Tylenol Extra Strength] 500 mg tablet 500 mg PO Q6H PRN (Reason: Pain) escitalopram oxalate 20 mg tablet 20 mg PO DAILY Patient Comments: TAKE 1 TABLET BY MOUTH ONCE DAILY Ca-D3-mag ff-oavi-jwz-jarrett-bor [Calcium 600-D3 Plus (mag-zinc)] 600 mg calcium- 20 mcg-50 mg tablet PO bisoprolol fumarate 2.5 mg tablet 2.5 mg PO DAILY Qty: 30 3RF atorvastatin 80 mg tablet See Rx Instructions .ROUTE .COMPLEX Qty: 90 3RF Dose Instruction: Take 1 tablet by mouth once daily Rx Instructions: Take 1 tablet by mouth once daily losartan 25 mg tablet See Rx Instructions .ROUTE .COMPLEX Qty: 90 3RF Dose Instruction: TAKE 1 TABLET BY MOUTH ONCE DAILY FOR HIGH BLOOD PRESSURE Rx Instructions: TAKE 1 TABLET BY MOUTH ONCE DAILY FOR HIGH BLOOD PRESSURE spironolactone 25 mg tablet See Rx Instructions .ROUTE .COMPLEX Qty: 90 3RF Dose Instruction: Take 1 tablet by mouth once daily Rx Instructions: Take 1 tablet by mouth once daily estradiol 0.01 % (0.1 mg/gram) cream See Rx Instructions .ROUTE .COMPLEX Qty: 43 5RF Dose Instruction: USE 1 GRAM VAGINALLY AT BEDTIME FOR 2 WEEKS. PATIENT IS TO USE BLUEBERRY SIZE AMOUNT FOR 2 WEEKS, THEN TWICE WEEKLY THEREAFTER Rx Instructions: USE 1 GRAM VAGINALLY AT BEDTIME FOR 2 WEEKS. PATIENT IS TO USE BLUEBERRY SIZE AMOUNT FOR 2 WEEKS, THEN TWICE WEEKLY THEREAFTER aspirin 81 MG tablet,delayed release (DR/EC) 81 mg PO DAILY alprazolam 0.5 MG tablet 0.5 mg PO Q6HP PRN (Reason: Anxiety) Rx Instructions: .5MG pm .25MG am Referrals Follow up/Referrals: Rizwan Yen MD [Primary Care Provider, Internal Medicine] - See instructions Clinical Impressions Clinical Impression: Monocular vision loss Stand Alone Forms Stand Alone Forms: Transfer Record - ED Print Language Print Language: Niuean Discharge ED Provider: Reji Szymanski General Adult HPI <Reji Szymanski MD - Last Filed: 04/11/25 16:06> General Chief complaint: Eye Problems Stated complaint: no vision in left eye. Time Seen by Provider: 04/11/25 14:05 Mode of Arrival: Ambulatory Source of Information: Patient Description of Symptoms (Recalled from ER Triage Doc. by RN): pt reports blurry/no vision to left eye that has worsened since yesterday. states it was itching yesterday and now she can not see out of it at all. History of Present Illness HPI narrative: Patient is a 69-year-old female with past medical history of Chiari I malformation, coronary artery disease, hypertension, hyperlipidemia, corrective vision with glasses who presents emergency department for evaluation of visual blurriness and loss. Onset was acute, over the course of the day yesterday she felt as if her glasses were dirty she had progressive blurry vision and ultimately today was only able to see lights and colors prior to arrival but could not make out discrete objects. This became concerning to her and she presents here for continued evaluation. No headache, no chest pain no abdominal pain no speech difficulties no gait difficulties reported no extremity weakness. Please note that above description of symptoms, in this electronic medical record under categorization of recalled from ER triage doctor by RN are reflective of an initial nursing assessment, however, is not reflective of my full history and physical exam that was personally taken and clarified. Consequentially, this preceding description of symptoms, which may include the patient's categorized chief complaint in the EMR, do not reflect my personal clinical impression, and the ultimate description of history of present illness and patient stated complaints should be deferred to this section of the note. Unless stated otherwise or congruent with this section of the note, additional signs, symptoms, or incongruence should be interpreted as inaccurate with my clinical impression. Related Data Home Medications ?Medication ?Instructions ?Recorded ?Confirmed alprazolam 0.5 mg tablet 0.5 mg PO Q6HP PRN Anxiety 02/14/18 03/11/25 aspirin 81 mg tablet,delayed 81 mg PO DAILY Heart disease 02/14/18 03/11/25 release omeprazole 20 mg capsule,delayed 20 mg PO DAILY Reflux/Acid reflux 07/09/18 03/11/25 release acetaminophen 500 mg tablet 500 mg PO Q6H PRN Pain 11/14/18 03/11/25 (Tylenol Extra Strength) calcium 600 mg-D3 20 mcg-magnesium tab PO 09/09/24 03/11/25 50 is-Gt-gthpjs-indio-boron tablet (Calcium 600-D3 Plus (mag-zinc)) celecoxib 200 mg capsule 200 mg PO ONCE Arthritis 09/09/24 03/11/25 escitalopram oxalate 20 mg tablet 20 mg PO DAILY 09/09/24 03/11/25 Previous Rx's ?Medication ?Instructions ?Recorded atorvastatin 80 mg tablet See Rx Instructions .Route 06/26/24 .COMPLEX #90 tabs losartan 25 mg tablet See Rx Instructions .Route 06/26/24 .COMPLEX #90 tabs spironolactone 25 mg tablet See Rx Instructions .Route 07/31/24 .COMPLEX #90 tabs estradiol 0.01% (0.1 mg/gram) See Rx Instructions .Route 10/08/24 vaginal cream .COMPLEX #43 grams bisoprolol fumarate 2.5 mg tablet 2.5 mg PO DAILY #30 tabs 03/11/25 Allergies Allergy/AdvReac Type Severity Reaction Status Date / Time lidocaine Allergy Severe Anaphylaxis Verified 03/11/25 13:07 [facility] <Reji Szymanski MD - Last Filed: 04/11/25 16:06> [facility] Disclaimer: The information contained in this section may have been updated after the patient was seen, as this information can be updated by other users. Medical History Chiari malformation type I CAD (coronary artery disease) Fatigue Daytime somnolence SOB (shortness of breath) Palpitations HLD (hyperlipidemia) HTN (hypertension) Surgical History History of heart artery stent History of endometrial ablation History of cholecystectomy Family History Other Family history of diabetes mellitus type I Family history of heart disease Family history of hyperlipidemia Family history of myocardial infarction Social History Smoking Status: Never smoker years smoked: 40 how long ago did patient quit smokin.5 years ago second hand exposure: No alcohol intake: never substance use type: denies use current occupational status: retired Travel in the last 8 weeks?: None household members: none housing: house lives independently: Yes marital status: caffeine: Yes special lyndsey needs: No agree to transfusion: No do you feel safe at home: Yes victim of physical abuse: No victim of emotional abuse: No victim of sexual abuse: No would you like helpful sources: No Have you lived/traveled outside [place] in past 30 days?: No Contact w/someone who lives/traveled outside [place] past 30 days?: No Exposure to someone with infectious disease in past 14 days?: No Do you have a fever (greater than 100.4 F or 38 C)?: No Have you tested positive for COVID-19?: No Exposed to someone with COVID-19 in past 14 days?: No Do you have a sore throat?: No Do you have a cough?: No Do you have any weakness?: No Do you have any diarrhea?: No Are you experiencing any unusual bleeding?: No Do you have any muscle aches/pain?: No Do you have any abdominal pain?: No Are you experiencing loss of taste or smell?: No Other Medical History Have you received the Flu Vaccine for this season: No Have you received the Pneumonia Vaccine: Yes <Reji Szymanski MD - Last Filed: 04/11/25 16:06> ROS Obtained: Yes Systems reviewed as appropriate & no additional complaints except as documented Physical Exam <Reji Szymanski MD - Last Filed: 04/11/25 16:06> General General appearance: alert Head Head exam: atraumatic and normocephalic Eye Eye exam: Present PERRL and EOMI; Absent conjunctival redness ENT ENT exam: Present mucous membranes moist Neck Neck exam: Present normal inspection Chest Chest inspection: Present normal inspection and symmetric chest wall rise Respiratory Respiratory exam: Present normal lung sounds bilaterally; Absent respiratory distress Cardiovascular Cardiovascular exam: Present regular rate and normal rhythm Abdominal Exam Abdominal exam: Present soft; Absent tenderness Extremities Exam Extremities exam: Present normal inspection Neurological Exam Neurological exam: Present alert; Absent CN II-XII intact (Visual acuity 20/40 OD, to light and color only OS) or motor sensory deficit Psychiatric Psychiatric exam: Present normal affect Skin Skin exam: Present warm and dry Medical Decision Making <Reji Szymanski MD - Last Filed: 04/11/25 16:06> Medical Records Screening: Per USPSTF and CDC recommendations, given the prevalence of disease in our region, it is our hospital?s policy to screen for HIV and viral Hepatitis for all patients aged 18 and over and those with ongoing risk factors. [place] Inquiry Pt receiving controlled substance: No Vital Signs: 04/11/25 13:55 04/11/25 14:30 04/11/25 14:45 Temperature 97.9 F Temperature Source Oral Pulse Rate 58 L 57 L Pulse Rate [Right] 74 Respiratory Rate 16 Blood Pressure 128/68 115/67 Blood Pressure [Right Arm] 142/68 H Blood Pressure Mean Blood Pressure Mean [Right Arm] 92 02 Sat by Pulse Oximetry 100 97 96 Oxygen Delivery Method Room Air Room Air Room Air 04/11/25 15:00 04/11/25 15:31 04/11/25 16:30 Temperature Temperature Source Pulse Rate 57 L 57 L 54 L Pulse Rate [Right] Respiratory Rate Blood Pressure 132/68 132/73 128/66 Blood Pressure [Right Arm] Blood Pressure Mean 92 Blood Pressure Mean [Right Arm] 02 Sat by Pulse Oximetry 97 97 97 Oxygen Delivery Method Room Air Room Air Room Air 04/11/25 16:46 04/11/25 17:01 04/11/25 17:16 Temperature Temperature Source Pulse Rate 53 L 54 L 52 L Pulse Rate [Right] Respiratory Rate Blood Pressure 123/69 130/96 H 145/79 H Blood Pressure [Right Arm] Blood Pressure Mean Blood Pressure Mean [Right Arm] 02 Sat by Pulse Oximetry 99 98 98 Oxygen Delivery Method Room Air Room Air Room Air Lab Data Lab Results 04/11/25 14:17: WBC 5.3, RBC 4.28, Hgb 13.1, Hct 40.2, MCV 93.9, MCH 30.6, MCHC 32.6, RDW 12.3, Plt Count 296, MPV 9.1, Neut % (Auto) 59.2, Lymph % (Auto) 28.8, [place] % (Auto) 7.4, Eos % (Auto) 3.4, Baso % (Auto) 0.8, Neut # (Auto) 3.1, Lymph # (Auto) 1.5, [place] # (Auto) 0.4, Eos # (Auto) 0.2, Baso # (Auto) 0.0, PT 10.6, INR 0.95, APTT 26.8, Sodium 138, Potassium 4.1, Chloride 100, Carbon Dioxide 29, Anion Gap 13.1, BUN 12, Creatinine 0.70, Estimated Creat Clear 50, Estimated GFR 83, Est GFR ( Amer) 100, Glucose 98, Calcium 9.3, Total Bilirubin 0.9, AST 44 H, ALT 24, Alkaline Phosphatase 77, Troponin I < 0.01, Total Protein 8.0, Albumin 5.4 H, Globulin 2.6, Albumin/Globulin Ratio 2.1 H, Triglycerides 51, Cholesterol 132 L, LDL Cholesterol Direct 83.56 L, VLDL Cholesterol 10, HDL Cholesterol 44, Cholesterol/HDL Ratio 3.0, Plasma/Serum Alcohol < 10 04/11/25 15:50: Urine Color Yellow, Urine Appearance Clear, Urine pH 6.5, Ur Specific [place] 1.010, Urine Protein Negative, Urine Glucose (UA) Negative, Urine Ketones Negative, Urine Blood Trace-i, Urine Nitrate Negative, Urine Bilirubin Negative, Urine Urobilinogen 1.0, Ur Leukocyte Esterase Trace, Urine RBC 3-5, Urine WBC None, Ur Squamous Epith Cells 3-5, Urine Bacteria None, Urine Opiates Screen Negative, Urine Methadone Screen Negative, Ur Barbituates Screen Negative, Ur Phencyclidine Scrn Negative, Ur Amphetamines Screen Negative, U Benzodiazepines Scrn Positive H, Urine Cocaine Screen Negative, U Marijuana (THC) Screen Negative 04/11/25 14:17 04/11/25 14:17 Orders (Tests/Meds): ED MEDICATIONS Generic Name Dose Route Start Last Admin Trade Name Freq PRN Reason Stop Dose Admin Sodium Chloride 10 ml 04/11/25 15:10 Sodium Chloride 0.9% 10ml Flush Syringe IV 05/11/25 15:09 NEEDED PRN Maintain IV Site Discontinued Medications Generic Name Dose Route Start Last Admin Trade Name Freq PRN Reason Stop Dose Admin Iopamidol 80 ml 04/11/25 16:16 04/11/25 16:17 Iopamidol-370 (76%);100ml Bottle IV 04/11/25 16:17 80 ml ONCE ONE Administration Sodium Chloride 50 ml 04/11/25 16:16 04/11/25 16:17 0.9 % Sodium Chloride 50 Ml Vial IV 04/11/25 16:17 50 ml ONCE ONE Administration Sodium Chloride 10 ml 04/11/25 16:16 04/11/25 16:17 Sodium Chloride 0.9% 10ml Syr (Rad Only) IV 04/11/25 16:17 10 ml ONCE ONE Administration ORDERS Category Date Time Status CT angio head Stat Cat Scan 04/11/25 15:[address] angio neck Stat Cat Scan 04/11/25 15:[address] head/brain wo con Stat Cat Scan 04/11/25 15:10 Completed POCUS Point of Care (ER Only) Stat Exams 04/11/25 14:06 Completed Activated Partial Thrombo Time Stat Lab 04/11/25 14:17 Completed Complete Blood Count Auto Diff Stat Lab 04/11/25 14:17 Completed Comprehensive Metabolic Panel Stat Lab 04/11/25 14:17 Completed Drug Screen,Urine Stat Lab 04/11/25 15:50 Completed Ethyl Alcohol Stat Lab 04/11/25 14:17 Completed Lipid Panel Stat Lab 04/11/25 14:17 Completed Prothrombin Time INR Stat Lab 04/11/25 14:17 Completed Troponin I Stat Lab 04/11/25 14:17 Completed Urinalysis and Microscopic Stat Lab 04/11/25 15:50 Completed ECG Request Stat Y 04/11/25 15:10 Ordered ECG Data Tracing #1: Independently interpreted by me rate is 57, rhythm is regular, axis is normal, no ST elevation in anatomical contiguous leads, QTc 402. Medical Decision Narrative: In summary patient is 69-year-old female past medical history of scrota but presents Emergency Department for evaluation of acute monocular vision loss. Patient is hemodynamically stable nontoxic-appearing upon arrival, afebrile. Differential diagnosis includes central retinal artery occlusion, retinal attachment, vitreous hemorrhage, among others. Workup in totality will be conducted with hematologic labs, noncontrasted CT scan of the head CTA of the head and neck. Patient is well outside the window for thrombolytics. [id number]-[id number]-qrln ultrasound is equivocal but I do not see any discrete retinal detachment although there is echogenic opacities in her posterior globe which would be not what I would expect. CT imaging pending at time of transfer of care to the oncoming physician, Dr. Carey. Procedure: Procedure performed was ysipt-ro-thyd ultrasound. Procedure performed by Reji Szymanski. Using a linear probe the optic nerve sheath diameter was measured and was less than 5 mm. There appears to be echogenic material in the posterior globe however there is no discrete retinal or vitreous detachment identified. Images were saved to permanent archive and were technically adequate. Patient tolerated procedure well there were no immediate complications. <Aubrey Carey MD - Last Filed: 04/11/25 17:36> Vital Signs: 11/08/25 13:55 04/11/25 14:30 04/11/25 14:45 Temperature 97.9 F Temperature Source Oral Pulse Rate 58 L 57 L Pulse Rate [Right] 74 Respiratory Rate 16 Blood Pressure 128/68 115/67 Blood Pressure [Right Arm] 142/68 H Blood Pressure Mean Blood Pressure Mean [Right Arm] 92 02 Sat by Pulse Oximetry 100 97 96 Oxygen Delivery Method Room Air Room Air Room Air 04/11/25 15:00 04/11/25 15:31 04/11/25 16:30 Temperature Temperature Source Pulse Rate 57 L 57 L 54 L Pulse Rate [Right] Respiratory Rate Blood Pressure 132/68 132/73 128/66 Blood Pressure [Right Arm] Blood Pressure Mean 92 Blood Pressure Mean [Right Arm] 02 Sat by Pulse Oximetry 97 97 97 Oxygen Delivery Method Room Air Room Air Room Air 04/11/25 16:46 04/11/25 17:01 04/11/25 17:16 Temperature Temperature Source Pulse Rate 53 L 54 L 52 L Pulse Rate [Right] Respiratory Rate Blood Pressure 123/69 130/96 H 145/79 H Blood Pressure [Right Arm] Blood Pressure Mean Blood Pressure Mean [Right Arm] 02 Sat by Pulse Oximetry 99 98 98 Oxygen Delivery Method Room Air Room Air Room Air Lab Data Lab results reviewed: Yes I reviewed the patient's lab results. Lab Results 04/11/25 14:17: WBC 5.3, RBC 4.28, Hgb 13.1, Hct 40.2, MCV 93.9, MCH 30.6, MCHC 32.6, RDW 12.3, Plt Count 296, MPV 9.1, Neut % (Auto) 59.2, Lymph % (Auto) 28.8, [place] % (Auto) 7.4, Eos % (Auto) 3.4, Baso % (Auto) 0.8, Neut # (Auto) 3.1, Lymph # (Auto) 1.5, [place] # (Auto) 0.4, Eos # (Auto) 0.2, Baso # (Auto) 0.0, PT 10.6, INR 0.95, APTT 26.8, Sodium 138, Potassium 4.1, Chloride 100, Carbon Dioxide 29, Anion Gap 13.1, BUN 12, Creatinine 0.70, Estimated Creat Clear 50, Estimated GFR 83, Est GFR ( Amer) 100, Glucose 98, Calcium 9.3, Total Bilirubin 0.9, AST 44 H, ALT 24, Alkaline Phosphatase 77, Troponin I < 0.01, Total Protein 8.0, Albumin 5.4 H, Globulin 2.6, Albumin/Globulin Ratio 2.1 H, Triglycerides 51, Cholesterol 132 L, LDL Cholesterol Direct 83.56 L, VLDL Cholesterol 10, HDL Cholesterol 44, Cholesterol/HDL Ratio 3.0, Plasma/Serum Alcohol < 10 04/11/25 15:50: Urine Color Yellow, Urine Appearance Clear, Urine pH 6.5, Ur Specific [place] 1.010, Urine Protein Negative, Urine Glucose (UA) Negative, Urine Ketones Negative, Urine Blood Trace-i, Urine Nitrate Negative, Urine Bilirubin Negative, Urine Urobilinogen 1.0, Ur Leukocyte Esterase Trace, Urine RBC 3-5, Urine WBC None, Ur Squamous Epith Cells 3-5, Urine Bacteria None, Urine Opiates Screen Negative, Urine Methadone Screen Negative, Ur Barbituates Screen Negative, Ur Phencyclidine Scrn Negative, Ur Amphetamines Screen Negative, U Benzodiazepines Scrn Positive H, Urine Cocaine Screen Negative, U Marijuana (THC) Screen Negative Orders (Tests/Meds): ED MEDICATIONS Generic Name Dose Route Start Last Admin Trade Name Freq PRN Reason Stop Dose Admin Sodium Chloride 10 ml 04/11/25 15:10 Sodium Chloride 0.9% 10ml Flush Syringe IV 05/11/25 15:09 NEEDED PRN Maintain IV Site Discontinued Medications Generic Name Dose Route Start Last Admin Trade Name Freq PRN Reason Stop Dose Admin Iopamidol 80 ml 04/11/25 16:16 04/11/25 16:17 Iopamidol-370 (76%);100ml Bottle IV 04/11/25 16:17 80 ml ONCE ONE Administration Sodium Chloride 50 ml 04/11/25 16:16 04/11/25 16:17 0.9 % Sodium Chloride 50 Ml Vial IV 04/11/25 16:17 50 ml ONCE ONE Administration Sodium Chloride 10 ml 04/11/25 16:16 04/11/25 16:17 Sodium Chloride 0.9% 10ml Syr (Rad Only) IV 04/11/25 16:17 10 ml ONCE ONE Administration ORDERS Category Date Time Status CT angio head Stat Cat Scan 04/11/25 15:[address] angio neck Stat Cat Scan 04/11/25 15:[address] head/brain wo con Stat Cat Scan 04/11/25 15:10 Completed POCUS Point of Care (ER Only) Stat Exams 04/11/25 14:06 Completed Activated Partial Thrombo Time Stat Lab 04/11/25 14:17 Completed Complete Blood Count Auto Diff Stat Lab 04/11/25 14:17 Completed Comprehensive Metabolic Panel Stat Lab 04/11/25 14:17 Completed Drug Screen,Urine Stat Lab 04/11/25 15:50 Completed Ethyl Alcohol Stat Lab 04/11/25 14:17 Completed Lipid Panel Stat Lab 04/11/25 14:17 Completed Prothrombin Time INR Stat Lab 04/11/25 14:17 Completed Troponin I Stat Lab 04/11/25 14:17 Completed Urinalysis and Microscopic Stat Lab 04/11/25 15:50 Completed ECG Request Stat Y 04/11/25 15:10 Ordered Medical Decision Narrative: In summary patient is 69-year-old female past medical history of scrota but presents Emergency Department for evaluation of acute monocular vision loss. Patient is hemodynamically stable nontoxic-appearing upon arrival, afebrile. Differential diagnosis includes central retinal artery occlusion, retinal attachment, vitreous hemorrhage, among others. Workup in totality will be conducted with hematologic labs, noncontrasted CT scan of the head CTA of the head and neck. Patient is well outside the window for thrombolytics. Syphl-rb-ydmp ultrasound is equivocal but I do not see any discrete retinal detachment although there is echogenic opacities in her posterior globe which would be not what I would expect. CT imaging pending at time of transfer of care to the oncoming physician, Dr. Carey. Procedure: Procedure performed was uqvwm-[id number]-[id number] ultrasound. Procedure performed by Reji Szymanski. Using a linear probe the optic nerve sheath diameter was measured and was less than 5 mm. There appears to be echogenic material in the posterior globe however there is no discrete retinal or vitreous detachment identified. Images were saved to permanent archive and were technically adequate. Patient tolerated procedure well there were no immediate complications. Reassessment 5:35 PM patient continues to have symptoms but states they are improving somewhat. Given the fact that she had some haziness and some vision able to see colors and does not have complete vision loss I still suspect this is most likely a posterior chamber abnormality and will need ophthalmology. A stroke or CRAO that is recanalizing is still in the differential. I spoke with Dr. Martínez at transfer center who agreed that she needs ophthalmology and likely neurology to weigh in on the diagnosis. I spoke with the patient and the patient's family member at the bedside and she agreed to be transferred. We had multiple other EMS transfer since she opted to go by POV and her family member at the bedside will take her which is fine from my perspective that she is very stable. Images have been shared and a disc with images also sent with her. Critical Care <Reji Szymanski MD - Last Filed: 04/11/25 16:06> Critical Care Time Critical Care Time: No <Aubrey Carey MD - Last Filed: 04/11/25 17:36> Critical Care Time Critical Care Time: Yes Attestation: On 04/11/25, the high probability of a clinically significant, sudden or life threatening deterioration of the following system(s) required my full and direct attention, intervention and personal management. The time I documented below is in addition to time spent performing reported procedures but includes the following listed in this critical care notation. Total Time Total Critical Care Time: 35
[2025-04-11 15:17] LABS: Hematocrit 40.2 % (37.0-47.0); Hemoglobin 13.1 g/dL (12.2-16.2); Immature Granulocytes % 0.4 %; Mean Corpuscular HGB Conc 32.6 g/dL (31.8-35.4); Mean Corpuscular Hemoglobin 30.6 pg (27.0-31.2); Mean Corpuscular Volume 93.9 fl (81-99); Nucleated Red Blood Cells % 0 %; Platelet Count 296 K/mm3 (142-424); Red Blood Count 4.28 M/mm3 (4.20-5.40); Red Cell Distribution Width-SD 42.5 fL; White Blood Count 5.3 K/mm3 (4.8-10.8)
[2025-04-11 15:24] LABS: Activated Partial Thrombo Time 26.8 seconds (22.8-30.6); INR 0.95 (0.9-1.1); Prothrombin Time 10.6 seconds (10.1-12.5)
[2025-04-11 15:25] LABS: Chloride 100 mmol/L (98-107); Potassium 4.1 mmoL/L (3.5-5.1); Sodium 138 mmol/L (136-145)
[2025-04-11 15:28] LABS: Alanine Aminotransferase 24 U/L (12-78); Alkaline Phosphatase 77 U/L (38-126); Aspartate Amino Transferase 44 U/L (14-36); Bilirubin,Total 0.9 mg/dl (0.2-1.3); Blood Urea Nitrogen 12 mg/dl (7-17); Calcium 9.3 mg/dl (8.4-10.2); Cholesterol 132 mg/dl (140-200); Creatinine Clearance Estimated 50 mL/min (50-200); Creatinine,Serum 0.70 mg/dl (0.52-1.04); Estimated Glomerular Filt Rate 83 ml/min (>60); GFR (African American) 100 ML/MIN (>60); Glucose 98 mg/dl (74-100); HDL Cholesterol 44 mg/dl (40-60); Total Protein,Serum 8.0 g/dl (6.3-8.2); Triglycerides 51 mg/dl (30-150)
--- NOTE | 2025-04-11 15:29 | ECG_ITS ---
APPROVED REPORT Exam: Resting ECG HR:57 bpm ECG Measurements Heart Rate 57 AXES MT 128 P 51 QRSd 77 QRS 80 QT 409 T 56 QTc 402 Conclusion SINUS BRADYCARDIA MINIMAL ST DEPRESSION [0.025+ mV ST DEPRESSION] BORDERLINE ECG Electronically signed by : FLORES WOODARD, 04/14/2025 15:03:47
[2025-04-11 15:43] LABS: Anion Gap 13.1 mEq/L (5-15); Carbon Dioxide 29 mmol/L (22.0-30.0); Troponin I < 0.01 ng/ml (0.00-0.034)
[2025-04-11 15:44] LABS: Albumin Level 5.4 g/dl (3.5-5.0); Albumin/Globulin Ratio 2.1 (1.1-1.8); Globulin 2.6 g/dL (1.3-3.2)
[2025-04-11 16:00] LABS: Microscopic, Urine URINE MICROSCOPIC (MICROSCOPIC)
[2025-04-11 16:03] LABS: Bilirubin,Urine Negative (Negative); Color,Urine YELLOW (Yellow); Glucose,Urine (UA) Negative (Negative); Ketones,Urine Negative (Negative); Leukocyte Esterase,Urine TRACE (Negative); PH,Urine 6.5 (5.0-8.5); Protein,Urine Negative (Negative); Specific Gravity, Urine 1.010 (1.005-1.030); Urobilinogen,Urine 1.0 EU/dl (0.2)
[2025-04-11 16:15] LABS: Barbiturates Screen,Urine Negative ng/ml (<200)
[2025-04-11 16:16] LABS: Amphetamine/Metha Screen,Urine Negative ng/ml (<1000); Benzodiazepines Screen,Urine Positive ng/ml (<200)
[2025-04-11] MEDS: 0.9 % SODIUM CHLORIDE 50 ML VIAL IV (16:17)
[2025-04-11] MEDS: IOPAMIDOL-370 (76%);100ML BOTTLE 80 ML IV (16:17)
[2025-04-11] MEDS: SODIUM CHLORIDE 0.9% 10ML SYR (RAD ONLY) 10 ML IV (16:17)
[2025-04-11 16:18] LABS: Methadone Screen,Urine Negative ng/ml (<300)
[2025-04-11 16:19] LABS: Opiate Screen,Urine Negative ng/ml (<300)
[2025-04-11 16:20] LABS: Phencyclidine Screen,Urine Negative ng/ml (<25)
--- NOTE | 2025-04-11 17:22 | PC.NURSE ---
On the phone now with for a patient transfer per for almost complete vision loss in the Left eye over the last 48 hours.
--- NOTE | 2025-04-12 14:16 | PC.NURSE ---
Got in the patients chart per parole supervisor Maggie Givens. [facility] called and said they had no information from the patients visit from yesterday so i printed the packet and had it faxed over.
== END 2025-04-11 17:56 | disposition other institution (70) ==
PROVIDERS: Emergency Provider Emergency Medicine; PCP Internal Medicine Adolescent Medicine
DX: H54.62 Unqualified visual loss, left eye, normal vision right eye (principal); I10 Essential (primary) hypertension; E78.5 Hyperlipidemia, unspecified; Z86.79 Personal history of other diseases of the circulatory system; Z95.5 Presence of coronary angioplasty implant and graft
CPT/HCPCS: 70450; 70496; 70498; 80053; 80061; 80307; 80320; 81001; 84484; 85025; 85610; 85730; 93005; 99285; Q9967